=== PATIENT | female | born 1955 | race Caucasian/White ===

== ENCOUNTER 2018-06-15 10:02 | Outpatient (CLI) | payer OTHER ==
--- NOTE | 2018-06-15 14:52 | PET ---
PET WITH CT SKULL TO MID THIGH 06/15/18 CLINICAL HISTORY: Anal cancer. RADIOPHARMACEUTICAL: 13 millicuries fluorine 18 FDG IV. FINDINGS: Corresponding to the patient's provided clinical history of anal cancer, there is abnormal hypermetab olic activity conforming to a mass at the anal verge, with SUV measurements up to 11.2. Additionally, at the perineal region, there is hypermetabolic activity likely related to adjacent malignancy with SUV measuring 5.8. Numerous prominent, hypermetabolic bilateral iliac chain lymph nodes are present, SUV up to approximately 3. There are numerous bilateral perihilar/mediastinal hypermetabolic lymph n odes with SUV measurement up to 5.2. Multifocal abnormal pleural based and parenchymal densities of the chest are present, most pronounced on the right. There is a mild nodular contour of the liver which may be on the basis of cirrhosis. E vidence of prior cholecystectomy. Diffuse soft tissue edema is present. There is colonic diverticulos is. IMPRESSION: Evidence of hypermetabolic activity at the anal verge and adjacent perineum compatible with malignanc y. Bilateral iliac chain adenopathy is present. There is multifocal bilateral perihilar/mediastinal adenopathy. Prominent pleural based and parenchymal disease of the right hemithorax. POS: [facility]
== END 2018-06-15 10:03 | disposition home or self-care (01) ==
LOC: PET 10:02
PROVIDERS: ATTEND Internal Medicine Hematology & Oncology
DX: C21.0 Malignant neoplasm of anus, unspecified (principal); R59.0 Localized enlarged lymph nodes; R91.8 Other nonspecific abnormal finding of lung field
CPT/HCPCS: 78815; A9552

== ENCOUNTER 2018-07-25 12:04 | Inpatient (IN) | payer OTHER ==
[~2018-07-25 12:04] MED LIST: ISOVUE-370 76%-LOCM 1 ML ONE
[2018-07-25 13:37] LABS: Bilirubin Negative (Negative); Blood, Urine Large (Negative); Clarity CLEAR (Clear); Glucose, Urine (Dipstick) Negative (Negative); Leukocyte Moderate (Negative); Nitrite Negative (Negative); Protein, Urine (Dipstick) Negative (Neg-Trace); Specific Gravity, Urine 1.003 (1.002-1.036); Urobilinogen 0.2 mg/dL (0.2-1.0)
[2018-07-25 13:55] LABS: Bacteria/HPF None Seen HPF (None Seen); Hyaline Casts/LPF 0-3 HYALINE CAST LPF (0-3 Hyaline); Pathc Cast-AUWi Flag 0.14 (0-2.49); Squamous Epithelial None Seen HPF (0-3); WBC/HPF 0-3 HPF (0-3)
--- NOTE | 2018-07-25 14:24 | RAD ---
SINGLE VIEW OF THE CHEST: Comparison: 02-28-03 History: Increased shortness of breath. FINDINGS: Single view of the chest shows an enlarged but stable cardiomediastinal silhouette. There is a right sided Mediport with tip in the superior vena cava. There is a moderate right pleural effusion with ad jacent atelectasis versus infiltrate. IMPRESSION: Right pleural effusion with adjacent atelectasis versus infiltrate. POS: [facility]
[2018-07-25] MEDS ORDERED: cefTRIAXone\\ROCEPHIN 1 GM VIAL ONE (14:30)
--- NOTE | 2018-07-25 14:40 | PDOC.FPRHP ---
- History of Present Illness Chief Complaint: SOB History of Present Illness: Ms Jiménez is a 62yo female with pmh of sarcoidosis, Anal CA, Afib, DM, and HTN presenting with SOB. Reports SOB started this morning. Also reports chest congestion and new leg edema. This afternoon she had appt with Oncologist, Dr Boone and Radiation onc, Dr Kumari. At her appt her SpO2 was noted to be 77% and she was instructed to go to ED. She is on chronic O2 at 3L during the day and 5L at night along with CPAP for sleep apnea. Her oncologist Dr Boone started her on a 7 week course of Cipro that ended due to her low WBC count. She is evaluated annually over the past 6 years for pleural effusions, has required thoracentesis twice with 2L taken off and one month ago attempt to drain/test a loculated effusion was unsuccessful. Symptoms are consistent with symptoms she has had in the past when her effusion has gotten too large. Recently had lasix increased to BID from once daily a few months ago. Denies fever, chills, nausea, vomiting, chest pain, dyspnea with position changes. Her Anal cancer was diagnosed end of May this year. She has been receiving radiation and chemo but that last dose of radiation was held due to rash and open lesion on ground as well as a low WBC. The open area are in groin creases and under pannus. She has been treating at home with aquaphor and warm soaks. She reports some bleeding from the area but denies drainage or change in odor. ED Course: Duoneb - Allergies/Adverse Reactions Allergies Allergy/AdvReac Type Severity Reaction Status Date / Time celecoxib [From Celebrex] Allergy Verified 07/25/18 17:55 codeine Allergy Verified 07/25/18 17:55 naproxen Allergy Verified 07/25/18 17:55 Sulfa (Sulfonamide Allergy Verified 07/25/18 17:55 Antibiotics) - Home Medications Medication Instructions Recorded Confirmed Type Carvedilol 1 tab PO BID 02/12/17 07/25/18 History Fluticasone/Salmeterol [Advair 2 puff INH TID 02/12/17 07/25/18 History Diskus 250/50] Rivaroxaban [Xarelto] 1 tab PO HS 02/12/17 07/25/18 History sitaGLIPtin Phosphate [Januvia] 50 mg PO DAILY 02/12/17 07/25/18 History Acetaminophen [Tylenol Regular 325 mg PO Q4H PRN 07/25/18 07/25/18 History Strength] Acetaminophen [Tylenol Regular 650 mg PO Q4H PRN 07/25/18 07/25/18 History Strength] Ciprofloxacin HCl 1 tab PO BID 07/25/18 07/25/18 History Escitalopram Oxalate [Lexapro] 1 tablet PO DAILY-AC 07/25/18 07/25/18 History Furosemide 1 tablet PO DAILY 07/25/18 07/25/18 History Lisinopril [Zestril] 1 tablet PO DAILY 07/25/18 07/25/18 History Potassium Chloride [Klor-Con M10] 1 tab PO DAILY 07/25/18 07/25/18 History Prochlorperazine Maleate 10 mg PO ASDIR 07/25/18 07/25/18 History Sildenafil Citrate [Sildenafil] 1 tablet PO TID 07/25/18 07/25/18 History diphenhydrAMINE HCl 1 tablet PO DAILY 07/25/18 07/25/18 History [Diphenhydramine HCl] - History PMHx: Anal CA, sarcoidosis, Afib, DM2, HTN, MARLENE, Osteoporosis, L1 compression fx PSHx: Cholecystectomy, , hysterectomy FHx: Dad - lung cancer, Mom - aneurysm Social: Denies tobacco, alcohol or drug use. - Review of Systems General: reports: weight/appetite/sleep changes (lost 4 lbs last week). denies : fever/chills ENT: denies: nasal congestion, rhinorrhea Respiratory: reports: cough (at night), shortness of breath Cardiovascular: reports: edema. denies: chest pain Gastrointestinal: reports: diarrhea (chronic, on imodium). denies: abdominal pain Genitourinary: denies: incontinence, dysuria Skin: reports: rashes. denies: lesions Musculoskeletal: reports: arthritis/arthralgias. denies: tenderness Neurological: reports: numbness, weakness - Vital signs BP: 142/71 HR: 108 RR: 26 Tmax: 99.3 Pox: 99% on 4L Wt: 108.4kg - Physical Exam Constitutional: NAD, awake, alert and oriented, well developed -Constitutional: Speaking in short sentences due to SOB HEENT: normocephalic and atraumatic, conjunctiva clear, MMM, oropharynx clear Neck: supple, trachea midline Heart: other (2+ pitting edema on b/l LE) -Heart: Irregular rate and rhythm. Murmur present -Lungs: Decreased breath sounds, mild wheezing in upper lung mejias bilaterally Abdomen: soft, non-tender, bowel sounds present Neurological: no focal deficit -Skin: Radiation skin changes superimposed with moist erythematous open skin areas in bilateral groin and under pannus. No purulent drainage. Psychiatric: normal mood and affect, good judgment and insight, intact recent and remote memory FMR H&P: Results - Labs Result Diagrams: 07/26/18 04:14 07/26/18 04:14 Lab results: Urine Ketones Negative mg/dL (Negative) 07/25/18 13:19 Urine Blood Large (Negative) H 07/25/18 13:19 Urine Nitrite Negative (Negative) 07/25/18 13:19 Ur Leukocyte Esterase Moderate (Negative) H 07/25/18 13:19 Urine RBC 4-6 HPF (0-3) 07/25/18 13:19 Urine WBC 0-3 HPF (0-3) 07/25/18 13:19 Ur Squamous Epith Cells None Seen HPF (0-3) 07/25/18 13:19 Urine Bacteria None Seen HPF (None Seen) 07/25/18 13:19 - EKG Interpretation EKG: Afib with controlled ventricular response - Radiology Interpretation Chest x-ray Status: report reviewed by me Additional comment: Right pleural effusion with atelectasis vs infiltrate CT scan - chest Status: report reviewed by me Additional comment: No evidence of PE, slight interval worsening of loculated R pleural fluid and patchy areas of parenchymal air space and interstitial infilatrate throughout each lung. FMR H&P: A/P - Problem List (1) HTN (hypertension) Current Visit: Yes Status: Chronic Code(s): I10 - ESSENTIAL (PRIMARY) HYPERTENSION (2) MARLENE (obstructive sleep apnea) Current Visit: Yes Status: Chronic Code(s): G47.33 - OBSTRUCTIVE SLEEP APNEA (ADULT) (PEDIATRIC) (3) Pulmonary HTN Current Visit: Yes Status: Chronic Code(s): I27.20 - PULMONARY HYPERTENSION , UNSPECIFIED (4) Afib Current Visit: Yes Status: Chronic Code(s): I48.91 - UNSPECIFIED ATRIAL FIBRILLATION (5) DMII (diabetes mellitus, type 2) Current Visit: Yes Status: Chronic (6) Anal carcinoma Current Visit: Yes Status: Chronic Code(s): C21.0 - MALIGNANT NEOPLASM OF ANUS, UNSPECIFIED (7) Sarcoidosis Current Visit: Yes Status: Chronic Code(s): D86.9 - SARCOIDOSIS, UNSPECIFIED (8) Osteoporosis Current Visit: Yes Status: Chronic Code(s): M81.0 - AGE-RELATED OSTEOPOROSIS W/O CURRENT PATHOLOGICAL FRACTURE (9) Compression fracture of L1 lumbar vertebra Current Visit: Yes Status: Chronic Code(s): S32.010A - WEDGE COMPRESSION FRACTURE OF FIRST LUMBAR VERTEBRA, INIT (10) Acute and chronic respiratory failure with hypoxia Current Visit: Yes Status: Acute Code(s): J96.21 - ACUTE AND CHRONIC RESPIRATORY FAILURE WITH HYPOXIA - Plan Acute on Chronic Respiratory Failure - likely 2/2 pleural effusion vs fluid overload in pt with sarcoidosis - No evidence of PE on CTA, BNP elevated at 418 - CT with worsening of R pleural effusion and patchy areas of parenchymal airspace and interstitial infiltrate bilaterally - Pt on home O2 @2L and 5L at HS with CPAP at HS for MARLENE - Continue to titrate O2 to maintain O2 >90% - Pulmonology consulted, apprec recs - Lasix 40mg IV BID - Strict I&Os/daily wts/fluid restriction - Echo in AM - Procal to eval for infection - Admit to IMCU Hyponatremia - 128, unknown baseline - Will order Urine Na/Osm & Serum Osm - Fluid restriction as pt appears to by hypervolemic Radiation dermatitis with possible infection - Appears to have yeast infection on exam - Consult wound care Afib - Currently rate controlled at 108 - Continue home Xarelto, Coreg Diarrhea - C diff ordered DMII - Mild SSI - Hypoglycemic protocol - ACHS accuchecks - Continue home Januvia Leukocytopenia - Pt recently completed 7 day course Cipro rx'ed by Dr Boone pts oncologist for ppx due to immunocompromised state - Will place pt on neutropenic precautions and diet HTN - Continue home Lisinopril, Coreg Sarcoidosis, Pulm HTN - Continue home Advair and duonebs - Continue O2 MARLENE - Continue CPAP at HS Anal Cancer - Follows with Dr Kumari and Dr Boone Code Status: FULL DVT ppx: Xarelto FMR H&P: Upper Level - Pertinent history 62 y/o F PMHx sarcoidosis, a-fib, anal cancer, and pulmonary HTN presents to the ED complaining of SOB. She reports that she went to her oncologist and was found to have O2 sats of 78% . She reports that her oncologist, Dr. Boone, started her on abx because her WBC count was low. She is chronically on 3L O2 during the day and CPAP at night for her MARLENE. She reports that this morning she could tell that her chest was more congested and over the weekend she was noticing more swelling in her legs. She has been getting her effusion drained for the past 6 years. It has gotten drained twice. They check her effusion every year, but this year when she checked it she said they didn't have to drain it. She states that this is about how she feels whenever her effusion gets too large. She has a cough at night that she states is normal this time of year. She reports some SOB on exertion. She had her lasix increased to twice a day about 2 months ago. She states she had a thoracentesis around that time as well, but they couldn't get into the pocket to drain it. She denies any fever, chills, chest pain, orthopnea. She started radiation for her anal cancer at the end of May 2018 and she was on chemo at the start of the radiation and she will have another dose after radiation. She states that her WBC count was low, so Dr. Boone gave her one week of cipro that she completed last . She has a rash in her groin area and under her panus that she has been using aquaphor and soaks for. She reports that she sweats a lot and the wound will bleed some. She denies any foul odor or drainage otherwise. She states that she had the rash prior to radiation, but it got worse after radiation was started. - Pertinent findings Vitals: BP 148/75, HR 106, RR 18, Temp 99.3, O2 sat 95% on 4L O2 PE: Gen - alert, oriented, appears in respiratory distress CV - irregularly irregular, no murmurs Resp - Speaking in short sentences, tachypenic, decreased breath sounds on R, with some diffuse rales bilaterally. Ext - 2+ pitting edema in BLE Skin - erythematous, moist rash under pannus and in the fold between inner thighs and groin - Plan Date/Time: 07/25/18 1439 I, Brielle Curry MD, PGY-2, have evaluated this patient and agree with findings/ plan as outlined by procurement internship resident. Pertinent changes/additions are listed here. 62 y/o F PMHx sarcoidosis, a-fib, anal cancer presented in Acute Respiratory Failure 1. Acute on Chronic Hypoxic Respiratory Failure Could be 2/2 worsened sarcoidosis vs worsened R pleural effusion vs CHF. Pt initially presented with O2 sat 75% on RA. She was promptly started on O2 by NC and her O2 sats improved, however she would drop down into the 80s when talking. She has been tachycardic and tachypneic, but afebrile. CTA showed no evidence of PE, but worsening of R pleural effusion and patchy areas of parenchymal airspace and interstitial infiltrate bilaterally. Pt fluid overloaded on exam. -Admit to IMCU -Continue O2 prn with CPAP at night for MARLENE -Consult Efrain with Pulmonology, appreciate recs -Echo -Lasix 40mg IV BID -Fluid restrict, daily weights, strict I/O's -Procalcitonin as pt is immunocompromised 2. Pancytopenia Pt chronically pancytopenic since cancer diagnosis, unsure if this was before or after she started chemo. -Neutropenic precautions -Monitor 3. Hyponatremia Initial Na 128. -Will check urine Na, Osm -Concern for hypervolemic hyponatremia, so will fluid restrict pending results 4. Chronic R Pleural Effusion Gets thoracentesis by Dr. Torres at the [facility]. Appears worsened on CT from prior. -Consult Dr. Zuniga with pulm, appreciate recs 5. Radiation dermatitis with possible yeast infection -Consult wound care 6. A-Fib -Continue home meds 7. Sarcoidosis Pt chronically on 3L O2. -Continue duonebs -Continue O2 prn -Pulm on board, appreciate recs 8. Anal Cancer Pt is receiving radiation for anal cancer. Dr. Boone is oncologist. Dr. Kumari radiation oncologist. -Will notify Dr. Boone that pt is admitted -Check c. diff due to pt's ongoing diarrhea 9. DM2 -continue home meds, accuchecks, diabetic diet 10. MARLENE -Continue CPAP at night Code Status: Full VTE ppx: pt on xarelto, will continue Attending Addendum - Attending Addendum Date/Time: 07/26/18 0856 I personally evaluated the patient and discussed the management with Dr. Torres at time of admission yesterday evening. I agree with the History, Examination, Assessment and Plan documented above with any addition or exceptions noted below.
[2018-07-25 15:07] LABS: Hemoglobin 8.8 g/dL (12.0-16.0); Mean Corpuscular HGB CONC 32.6 g/dL (32.0-36.0); Mean Corpuscular Hemoglobin 33.5 pg (27.0-31.0); RBC Distribution Width 23.1 % (11.5-14.5); Red Blood Cell (RBC) Count 2.61 mill/uL (4.20-5.40); White Blood Cell (WBC) Count 1.5 thou/uL (4.8-10.8)
[2018-07-25] MEDS ORDERED: Azithromycin 500 MG VIAL ONE (15:15)
[2018-07-25 15:19] LABS: ALT (SGPT) 9 U/L (8-55); AST (SGOT) 25 U/L (5-34); Albumin 3.7 g/dL (3.4-4.8); Alkaline Phosphatase 240 U/L (40-150); Anion Gap 12 mmol/L (10-20); BUN (Urea Nitrogen) 11 mg/dL (9.8-20.1); Bilirubin, Total 0.9 mg/dL (0.2-1.2); Calc. Creatinine Clearance 0 mL/min (70-130); Calcium 9.5 mg/dL (7.8-10.44); Carbon Dioxide 28 mmol/L (23-31); Chloride 92 mmol/L (98-107); Estimated GFR-MDRD 77; Globulin 4.2 g/dL (2.4-3.5); Glucose 99 mg/dL (80-115); Potassium 4.3 mmol/L (3.5-5.1); Protein, Total 7.9 g/dL (6.0-8.3); Sodium 128 mmol/L (136-145)
[2018-07-25 15:23] LABS: CKMB 0.5 ng/mL (0-6.6); Troponin I Less than 0.010 ng/mL (< 0.028)
[2018-07-25 15:30] LABS: #Lymphocytes 0.2 thou/uL (1.20-3.40); #Monocytes 0.2 thou/uL (0.11-0.59); #Neutrophils 1.1 thou/uL (1.40-6.50); %Basophils 0.3 % (0.0-1.0); %Lymphocytes 10.3 % (21.0-51.0); %Monocytes 14.7 % (0.0-10.0); %Neutrophils 73.6 % (42.0-75.0); Anisocytosis SLIGHT = 6-15 cells (100X) (0-5/hpf); Elliptocytes SLIGHT = 2-5 cells (100X) (0-1/hpf); Hypochromia SLIGHT = 6-15 cells (100X) (0-5/hpf); MDiff Complete? YES; Mean Platelet Volume 10.6 fL (7.4-10.4); Microcytosis SLIGHT = 6-15 cells (100X) (0-5/hpf); PLT Morphology Comment Appears Decreased; Platelet Count 75 thou/uL (130-400); Poikilocytosis SLIGHT = 6-15 cells (100X) (0-5/hpf)
[2018-07-25] MEDS ORDERED: Acetaminophen 500 MG TAB ONE (15:55)
--- NOTE | 2018-07-25 16:16 | CT ---
CT ARTERIOGRAM CHEST WITH IV CONTRAST AND 3D MIP IMAGING: Date: 07/25/18 HISTORY: Dyspnea. COMPARISON: PET CT exam from 06/15/18. FINDINGS: There is good contrast opacification of the pulmonary arteries and thoracic aorta with normal branchi ng of the great vessels from the aortic arch. Scattered areas of enlarged lymph nodes throughout the mediastinum are similar in appearance to recent PET CT. Loculated pleural fluid on the right has incr eased slightly. Patchy areas of parenchymal infiltrate throughout each lung, right worse than left, h ave also progressed somewhat. No evidence of pneumothorax. IMPRESSION: 1. No CT evidence of pulmonary embolus. 2. Slight interval worsening of loculated right pleural fluid and patchy areas of parenchymal air sp mable and interstitial infiltrate throughout each lung. Mediastinal adenopathy appears stable. POS: [facility]
[2018-07-25] MEDS ORDERED: Ondansetron ODT 4 MG TAB SL PRN (17:31)
[2018-07-25] MEDS ORDERED: Acetaminophen 325 MG TAB PO PRN ×3 (17:31→18:49)
[2018-07-25] MEDS ORDERED: Ondansetron PF 4 MG/2 ML Vial IVP PRN (17:31)
[2018-07-25] MEDS ORDERED: Dextrose 50% Abboject 50 ML SYRINGE SLOW IVP PRN (17:45)
[2018-07-25] MEDS ORDERED: Dextrose 5% in Water 1,000 ML IV PRN (17:45)
[2018-07-25] MEDS ORDERED: HumaLOG 300 UNITS/3 ML VIAL SC PRN ×2 (17:45)
[2018-07-25] MEDS ORDERED: Furosemide 40 MG/4 ML VIAL SLOW IVP SCH (18:30)
[2018-07-25] MEDS ORDERED: Prochlorperazine Maleate 5 MG TAB PO SCH (19:00)
[2018-07-25] MEDS ORDERED: Rivaroxaban 10 MG TAB PO SCH (21:00)
[2018-07-25] MEDS: Sildenafil Citrate 20 MG TAB PO SCH (21:19)
[2018-07-25] MEDS: Carvedilol 3.125 MG TAB PO SCH (21:19)
[2018-07-25 21:53] LABS: Osmolality, Urine 217 mOsm/kg (300-900)
[2018-07-25 22:04] LABS: Sodium, Urine 84 mmol/L (Not Available)
[2018-07-25] MEDS ORDERED: Aquaphor 30 GM JAR TOP PRN (22:29)
[2018-07-26] MEDS: Loperamide HCl 2 MG CAP PO PRN ×4 (03:00→20:11)
[2018-07-26 04:51] LABS: Anion Gap 9 mmol/L (10-20); BUN (Urea Nitrogen) 10 mg/dL (9.8-20.1); Calc. Creatinine Clearance 138 mL/min (70-130); Calcium 9.2 mg/dL (7.8-10.44); Carbon Dioxide 35 mmol/L (23-31); Chloride 91 mmol/L (98-107); Cholesterol 117 mg/dl (< 200 Desired); Estimated GFR-MDRD 81; Glucose 94 mg/dL (80-115); HDL Cholesterol 60 mg/dL (>60 Neg Risk); LDL Cholesterol, Calculated 45 mg/dL; Potassium 3.4 mmol/L (3.5-5.1); Sodium 132 mmol/L (136-145); Triglycerides 58 mg/dL (Less than 150)
--- NOTE | 2018-07-26 06:26 | PDOC.FM ---
- Subjective Subjective: Pt has had multiple bloody stools overnight. She has had 2 doses of imodium. Reports difficulty breathing and fatigue related to frequent urination after lasix doses. She expressed having a catheter would help with comfort and shortness of breath. Denies pain at this time. Per Dr Torres he first remembers meeting pt during a 2014 admission for anasarca. She was noted to have nephrotic range proteinuria. Momo Ellison ( Nephrology) was consulted and the workup was ultimately negative. The pleural effusion at this time was not loculated, pleural fluid was slightly exudative. Reports Pt was most recently hospitalized Apr 2018, They removed 40lbs with diuresis. At this time it was noted her pleural effusion had become loculated. Dr Hung Silverio was consulted for decortication but he did not pursue surgery due to her cardiac risk being too high to tolerate surgery. Dr Jarrell Turner is her bushing press operator. Her most recent Echo was 2017: right side of the heart was severely dilated, with severely elevated pulmonary pressures. Pro BNP was 1300. No known left heart failure. Unknown etiology of Pulm HTN. She does have hx of MARLENE but has reportedly been very compliant with CPAP, no smoking hx. Possible hx of previous FenPhen use. - Objective MAR Reviewed: Yes Vital Signs & Weight: Vital Signs (12 hours) Temp Pulse Resp BP Pulse Ox 07/26/18 04:00 97.3 F L 102 H 18 161/78 H 95 07/26/18 00:00 98.2 F 88 17 111/67 92 L 07/25/18 19:00 98.9 F 104 H 18 150/80 H 91 L Weight Weight 107.671 kg I&O: 07/24/18 07/25/18 07/26/18 06:59 06:59 06:59 Intake Total 500 Output Total 1595 Balance -1095 Result Diagrams: 07/26/18 04:14 07/26/18 04:14 <Katt Torres - Last Filed: 07/26/18 11:52> - Objective Vital Signs & Weight: Vital Signs (12 hours) Temp Pulse Resp BP BP Pulse Ox 07/26/18 14:38 117 H 20 92 L 07/26/18 11:10 110 H 28 H 90 L 07/26/18 09:39 121 H 136/82 07/26/18 08:04 95 07/26/18 08:00 98.2 F 121 H 28 H 128/68 34 L 07/26/18 04:00 97.3 F L 102 H 18 161/78 H 95 Weight Admit Weight 110.677 kg Weight 107.671 kg I&O: 07/25/18 07/26/18 07/27/18 06:59 06:59 06:59 Intake Total 500 Output Total 1595 Balance -1095 Result Diagrams: 07/26/18 04:14 07/26/18 04:14 <Reza Little - Last Filed: 07/26/18 15:59> Phys Exam - Physical Examination Constitutional: NAD Respiratory: no wheezing, clear to auscultation bilateral Irregular rate and rhythm Gastrointestinal: soft, non-tender, positive bowel sounds Musculoskeletal: edema present Neurological: moves all 4 limbs Psychiatric: normal affect, A&O x 3 <Katt Torres - Last Filed: 07/26/18 11:52> Dx/Plan (1) HTN (hypertension) Code(s): I10 - ESSENTIAL (PRIMARY) HYPERTENSION Status: Chronic (2) MARLENE (obstructive sleep apnea) Code(s): G47.33 - OBSTRUCTIVE SLEEP APNEA (ADULT) (PEDIATRIC) Status: Chronic (3) Pulmonary HTN Code(s): I27.20 - PULMONARY HYPERTENSION, UNSPECIFIED Status: Chronic (4) Afib Code(s): I48.91 - UNSPECIFIED ATRIAL FIBRILLATION Status: Chronic (5) DMII (diabetes mellitus, type 2) Status: Chronic (6) Anal carcinoma Code(s): C21.0 - MALIGNANT NEOPLASM OF ANUS, UNSPECIFIED Status: Chronic (7) Sarcoidosis Code(s): D86.9 - SARCOIDOSIS, UNSPECIFIED Status: Chronic (8) Osteoporosis Code(s): M81.0 - AGE-RELATED OSTEOPOROSIS W/O CURRENT PATHOLOGICAL FRACTURE Status: Chronic (9) Compression fracture of L1 lumbar vertebra Code(s): S32.010A - WEDGE COMPRESSION FRACTURE OF FIRST LUMBAR VERTEBRA, INIT Status: Chronic (10) Acute and chronic respiratory failure with hypoxia Code(s): J96.21 - ACUTE AND CHRONIC RESPIRATORY FAILURE WITH HYPOXIA Status: Acute - Plan Plan: Acute on Chronic Respiratory Failure - likely 2/2 fluid overload vs pleural effusion - No evidence of PE on CTA, BNP elevated at 418 - CT with worsening of R pleural effusion and patchy areas of parenchymal airspace and interstitial infiltrate bilaterally - Pt on home O2 @2L and 5L at HS with CPAP at HS for MARLENE - Continue to titrate O2 to maintain O2 >90% - Pulmonology consulted, apprec recs - Lasix 40mg IV BID - Strict I&Os/daily wts/fluid restriction - Echo today - Talked with Dr Torres regarding pts previous hospitalizations. - Will consult palliative care - Obtain records from Dr Boone, will call her to find out what her interpretation of the PET scan and the prognosis was. Squamous Cell Rectal Carcinoma - Follows with Dr Kumari and Dr Boone - PET scan 06/15/18 shows metastatic disease to lungs - possible cause of recurrent pleural effusion Hyponatremia, improving - Urine studies support hypervolemic hyponatremia - Continue with Fluid restriction Radiation dermatitis with possible infection - Appears to have yeast infection on exam - Consulted wound care Afib - Continue home Xarelto, Coreg Diarrhea - C diff neg DMII - Mild SSI - Hypoglycemic protocol - ACHS accuchecks - Continue home Januvia Leukocytopenia - Pt recently completed 7 day course Cipro rx'ed by Dr Boone pts oncologist for ppx due to immunocompromised state - Continue neutropenic precautions HTN - Continue home Lisinopril, Coreg Sarcoidosis, Pulm HTN - Reportedly stable per Dr Torres, pts conformal pad former - Continue home Advair and duonebs - Continue O2 Iron Deficiency anemia MARLENE - Continue CPAP at HS - Possible cause of pts Pulm HTN Code Status: FULL DVT ppx: Xarelto <Katt Torres - Last Filed: 07/26/18 11:52> (1) HTN (hypertension) Code(s): I10 - ESSENTIAL (PRIMARY) HYPERTENSION Status: Chronic (2) MARLENE (obstructive sleep apnea) Code(s): G47.33 - OBSTRUCTIVE SLEEP APNEA (ADULT) (PEDIATRIC) Status: Chronic (3) Pulmonary HTN Code(s): I27.20 - PULMONARY HYPERTENSION, UNSPECIFIED Status: Chronic (4) Afib Code(s): I48.91 - UNSPECIFIED ATRIAL FIBRILLATION Status: Chronic (5) DMII (diabetes mellitus, type 2) Status: Chronic (6) Anal carcinoma Code(s): C21.0 - MALIGNANT NEOPLASM OF ANUS, UNSPECIFIED Status: Chronic (7) Sarcoidosis Code(s): D86.9 - SARCOIDOSIS, UNSPECIFIED Status: Chronic (8) Osteoporosis Code(s): M81.0 - AGE-RELATED OSTEOPOROSIS W/O CURRENT PATHOLOGICAL FRACTURE Status: Chronic (9) Compression fracture of L1 lumbar vertebra Code(s): S32.010A - WEDGE COMPRESSION FRACTURE OF FIRST LUMBAR VERTEBRA, INIT Status: Chronic (10) Acute and chronic respiratory failure with hypoxia Code(s): J96.21 - ACUTE AND CHRONIC RESPIRATORY FAILURE WITH HYPOXIA Status: Acute <Reza Little - Last Filed: 07/26/18 15:59> Attending Addendum - Attending Addendum Date/Time: 07/26/18 0559 I personally evaluated the patient and discussed the management with Dr. Torres. I agree with the History, Examination, Assessment and Plan documented above with any addition or exceptions noted below. Appreciate Dr Zuniga and Dr Boone's input. <Reza Little - Last Filed: 07/26/18 15:59>
[2018-07-26 06:57] LABS: Hemoglobin 8.5 g/dL (12.0-16.0); Mean Corpuscular HGB CONC 32.1 g/dL (32.0-36.0); Mean Corpuscular Hemoglobin 33.5 pg (27.0-31.0); Mean Platelet Volume 10.1 fL (7.4-10.4); Platelet Count 76 thou/uL (130-400); RBC Distribution Width 23.4 % (11.5-14.5); Red Blood Cell (RBC) Count 2.55 mill/uL (4.20-5.40); White Blood Cell (WBC) Count 1.5 thou/uL (4.8-10.8)
[2018-07-26] MEDS: Furosemide 40 MG/4 ML VIAL SLOW IVP SCH ×2 (07:12→13:37)
[2018-07-26] MEDS: Mometasone/Formoterol 120 PUFF INHALER INH SCH ×2 (08:00→19:30)
[2018-07-26 08:20] LABS: Anisocytosis SLIGHT = 6-15 cells (100X) (0-5/hpf); Band 7 % (5-11); Lymphocytes 14 % (21-51); MDiff Complete? YES; Macrocytosis SLIGHT = 6-15 cells (100X) (0-5/hpf); Monocytes 12 % (0-10); Neutrophil 67 % (42-75); PLT Morphology Comment Appears Decreased
[2018-07-26] MEDS: Docusate 100 MG CAP PO SCH ×2 (08:54→20:12)
[2018-07-26] MEDS ORDERED: Alogliptin 25 MG TAB PO SCH (09:00)
[2018-07-26] MEDS: Potassium Chloride 10 MEQ TAB PO SCH (09:39)
[2018-07-26] MEDS: Escitalopram Oxalate 20 mg Tablet PO SCH (09:39)
[2018-07-26] MEDS: Lisinopril 5 MG TAB PO SCH (09:39)
[2018-07-26] MEDS: Carvedilol 3.125 MG TAB PO SCH ×2 (09:39→20:11)
[2018-07-26] MEDS: Sildenafil Citrate 20 MG TAB PO SCH ×3 (09:40→20:14)
[2018-07-26] MEDS: Rivaroxaban 10 MG TAB PO SCH (09:41)
[2018-07-26] MEDS ORDERED: Nystatin Powder 15 GM BOT TOP PRN (10:02)
--- NOTE | 2018-07-26 10:57 | CON ---
DATE OF CONSULTATION: 07/26/2018 HISTORY: She is a 62-year-old morbidly obese female, 108 kilograms. She presented to the ER yesterday after she had difficulty breathing and diarrhea while she was at [facility] for an appointment. Her sats were 75 on room air on arrival. She was placed on 4 liters nasal O2. Her oxygen saturation improved. She was transferred to the [facility], the reason for consultation. Recent diagnosis of anal cancer was made, undergoing radiation and chemotherapy. The patient has a remote diagnosis of sarcoidosis made years ago by Dr. Silverio following a mediastinos copy. She was lost to follow up and has not been seen back. This was made in 02/28/2003, cervical mediasti noscopy. About the same time, she underwent a gallbladder surgery by Dr. Swift for symptomatic gallbladder di sease. She has been seeking medical care at [facility] and is seeing Dr. So, Family Medicine physician the . In 2012, somewhere down the line, she was apparently seen back in the office where PFTs showed a mode rately severe restrictive pulmonary impairment with reduced diffusing capacity at 58%. She denies any history of TB or asthma. She can barely walk even 50 feet without getting markedly sh ort of breath. She does not smoke. Dr. Silverio had planned to do a decortication on her about 4 or 5 months ago when she was referred by a senior java software developer at [facility]. After 2 thoracentesis revealed an exudate, thin brown fluid was loculated , but because of her underlying medical problems surgery was a prohibitive risk. It was withheld. Today, she is denying any coughing or wheezing. PAST MEDICAL HISTORY: 1. Pulmonary hypertension. More than likely secondary to underlying morbid obesity, sleep apnea, in terstitial lung disease. 2. Sarcoidosis. 3. Atrial fibrillation. 4. Diabetes. 5. Hypertension. 6. Recurrent pleural effusion. PAST SURGICAL HISTORY: Gallbladder, cystectomy, multiple thoracentesis, at least 2 that I am aware o f. She had a anal biopsy for carcinoma. CHRONIC MEDICATIONS: Januvia 50, ____ 1 tablet 3 times a day, Xarelto 1 tablet at night time, Zestri l 1, Lasix, Advair 250, Lexapro, Coreg. ALLERGIES: CELEBREX and SULFA. REVIEW OF SYSTEMS: Otherwise, 10-point negative. PHYSICAL EXAMINATION: VITAL SIGNS: Her sats are 90% on 5 liters, respirations 28, pulse 120, temperature 99, blood pressur e 120/68. CHEST: Decreased breath sounds, no wheezing. CARDIAC: Normal S1, S2, no gallops. ABDOMEN: Soft, no masses. LABORATORY: White count 1.1, H&H 8 and 26, platelet count 76. Sodium 132. X-ray shows loculated right-sided pleural effusion. BNP 148. IMPRESSION: 1. Respiratory failure secondary to multiple medical problems. 2. Loculated pleural effusion. PET scan showing extensive mediastinal disease. 3. Metastatic anal cancer, possible. 4. Severe restrictive pulmonary impairment with reduced diffusing capacity, probably secondary to in terstitial lung disease. 5. Anal cancer status post chemo. 6. Pancytopenia. PLAN: Clearly pleural effusion cannot be tapped at this stage. Her long-term prognosis is grave. S he is not a candidate for decortication either considering that the PET scan showed mediastinal disea se. This could very well represent metastatic disease. The best option is to continue her on noctur nal CPAP, BiPAP. Continue neb treatments, supportive care. Pulmonary will follow. Consider palliative care input. Consultation note, 70 minutes, 50% spent in direct patient care.
[2018-07-26 11:31] VITALS: BMI 39.4
[2018-07-26] MEDS: Acetaminophen 325 MG TAB PO PRN (20:11)
--- NOTE | 2018-07-26 21:45 | CON ---
DATE OF CONSULTATION: 07/26/2018 HISTORY OF PRESENT ILLNESS: Ms. 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 She received her first cycle of chemotherapy with 5-FU and mitomycin approx imately 2 weeks ago and has been on daily radiation until last week when she developed increasing fernando rrhea as well as skin breakdown and her radiation was held 2 days out of last week into Tuesday of . She has also had some diarrhea as well as rectal bleeding likely secondary to the disease as well as radiation. Because of her sarcoidosis and other pulmonary problems, she has been hypoxic fo r the last several years and she was increasingly hypoxic as well as weak on the day of admission and was sent to the emergency room from the radiation oncologist office. Today, she states she feels be tter since being in the hospital. Her oxygenation level is up and she has a [place] catheter in place that she is not moving around as much. She states at rest she feels much better. She has had 2 epis odes of diarrhea today. One did have significant blood in it. She denies any fevers or chills. PAST MEDICAL HISTORY: 1. Recent diagnosis stage 3 anal squamous cell carcinoma. 2. Long history of sarcoidosis. 3. Secondary pulmonary hypertension. 4. Hypertension. 5. Depression. 6. Obesity . 7. Pancytopenia with leukopenia, likely secondary to sarcoid. CURRENT MEDICATIONS: 1. Tylenol p.r.n. 2. DuoNeb p.r.n. 3. Carvedilol 3.125 9 mg p.o. b.i.d. 4. Lexapro 20 mg p.o. daily. 5. Lasix 40 mg IV daily. 6. Glucagon insulin p.r.n. 7. Lisinopril 5 mg p.o. daily. 8. Loperamide 2 mg p.o. q.4 hours p.r.n. 9. Nystatin powder. 10. Potassium chloride 10 mEq p.o. daily. 11. Xarelto 20 mg p.o. daily. 12. Sildenafil 20 mg p.o. t.i.d. ALLERGIES: CODEINE and NAPROSYN. SOCIAL HISTORY: She lives alone and has a daughter who is quite supportive. She denies tobacco use. She is on chronic oxygen. FAMILY HISTORY: Negative for malignancies. REVIEW OF SYSTEMS: Ten point review of systems is negative with the exception of shortness of breath . Please see the history of present illness. PHYSICAL EXAMINATION: VITAL SIGNS: Temperature 98.2, pulse 117, respirations 20-28, O2 sat 92% on 4 liters nasal cannula, blood pressure 120/68. GENERAL: She is obese, lying in bed in no acute distress, but somewhat short of breath. HEENT: Extraocular muscles are intact, reactive to light. She has no oral cavity lesions. NECK: Supple, without lymphadenopathy. CARDIOVASCULAR: Tachy, but regular rhythm. LUNGS: Decreased breath sounds mostly in the bases. ABDOMEN: Hypoactive bowel sounds. Soft, nontender, obese. NEUROLOGIC: The skin on the lower part of her abdomen in the skin fold is erythematous with some ble eding. EXTREMITIES: No edema. She does have some ecchymoses. LABORATORY DATA: White blood cell count 1.5, hemoglobin 8.5, platelets 76,000, 67% neutrophils, 7% b ands, 14% lymphocytes. CT of the chest done on admission shows no pulmonary embolism. There is interval worsening of a locu lated right pleural fluid and patchy areas of parenchymal airspace, interstitial infiltrate throughou t each lung. There is mediastinal adenopathy which appears stable. IMPRESSION: Ms. Jiménez is a 62-year-old female with: 1. Squamous cell carcinoma of the anus, status post chemoradiotherapy, currently with treatment on h old due to skin breakdown and diarrhea. 2. Hypoxia secondary to sarcoidosis, but recently worsened with her weakness and I suspect this is d ue to thoracic muscle fatigue. 3. Chronic changes in the lungs including mediastinal lymphadenopathy, she does have a pleural based disease in her lungs, which is somewhat chronic and has been monitored by her clinical social work therapist at the [facility]. 4. Pancytopenia, worsened by chemotherapy, but sarcoidosis. 5. Diarrhea. 6. Skin breakdown secondary to radiation. PLAN: 1. I suspect many of her complaints and symptoms are chronic and will improve slowly with time. I r ecommend we optimize her pulmonary status. I do not think she currently needs any antibiotics unless the Pulmonology team thinks that this is necessary. 2. She is getting wound care and palliative care has been consulted. 3. She is on Imodium for the diarrhea. 4. We will follow with you and also radiation oncology get involved and hopefully she can be dischar ged in the next few days.
[2018-07-27 04:47] LABS: #Lymphocytes 0.3 thou/uL (1.20-3.40); #Monocytes 0.2 thou/uL (0.11-0.59); #Neutrophils 0.9 thou/uL (1.40-6.50); %Eosinophils 1.3 % (0.0-10.0); %Lymphocytes 20.7 % (21.0-51.0); %Monocytes 14.5 % (0.0-10.0); %Neutrophils 63.5 % (42.0-75.0); Hemoglobin 7.6 g/dL (12.0-16.0); Mean Corpuscular HGB CONC 32.4 g/dL (32.0-36.0); Mean Platelet Volume 9.7 fL (7.4-10.4); Platelet Count 88 thou/uL (130-400); RBC Distribution Width 23.4 % (11.5-14.5); Red Blood Cell (RBC) Count 2.24 mill/uL (4.20-5.40); White Blood Cell (WBC) Count 1.5 thou/uL (4.8-10.8)
[2018-07-27 05:03] LABS: Anion Gap 11 mmol/L (10-20); BUN (Urea Nitrogen) 9 mg/dL (9.8-20.1); Calc. Creatinine Clearance 140 mL/min (70-130); Carbon Dioxide 36 mmol/L (23-31); Chloride 89 mmol/L (98-107); Estimated GFR-MDRD 85; Glucose 97 mg/dL (80-115); Potassium 3.4 mmol/L (3.5-5.1); Sodium 133 mmol/L (136-145)
--- NOTE | 2018-07-27 06:09 | PDOC.FM ---
- Subjective Subjective: Ms Jiménez is doing very well this morning. She said she feels relaxed, had a great night of sleep and is breathing easily. She had a bed bath this morning and this has really improved her mood. She had multiple episodes of bloody diarrhea yesterday but reports non yet this morning. The imodium has been helpful for treating this. - Objective MAR Reviewed: Yes Vital Signs & Weight: Vital Signs (12 hours) Temp Pulse Resp BP Pulse Ox 07/27/18 03:55 98.0 F 91 18 129/66 93 L 07/26/18 23:55 98.2 F 95 18 117/50 L 93 L 07/26/18 20:00 99.0 F 118 H 20 129/87 94 L 07/26/18 19:21 120 H 24 H 90 L Weight Admit Weight 110.677 kg Weight 107.671 kg I&O: 07/25/18 07/26/18 07/27/18 06:59 06:59 06:59 Intake Total 500 988 Output Total 1593 0483 Balance -9065 -6290 Result Diagrams: 07/27/18 03:26 07/27/18 03:26 <Katt Torres - Last Filed: 07/27/18 11:26> - Objective Vital Signs & Weight: Vital Signs (12 hours) Temp Pulse Resp BP Pulse Ox 07/27/18 11:19 98.3 F 107 H 21 H 119/78 92 L 07/27/18 10:43 117 H 24 H 95 07/27/18 09:13 115 H 07/27/18 08:00 95 07/27/18 07:33 98.1 F 109 H 19 122/64 94 L 07/27/18 06:34 96 07/27/18 06:33 96 20 96 07/27/18 03:55 98.0 F 91 18 129/66 93 L 07/26/18 23:55 98.2 F 95 18 117/50 L 93 L Weight Admit Weight 110.677 kg Weight 103.873 kg I&O: 07/26/18 07/27/18 07/28/18 06:59 06:59 06:59 Intake Total 500 1398 Output Total 1597 5060 Balance -4544 -9063 Result Diagrams: 07/27/18 03:26 07/27/18 03:26 <Reza Little - Last Filed: 07/27/18 11:40> Phys Exam - Physical Examination Constitutional: NAD Neck: supple Respiratory: no wheezing, clear to auscultation bilateral Irregular rate and rhythm Gastrointestinal: soft, non-tender, positive bowel sounds Neurological: moves all 4 limbs Psychiatric: normal affect, A&O x 3 <Katt Torres - Last Filed: 07/27/18 11:26> Dx/Plan (1) HTN (hypertension) Code(s): I10 - ESSENTIAL (PRIMARY) HYPERTENSION Status: Chronic (2) MARLENE (obstructive sleep apnea) Code(s): G47.33 - OBSTRUCTIVE SLEEP APNEA (ADULT) (PEDIATRIC) Status: Chronic (3) Pulmonary HTN Code(s): I27.20 - PULMONARY HYPERTENSION, UNSPECIFIED Status: Chronic (4) Afib Code(s): I48.91 - UNSPECIFIED ATRIAL FIBRILLATION Status: Chronic (5) DMII (diabetes mellitus, type 2) Status: Chronic (6) Anal carcinoma Code(s): C21.0 - MALIGNANT NEOPLASM OF ANUS, UNSPECIFIED Status: Chronic (7) Sarcoidosis Code(s): D86.9 - SARCOIDOSIS, UNSPECIFIED Status: Chronic (8) Osteoporosis Code(s): M81.0 - AGE-RELATED OSTEOPOROSIS W/O CURRENT PATHOLOGICAL FRACTURE Status: Chronic (9) Compression fracture of L1 lumbar vertebra Code(s): S32.010A - WEDGE COMPRESSION FRACTURE OF FIRST LUMBAR VERTEBRA, INIT Status: Chronic (10) Acute and chronic respiratory failure with hypoxia Code(s): J96.21 - ACUTE AND CHRONIC RESPIRATORY FAILURE WITH HYPOXIA Status: Acute - Plan Plan: Acute on Chronic Respiratory Failure - likely 2/2 fluid overload vs pleural effusion - No evidence of PE on CTA, BNP elevated at 418 - CT with worsening of R pleural effusion and patchy areas of parenchymal airspace and interstitial infiltrate bilaterally - Pt on home O2 @2L and 5L at HS with CPAP at HS for MARLENE - Continue to titrate O2 to maintain O2 >90% - Pulmonology consulted, apprec recs - Lasix 40mg IV BID - Strict I&Os/daily wts/fluid restriction - Echo: Dilated RV, RA, Restrictive filling. Mod enlarged RV, LA moderately to severely dilated. Mod enlarged RA. Mild Mitral & Aortic regurg. Severe tricuspid regurg. Severely elevated pulm artery pressure. Mild/mod pulmonic regurg. - Consulted palliative care for symptom management - Consulted Dr Kumari, Radiation oncology - Will transfer to medical, clinically improving Squamous Cell Rectal Carcinoma - Follows with Dr Kumari and Dr Boone - Treatment currently held due to skin breakdown and diarrhea - Discussed with Dr Boone, metabolic areas in lungs are most likely result of pt's sarcoidosis - Oncology, Dr Boone following, apprec recs - Consulted Dr Kumari, Radiation Oncology Hyponatremia, improving - Urine studies support hypervolemic hyponatremia - Continue with Fluid restriction Radiation dermatitis with possible infection - Appears to have yeast infection on exam - Consulted wound care Contraction Alkalosis - 2/2 diuresis Afib - Continue home Xarelto, Coreg Diarrhea - C diff neg - likely 2/2 radiation therapy for anal cancer DMII - Mild SSI - Hypoglycemic protocol - ACHS accuchecks - Continue home Januvia Leukocytopenia - Pt recently completed 7 day course Cipro - Continue neutropenic precautions HTN - Continue home Lisinopril, Coreg Sarcoidosis, Pulm HTN - Reportedly stable per Dr Torres, pts leasing specialist - Continue home Advair and duonebs - Continue O2 Iron Deficiency anemia - Hgb 7.4 - Will discuss with patient the risks vs benefit of taking Xarelto for Afib - Start PO Iron, this will likely help with patients diarrhea as well. MARLENE - Continue CPAP at HS - Possible cause of pts Pulm HTN Code Status: FULL DVT ppx: Xarelto <Ktat Torres - Last Filed: 07/27/18 11:26> (1) HTN (hypertension) Code(s): I10 - ESSENTIAL (PRIMARY) HYPERTENSION Status: Chronic (2) MARLENE (obstructive sleep apnea) Code(s): G47.33 - OBSTRUCTIVE SLEEP APNEA (ADULT) (PEDIATRIC) Status: Chronic (3) Pulmonary HTN Code(s): I27.20 - PULMONARY HYPERTENSION, UNSPECIFIED Status: Chronic (4) Afib Code(s): I48.91 - UNSPECIFIED ATRIAL FIBRILLATION Status: Chronic (5) DMII (diabetes mellitus, type 2) Status: Chronic (6) Anal carcinoma Code(s): C21.0 - MALIGNANT NEOPLASM OF ANUS, UNSPECIFIED Status: Chronic (7) Sarcoidosis Code(s): D86.9 - SARCOIDOSIS, UNSPECIFIED Status: Chronic (8) Osteoporosis Code(s): M81.0 - AGE-RELATED OSTEOPOROSIS W/O CURRENT PATHOLOGICAL FRACTURE Status: Chronic (9) Compression fracture of L1 lumbar vertebra Code(s): S32.010A - WEDGE COMPRESSION FRACTURE OF FIRST LUMBAR VERTEBRA, INIT Status: Chronic (10) Acute and chronic respiratory failure with hypoxia Code(s): J96.21 - ACUTE AND CHRONIC RESPIRATORY FAILURE WITH HYPOXIA Status: Acute <Reza Little - Last Filed: 07/27/18 11:40> Attending Addendum - Attending Addendum Date/Time: 07/27/18 1140 I personally evaluated the patient and discussed the management with Dr. Torres. I agree with the History, Examination, Assessment and Plan documented above with any addition or exceptions noted below. <Reza Little - Last Filed: 07/27/18 11:40>
[2018-07-27] MEDS: Furosemide 40 MG/4 ML VIAL SLOW IVP SCH ×2 (06:24→14:43)
[2018-07-27] MEDS: Mometasone/Formoterol 120 PUFF INHALER INH SCH ×2 (06:33→19:30)
--- NOTE | 2018-07-27 08:37 | PRG ---
DATE OF SERVICE: 07/27/2018 Nithya Jiménez says she is feeling better. She is less short of breath this morning. PHYSICAL EXAMINATION: VITAL SIGNS: Sats are 97% on 4 liters, temperature 98, pulse 109, blood pressure 120/64. CHEST: Chest reveals decreased breath sounds, no wheezing. CARDIAC: Normal S1, S2. No gallops. ABDOMEN: Soft, no masses. LABORATORY DATA: White count 11.5, H&H is 7 and 23. Platelet count 88. Electrolytes are normal. IMPRESSION: 1. Anal cancer status post apparently chemo and radiation. 2. Abnormal x-ray, locular pleural effusion, unknown etiology 3. Abnormal PET scan. 4. Sleep apnea. 5. Morbid obesity. PLAN: Pulmonary-blackburn, continue her nocturnal CPAP. Fluid cannot be drained at this time. Not a candidate for decortication. PT, supportive care. Home when okay with primary care physician.
[2018-07-27] MEDS: Escitalopram Oxalate 20 mg Tablet PO SCH (09:12)
[2018-07-27] MEDS: Carvedilol 3.125 MG TAB PO SCH ×2 (09:12→20:50)
[2018-07-27] MEDS: Rivaroxaban 10 MG TAB PO SCH (09:13)
[2018-07-27] MEDS: Docusate 100 MG CAP PO SCH ×2 (09:13→20:53)
[2018-07-27] MEDS: Lisinopril 5 MG TAB PO SCH (09:13)
[2018-07-27] MEDS: Potassium Chloride 10 MEQ TAB PO SCH (09:13)
[2018-07-27] MEDS: Sildenafil Citrate 20 MG TAB PO SCH ×3 (09:14→20:50)
--- NOTE | 2018-07-27 12:26 | RAD ---
FRONTAL RADIOGRAPH CHEST: Date: 07/27/18 COMPARISON: 07/25/18. HISTORY: Reevaluate pleural effusion. FINDINGS: There is prominent increased density in the right upper lobe centrally, the right perihilar region, a nd the right infrahilar region suggesting a combination of air space disease, volume loss, and pulmon codi vascular congestion. Stable prominent right-sided lobulated pleural effusion noted. There is incr eased density in the left perihilar region. There is a right-sided Port-A-Cath present. Heart and med iastinal contours are stable. Fullness in the hilar regions and superior mediastinum suggest underlyi ng lymphadenopathy. IMPRESSION: No significant interval change. POS: OFF
[2018-07-27 14:49] LABS: Iron 42 ug/dL (50-170); Iron Binding Capacity, Total 210 mcg/dL (265-497)
[2018-07-27] MEDS: Ferrous Sulfate 325 MG TAB PO SCH (17:14)
[2018-07-27] MEDS: Acetaminophen 325 MG TAB PO PRN (19:08)
[2018-07-28 04:38] VITALS: TEMP 98.3
[2018-07-28 05:30] LABS: Anion Gap 11 mmol/L (10-20); BUN (Urea Nitrogen) 10 mg/dL (9.8-20.1); Calc. Creatinine Clearance 139 mL/min (70-130); Calcium 9.5 mg/dL (7.8-10.44); Carbon Dioxide 36 mmol/L (23-31); Chloride 90 mmol/L (98-107); Estimated GFR-MDRD 87; Glucose 93 mg/dL (80-115); Potassium 3.3 mmol/L (3.5-5.1); Sodium 134 mmol/L (136-145)
[2018-07-28 05:57] LABS: Hemoglobin 8.8 g/dL (12.0-16.0); Hypochromia SLIGHT = 6-15 cells (100X) (0-5/hpf); Lymphocytes 12 % (21-51); MDiff Complete? YES; Macrocytosis SLIGHT = 6-15 cells (100X) (0-5/hpf); Mean Corpuscular HGB CONC 30.7 g/dL (32.0-36.0); Mean Corpuscular Hemoglobin 32.8 pg (27.0-31.0); Mean Platelet Volume 9.1 fL (7.4-10.4); Monocytes 8 % (0-10); Neutrophil 80 % (42-75); PLT Morphology Comment Appears Decreased; Platelet Count 100 thou/uL (130-400); Polychromasia SLIGHT = 2-3 cells (100X) (0-2/hpf); RBC Distribution Width 24.1 % (11.5-14.5); Red Blood Cell (RBC) Count 2.69 mill/uL (4.20-5.40); White Blood Cell (WBC) Count 1.2 thou/uL (4.8-10.8)
--- NOTE | 2018-07-28 06:05 | PDOC.FM ---
- Subjective Subjective: Was transferred out of [facility] yesterday evening. She will be going by wheelchair to receive radiation this morning. Denies SOB. Ready to go home. - Objective MAR Reviewed: Yes Vital Signs & Weight: Vital Signs (12 hours) Temp Pulse Resp BP Pulse Ox 07/28/18 04:00 98.3 F 82 18 123/58 L 90 L 07/28/18 00:07 98.1 F 86 18 129/61 91 L 07/27/18 20:00 91 L 07/27/18 19:38 90 L 07/27/18 19:33 98 20 90 L 07/27/18 19:30 90 L 07/27/18 19:17 98.4 F 118 H 16 112/53 L 91 L Weight Admit Weight 110.677 kg Weight 100.879 kg I&O: 07/26/18 07/27/18 07/28/18 06:59 06:59 06:59 Intake Total 500 1398 1734 Output Total 1598 3275 2625 [facility]1095 -1877 -891 Result Diagrams: 07/28/18 05:00 07/28/18 05:00 <Katt Torres - Last Filed: 07/28/18 12:07> - Objective Vital Signs & Weight: Weight Admit Weight 110.677 kg Weight 100.879 kg Result Diagrams: 07/28/18 05:00 07/28/18 05:00 <Reza Little - Last Filed: 07/31/18 10:34> Phys Exam - Physical Examination Constitutional: NAD Neck: supple Respiratory: no wheezing, clear to auscultation bilateral Irregular rate and rhythm Gastrointestinal: soft, non-tender, positive bowel sounds Psychiatric: normal affect, A&O x 3 <Katt Torres - Last Filed: 07/28/18 12:07> Dx/Plan (1) HTN (hypertension) Code(s): I10 - ESSENTIAL (PRIMARY) HYPERTENSION Status: Chronic (2) MARLENE (obstructive sleep apnea) Code(s): G47.33 - OBSTRUCTIVE SLEEP APNEA (ADULT) (PEDIATRIC) Status: Chronic (3) Pulmonary HTN Code(s): I27.20 - PULMONARY HYPERTENSION, UNSPECIFIED Status: Chronic (4) Afib Code(s): I48.91 - UNSPECIFIED ATRIAL FIBRILLATION Status: Chronic (5) DMII (diabetes mellitus, type 2) Status: Chronic (6) Anal carcinoma Code(s): C21.0 - MALIGNANT NEOPLASM OF ANUS, UNSPECIFIED Status: Chronic (7) Sarcoidosis Code(s): D86.9 - SARCOIDOSIS, UNSPECIFIED Status: Chronic (8) Osteoporosis Code(s): M81.0 - AGE-RELATED OSTEOPOROSIS W/O CURRENT PATHOLOGICAL FRACTURE Status: Chronic (9) Compression fracture of L1 lumbar vertebra Code(s): S32.010A - WEDGE COMPRESSION FRACTURE OF FIRST LUMBAR VERTEBRA, INIT Status: Chronic (10) Acute and chronic respiratory failure with hypoxia Code(s): J96.21 - ACUTE AND CHRONIC RESPIRATORY FAILURE WITH HYPOXIA Status: Acute - Plan Plan: Acute on Chronic Respiratory Failure - likely 2/2 fluid overload vs pleural effusion - No evidence of PE on CTA, BNP elevated at 418 - CT with worsening of R pleural effusion and patchy areas of parenchymal airspace and interstitial infiltrate bilaterally - Pt on home O2 @2L and 5L at HS with CPAP at HS for MARLENE - Continue to titrate O2 to maintain O2 >90% - Pulmonology consulted, apprec recs - Switch from IV to PO Lasix - Strict I&Os/daily wts/fluid restriction - Echo: Dilated RV, RA, Restrictive filling. Mod enlarged RV, LA moderately to severely dilated. Mod enlarged RA. Mild Mitral & Aortic regurg. Severe tricuspid regurg. Severely elevated pulm artery pressure. Mild/mod pulmonic regurg. - Consulted Dr Kumari, Radiation oncology Squamous Cell Rectal Carcinoma - Oncology, Dr Boone following, apprec recs - Consulted Dr Kumari, Radiation Oncology Hyponatremia, improving - Urine studies support hypervolemic hyponatremia - Continue with Fluid restriction Radiation dermatitis with possible infection - Appears to have yeast infection on exam - Consulted wound care - Nystatin powder Contraction Alkalosis - 2/2 diuresis Afib - Continue home Xarelto, Coreg - Discussed with patient risks of Xarelto with blood loss in stools. She plans to follow up with her head esthetician Dr Jarrell Turner for this. Pt would like to continue Xarelto until then. Diarrhea - C diff neg - likely 2/2 radiation therapy for anal cancer DMII - Mild SSI - Hypoglycemic protocol - ACHS accuchecks - Continue home Januvia Leukocytopenia - Pt recently completed 7 day course Cipro - Continue neutropenic precautions HTN - Continue home Lisinopril, Coreg Sarcoidosis, Pulm HTN - Reportedly stable per Dr Torres, pts navigation teacher - Continue home Advair and duonebs - Continue O2 Iron Deficiency anemia - Will discuss with patient the risks vs benefit of taking Xarelto for Afib - Continue PO Iron MARLENE - Continue CPAP at HS - Possible cause of pts Pulm HTN Code Status: FULL DVT ppx: Xarelto <Katt Torres - Last Filed: 07/28/18 12:07> (1) HTN (hypertension) Code(s): I10 - ESSENTIAL (PRIMARY) HYPERTENSION Status: Chronic (2) MARLENE (obstructive sleep apnea) Code(s): G47.33 - OBSTRUCTIVE SLEEP APNEA (ADULT) (PEDIATRIC) Status: Chronic (3) Pulmonary HTN Code(s): I27.20 - PULMONARY HYPERTENSION, UNSPECIFIED Status: Chronic (4) Afib Code(s): I48.91 - UNSPECIFIED ATRIAL FIBRILLATION Status: Chronic (5) DMII (diabetes mellitus, type 2) Status: Chronic (6) Anal carcinoma Code(s): C21.0 - MALIGNANT NEOPLASM OF ANUS, UNSPECIFIED Status: Chronic (7) Sarcoidosis Code(s): D86.9 - SARCOIDOSIS, UNSPECIFIED Status: Chronic (8) Osteoporosis Code(s): M81.0 - AGE-RELATED OSTEOPOROSIS W/O CURRENT PATHOLOGICAL FRACTURE Status: Chronic (9) Compression fracture of L1 lumbar vertebra Code(s): S32.010A - WEDGE COMPRESSION FRACTURE OF FIRST LUMBAR VERTEBRA, INIT Status: Chronic (10) Acute and chronic respiratory failure with hypoxia Code(s): J96.21 - ACUTE AND CHRONIC RESPIRATORY FAILURE WITH HYPOXIA Status: Acute <Reza Little - Last Filed: 07/31/18 10:34> Attending Addendum - Attending Addendum Date/Time: 07/31/18 1034 I personally evaluated the patient and discussed the management with Dr. Torres on 07/28/18. I agree with the History, Examination, Assessment and Plan documented above with any addition or exceptions noted below. <Reza Little - Last Filed: 07/31/18 10:34>
[2018-07-28] MEDS: Furosemide 40 MG/4 ML VIAL SLOW IVP SCH (06:10)
[2018-07-28] MEDS: Mometasone/Formoterol 120 PUFF INHALER INH SCH (06:22)
[2018-07-28] MEDS: Ferrous Sulfate 325 MG TAB PO SCH (08:07)
[2018-07-28] MEDS: Carvedilol 3.125 MG TAB PO SCH (08:07)
[2018-07-28] MEDS: Potassium Chloride 10 MEQ TAB PO SCH (08:07)
[2018-07-28] MEDS: Lisinopril 5 MG TAB PO SCH (08:08)
[2018-07-28] MEDS: Sildenafil Citrate 20 MG TAB PO SCH ×2 (08:08→14:31)
[2018-07-28] MEDS: Escitalopram Oxalate 20 mg Tablet PO SCH (08:08)
[2018-07-28] MEDS: Rivaroxaban 10 MG TAB PO SCH (08:28)
[2018-07-28] MEDS: Acetaminophen 325 MG TAB PO PRN (08:30)
[2018-07-28 09:02] VITALS: BP 140/63
--- NOTE | 2018-07-28 09:24 | PRG ---
DATE OF SERVICE: 07/28/2018 This morning she is awake, alert, responsive, no longer having much difficulty breathing. PHYSICAL EXAMINATION: VITAL SIGNS: Sats are 92 on 3 liters, temperature is 98, pulse 98, blood pressure 140/63. CHEST: Decreased breath sounds in the right lung. Left lung unremarkable. CARDIAC: Normal S1-S2. No gallops. ABDOMEN: Soft. No masses. X-ray shows stable pleural effusions, clearly not significant enough to tap. White count is 1.2, H&H 8 and 28, platelet count is 100. Electrolytes are normal. Potassium 3.3. IMPRESSION: 1. Anal cancer, status post radiation and chemo. 2. Chronic obstructive pulmonary disease. 3. Pleural effusion, etiology unclear. 4. History of sarcoidosis. PLAN: Pulmonary has nothing additional to offer at this time. Continue neb treatments, supportive c are. Please call as needed.
[2018-07-28] MEDS ORDERED: Potassium Chloride 10 MEQ TAB PO SCH (17:00)
--- NOTE | 2018-07-29 23:07 | EKG ---
Test Reason : Blood Pressure : / mmHG Vent. Rate : 095 BPM Atrial Rate : 102 BPM P-R Int : 000 ms QRS Dur : 088 ms QT Int : 342 ms P-R-T Axes : 000 113 -03 degrees QTc Int : 429 ms Atrial fibrillation Right axis deviation Abnormal QRS-T angle, consider primary T wave abnormality Abnormal ECG Confirmed by DRAKE HOWELL ([id number]), editor magazine RADHA FERRARO ([id number]) on 07/29/2018 11:07:11 PM Referred By: Confirmed By:DRAKE HOWELL
--- NOTE | 2018-07-31 09:43 | DIS-2 ---
DATE OF ADMISSION: 07/25/2018 DATE OF DISCHARGE: 07/28/2018 RESIDENT: Katt Torres, PGY-1 ADMITTING ATTENDING: Reza Little M.D. DISCHARGE ATTENDING: Reza Little M.D. CONSULTATIONS: 1. Pulmonology, Dr. Zuniga. 2. Oncology, Dr. Boone. 3. Radiation Oncology, Dr. Kumari. PROCEDURES: 1. Chest x-ray: Right pleural effusion with adjacent atelectasis versus infiltrate. 2. Chest thorax CTA: No evidence of PE. Slight interval receiving of loculated right pleural effusion and patchy areas of parenchymal airspace and interstitial infiltrate throughout each lung. Mediastinal adenopathy appears stable. 3. Echocardiogram dilated RV and RA EF 50%-55%. Restrictive filling pattern. Moderately enlarged right ventricle. Left atrium moderately to severely dilated. Moderately enlarged right atrium. Mild mitral and aortic regurgitation. Severe tricuspid regurgitation. Severely elevated pulmonary arterial pressure. [id number] pulmonic regurg present. PRIMARY DIAGNOSIS: Acute on chronic respiratory failure. SECONDARY DIAGNOSES: 1. Squamous cell rectal carcinoma. 2. Hyponatremia, improving. 3. 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 4. Contraction alkalosis. 5. Atrial fibrillation. 6. Diarrhea, resolved. 7. Type 2 diabetes. 8. Leukocytopenia. 9. Hypertension. 10. Sarcoidosis. 11. Pulmonary hypertension. 12. Iron-deficiency anemia. 13. Obstructive sleep apnea. DISCHARGE MEDICATIONS: 1. Acetaminophen 650 q.4 hours p.r.n. 2. Carvedilol 3.125 mg b.i.d. 3. Diphenhydramine 25 mg daily. 4. Lexapro 20 mg daily. 5. Ferrous sulfate 325 mg b.i.d. 6. Fluticasone Solu-Medrol 2 inhalations t.i.d. 7. Furosemide 40 mg daily. 8. DuoNeb 3 mL nebulized q.4 hours. 9. Lisinopril 5 mg daily. 10. Loperamide 2 mg p.o. p.r.n. 11. Nystatin powder b.i.d. 12. Potassium chloride 10 mEq daily. 13. Prochlorperazine maleate 10 mg as directed. 14. Xarelto 20 mg at bedtime. 15. Sildenafil 20 mg t.i.d. 16. Januvia 50 mg daily. DISCONTINUED MEDICATIONS: None. HISTORY OF PRESENT ILLNESS AND HOSPITAL COURSE: Ms. 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 She had a Radiation Oncology appointment when she was noted to have SpO2 at 75% on 3 liters. She has chronic O2 of 3 liters during the day, 5 liters at night along with CPAP for her sleep apnea. 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 She was diagnosed with sarcoidosis by Dr. Silverio following a mediastinoscopy, 02/28/2003. She had recently been hospitalized in 04/2018, where they removed 40 pounds of fluid with diuresis. During this hospitialization Dr. Torres noted her pleural effusion had become loculated. Dr. Silverio was consulted for decortication. Two thoracentesis revealed an exudate thin-brown fluid, but because of her underlying medical problems, surgery was contraindicated at the time. During this admission patient was started on IV Lasix 40 mg b.i.d. Oxygen was titrated to maintain O2 sats greater than 90%. CT showed worsening of right pleural effusion and patchy areas of parenchymal airspace and interstitial infiltrate bilaterally. After IV diuresis, patient denied shortness of breath and was titrated down to her home dose of oxygen. It is likely that her symptoms were related to volume overload rather than her pleural effusion and sarcoidosis. In regards to her squamous cell rectal carcinoma, she follows with Dr. Boone and Dr. Kumari. They both consulted and patient received radiation on 2017. Patient was noted to be hyponatremic to 128 on admission, this improved and urine studies reported hypervolemic hyponatremia. She was put on fluid restriction and this improved. Patient did have some open skin irritation and redness around the groin. Redness likely secondary to radiation dermatitis, but open wounds in skin folds were likely [place] infection. Wound Care was consulted and patient was treated with nystatin powder. Prior to hospitalization, patient had complained of diarrhea that continued during first 2 days of hospitalization. Stools were bloody as a result of her radiation and underlying anal cancer. C. diff was negative and symptoms were controlled with Imodium. Patient does have iron-deficiency anemia. Her initial hemoglobin was 8.8, this dropped to 7.6 on the third day of her hospitalization. Iron was started b.i.d., and there was concern for possible transfusion if the patient continued to have bloody diarrhea. Diarrhea did resolve and hemoglobin increased to 8.8 prior to discharge without needing a transfusion. There was discussion with patient over benefit of stopping Xarelto due to her risk of bleeding vs the risk of clot or stroke in setting of chronic atrial fibrillation. She plans to continue Xarelto and discuss these risks with her grocery worker, Dr. Sivakumar Turner as an outpatient. Patient's medical conditions of atrial fibrillation are controlled with Coreg. Type 2 diabetes, hypertension were controlled throughout hospitalization with home medications. Patient does have leukocytopenia 1.2. Prior to admission, she had just completed a 7-day course of Cipro prescribed by oncology. BRIONNA
== END 2018-07-28 15:01 | disposition home or self-care (01) | DRG 189 ==
LOC: ERS 12:04 → IMCU/EMU 17:42 → ONC 07-27 16:07
PROVIDERS: ADMIT Family Medicine; ATTEND Family Medicine
DX: J96.21 Acute and chronic respiratory failure with hypoxia (principal); D61.810 Antineoplastic chemotherapy induced pancytopenia; S32.010A Wedge compression fracture of first lumbar vertebra, initial encounter for closed fracture; C21.0 Malignant neoplasm of anus, unspecified; J90 Pleural effusion, not elsewhere classified; E87.1 Hypo-osmolality and hyponatremia; E87.3 Alkalosis; Z92.3 Personal history of irradiation; Z92.21 Personal history of antineoplastic chemotherapy; D86.9 Sarcoidosis, unspecified; E66.01 Morbid (severe) obesity due to excess calories; T45.1X5A Adverse effect of antineoplastic and immunosuppressive drugs, initial encounter; I27.20 Pulmonary hypertension, unspecified; Z99.81 Dependence on supplemental oxygen; Z68.38 Body mass index [BMI] 38.0-38.9, adult; E11.9 Type 2 diabetes mellitus without complications; I10 Essential (primary) hypertension; L59.8 Other specified disorders of the skin and subcutaneous tissue related to radiation; B37.9 Candidiasis, unspecified; R19.7 Diarrhea, unspecified; G47.33 Obstructive sleep apnea (adult) (pediatric); Z79.899 Other long term (current) drug therapy; Z79.84 Long term (current) use of oral hypoglycemic drugs; Z79.01 Long term (current) use of anticoagulants; Z79.51 Long term (current) use of inhaled steroids; F32.9 Major depressive disorder, single episode, unspecified; Z88.5 Allergy status to narcotic agent; Z88.8 Allergy status to other drugs, medicaments and biological substances; M81.0 Age-related osteoporosis without current pathological fracture; D50.9 Iron deficiency anemia, unspecified
CPT/HCPCS: 36415; 36416; 71045; 71275; 77336; 77386; 80048; 80053; 80061; 81003; 81015; 82553; 82728; 83540; 83550; 83605; 83880; 83930; 83935; 84145; 84300; 84484; 85025; 85060; 87324; 87449; 93005; 93306; 94640; 94664; 94760; 96365; 96367; J0456; J0696; J1940; J3480; J7620

== ENCOUNTER 2018-08-07 12:42 | Day surgery (SDC) | payer OTHER ==
[2018-08-07] MEDS ORDERED: Sodium Chloride 0.9% 20 ML ONE (12:55)
[2018-08-07] MEDS ORDERED: Acetaminophen 500 MG TAB PO SCH (13:15)
[2018-08-07] MEDS ORDERED: diphenhydrAMINE 25 MG CAP PO SCH (13:15)
[2018-08-07 17:01] LABS: Hemoglobin 8.3 g/dL (12.0-16.0)
[2018-08-07 18:53] VITALS: BP 145/64; TEMP 98.4
== END 2018-08-07 19:24 | disposition home or self-care (01) ==
LOC: ONC/OP 12:42
PROVIDERS: ATTEND Internal Medicine Hematology & Oncology
PROC: 30233N1 Transfusion of Nonautologous Red Blood Cells into Peripheral Vein, Percutaneous Approach (ICD-10-PCS; principal; 2018-08-07)
DX: D64.9 Anemia, unspecified (principal); D69.6 Thrombocytopenia, unspecified; Z79.01 Long term (current) use of anticoagulants; Z79.84 Long term (current) use of oral hypoglycemic drugs; Z79.899 Other long term (current) drug therapy; Z88.2 Allergy status to sulfonamides; Z88.5 Allergy status to narcotic agent; Z88.6 Allergy status to analgesic agent
CPT/HCPCS: 36430; 85014; 85018; 86850; 86900; 86901; J1642; P9016

== ENCOUNTER 2018-08-19 17:01 | Inpatient (IN) | payer OTHER ==
[2018-08-19] MEDS ORDERED: Morphine 4 MG/ML VIAL ONE (17:49)
[2018-08-19 18:14] LABS: Hemoglobin 8.1 g/dL (12.0-16.0); Mean Corpuscular HGB CONC 32.1 g/dL (32.0-36.0); Mean Corpuscular Hemoglobin 34.7 pg (27.0-31.0); RBC Distribution Width 21.8 % (11.5-14.5); Red Blood Cell (RBC) Count 2.34 mill/uL (4.20-5.40); White Blood Cell (WBC) Count 1.5 thou/uL (4.8-10.8)
[2018-08-19 18:29] LABS: ALT (SGPT) 8 U/L (8-55); AST (SGOT) 17 U/L (5-34); Alkaline Phosphatase 192 U/L (40-150); Anion Gap 13 mmol/L (10-20); BUN (Urea Nitrogen) 23 mg/dL (9.8-20.1); Bilirubin, Total 0.8 mg/dL (0.2-1.2); Calc. Creatinine Clearance 0 mL/min (70-130); Calcium 8.6 mg/dL (7.8-10.44); Carbon Dioxide 25 mmol/L (23-31); Chloride 93 mmol/L (98-107); Estimated GFR-MDRD 38; Globulin 3.8 g/dL (2.4-3.5); Glucose 92 mg/dL (80-115); Potassium 4.4 mmol/L (3.5-5.1); Protein, Total 6.8 g/dL (6.0-8.3); Sodium 127 mmol/L (136-145)
[2018-08-19 18:34] LABS: Anisocytosis SLIGHT = 6-15 cells (100X) (0-5/hpf); Hypochromia SLIGHT = 6-15 cells (100X) (0-5/hpf); MDiff Complete? YES; Mean Platelet Volume 9.5 fL (7.4-10.4); Monocytes 2 % (0-10); Neutrophil 98 % (42-75); PLT Morphology Comment Appears Decreased; Platelet Count 88 thou/uL (130-400)
[2018-08-19] MEDS ORDERED: Piperacillin/Tazobactam 4.5 GM VIAL ONE (18:58)
--- NOTE | 2018-08-19 19:19 | PDOC.FPRHP ---
- History of Present Illness Chief Complaint: rectal bleeding, skin breakdown s/p radiation History of Present Illness: This is a 62yo F with a PMH significant for anal cancer, atrial fibrillation, DM , HTN, and sarcoidosis. Patient presents to the ED today due to rectal bleeding and pain in the groin and genital area. The patient notes that the bleeding started around 0300 this morning. The patient was unable to move due to the pain and urinated on herself today. The patient states it was allyson blood that ran down her leg, but she was unable to quantify the amount. The patient states she has had diarrhea since starting chemo/radiation. Patient endorses dysuria worse over the last day. Patient states that pain at home was 8/10, and upon our exam in the ED, patient has 0/10 pain after being given morphine. Patient called her oncologist who prescribed her ciprofloxacin for this infection. Patient has taken 2 days of this medication. Patient states she took a shower today but is unable to fully clean the area due to body habitus and pain. Patient denies other symptoms including NV, fever, chills, abdominal pain, chest pain, dizziness or lightheadedness. Of note, patient was recently discharged from [facility] on 07/28 for acute on chronic resp failure. ED Course: 1g IV Vancomycin, 4.5g IV zosyn, 900 mg IV clindamycin, 8mg IV morphine, 1L NS - Allergies/Adverse Reactions Allergies Allergy/AdvReac Type Severity Reaction Status Date / Time celecoxib [From Celebrex] Allergy Verified 08/19/18 23:06 codeine Allergy Verified 08/19/18 23:06 naproxen Allergy Verified 08/19/18 23:06 Sulfa (Sulfonamide Allergy Verified 08/19/18 23:06 Antibiotics) - Home Medications Medication Instructions Recorded Confirmed Type Carvedilol 1 tab PO BID 02/12/17 08/19/18 History Fluticasone/Salmeterol [Advair 2 puff INH TID 02/12/17 08/19/18 History Diskus 250/50] Rivaroxaban [Xarelto] 2 tab PO DAILY 02/12/17 08/19/18 History sitaGLIPtin Phosphate [Januvia] 50 mg PO DAILY 02/12/17 08/19/18 History Acetaminophen [Tylenol Regular 650 mg PO Q4H PRN 07/25/18 08/19/18 History Strength] Ciprofloxacin HCl 1 tab PO BID 07/25/18 08/19/18 History Escitalopram Oxalate [Lexapro] 1 tablet PO DAILY-AC 07/25/18 08/19/18 History Furosemide 1 tablet PO DAILY 07/25/18 08/19/18 History Lisinopril [Zestril] 1 tablet PO DAILY 07/25/18 08/19/18 History Potassium Chloride [Klor-Con M10] 1 tab PO DAILY 07/25/18 08/19/18 History Prochlorperazine Maleate 10 mg PO ASDIR 07/25/18 08/19/18 History Sildenafil Citrate [Sildenafil] 1 tablet PO TID 07/25/18 08/19/18 History Ipratropium/Albuterol Sulfate 3 ml NEB [id number] neb 07/28/18 08/19/18 Rx [DuoNeb] Loperamide HCl [Imodium] 2 mg PO PRN PRN cap 07/28/18 08/19/18 Rx - History PMHx: atrial fibrillation, sarcoidosis, DM, HTN, anal cancer, MARLENE PSHx: hysterectomy, , cholecystectomy FHx: father - lung cancer, multiple other cancers in the family Social: denies tobacco or drug use, occasional alcohol use - Review of Systems General: denies: fever/chills, weight/appetite/sleep changes, night sweats, fatigue Eyes: denies: eye pain, vision changes ENT: denies: nasal congestion Respiratory: reports: shortness of breath. denies: cough, congestion Cardiovascular: denies: chest pain, palpitation, edema Gastrointestinal: reports: diarrhea, abdominal pain. denies: nausea, vomiting, constipation Genitourinary: reports: dysuria. denies: incontinence, polyuria, discharge Skin: reports: rashes, lesions. denies: jaundice, itching - Vital signs BP: 137/109 HR: 109 RR: 19 Tmax: 98.6F Pox: 96% on 4L O2 Wt: 107.95kg - Physical Exam Constitutional: NAD, awake, alert and oriented, well developed HEENT: normocephalic and atraumatic, PERRLA, EOMI, grossly normal vision, grossly normal hearing Neck: supple, FROM, trachea midline Chest: no-tender to palpation, no lesions Heart: RRR Lungs: CTAB, no respiratory distress, good air movement, no wheezing Abdomen: soft, non-tender, bowel sounds present, no masses/distention Musculoskeletal: ROM grossly normal Neurological: no focal deficit Skin: capillary refill <2 seconds -Skin: Grade 2 wound extending from panus to perineal area. Purulent drainage from seepage in skin folds, desquamation in skin folds. Warm and erythematous. Erythema spreading to anterior thighs bilaterally Psychiatric: normal mood and affect, good judgment and insight, intact recent and remote memory FMR H&P: Results - Labs Result Diagrams: 08/20/18 04:22 08/20/18 04:22 Lab results: WBC 1.5 thou/uL (4.8-10.8) L 08/19/18 18:00 Hgb 8.1 g/dL (12.0-16.0) L 08/19/18 18:00 Hct 25.3 % (36.0-47.0) L 08/19/18 18:00 MCV 108.0 fL (78.0-98.0) H 08/19/18 18:00 Plt Count 88 thou/uL (130-400) L 08/19/18 18:00 Sodium 127 mmol/L (136-145) L 08/19/18 18:00 Potassium 4.4 mmol/L (3.5-5.1) 08/19/18 18:00 Chloride 93 mmol/L (98-107) L 08/19/18 18:00 Carbon Dioxide 25 mmol/L (23-31) 08/19/18 18:00 BUN 23 mg/dL (9.8-20.1) H 08/19/18 18:00 Creatinine 1.40 mg/dL (0.6-1.1) H 08/19/18 18:00 Glucose 92 mg/dL (80-115) 08/19/18 18:00 Lactic Acid 0.8 mmol/L (0.5-2.2) 08/19/18 18:00 Calcium 8.6 mg/dL (7.8-10.44) 08/19/18 18:00 Total Bilirubin 0.8 mg/dL (0.2-1.2) 08/19/18 18:00 AST 17 U/L (5-34) 08/19/18 18:00 ALT 8 U/L (8-55) 08/19/18 18:00 Alkaline Phosphatase 192 U/L (40-150) H 08/19/18 18:00 Serum Total Protein 6.8 g/dL (6.0-8.3) 08/19/18 18:00 Albumin 3.0 g/dL (3.4-4.8) L 08/19/18 18:00 FMR H&P: A/P - Problem List (1) Cellulitis Current Visit: Yes Status: Acute Code(s): L03.90 - CELLULITIS, UNSPECIFIED (2) Afib Current Visit: No Status: Chronic Code(s): I48.91 - UNSPECIFIED ATRIAL FIBRILLATION (3) Anal carcinoma Current Visit: No Status: Chronic Code(s): C21.0 - MALIGNANT NEOPLASM OF ANUS, UNSPECIFIED (4) DMII (diabetes mellitus, type 2) Current Visit: No Status: Chronic (5) HTN (hypertension) Current Visit: No Status: Chronic Code(s): I10 - ESSENTIAL (PRIMARY) HYPERTENSION (6) MARLENE (obstructive sleep apnea) Current Visit: No Status: Chronic Code(s): G47.33 - OBSTRUCTIVE SLEEP APNEA (ADULT) (PEDIATRIC) (7) Pulmonary HTN Current Visit: No Status: Chronic Code(s): I27.20 - PULMONARY HYPERTENSION, UNSPECIFIED (8) Sarcoidosis Current Visit: No Status: Chronic Code(s): D86.9 - SARCOIDOSIS, UNSPECIFIED (9) Proctitis, radiation Current Visit: Yes Status: Acute Code(s): K62.7 - RADIATION PROCTITIS (10) Hyponatremia Current Visit: Yes Status: Acute Code(s): E87.1 - HYPO-OSMOLALITY AND HYPONATREMIA (11) Leukopenia Current Visit: Yes Status: Acute Code(s): D72.819 - DECREASED WHITE BLOOD CELL COUNT, UNSPECIFIED (12) Neutropenia Current Visit: Yes Status: Acute Code(s): D70.9 - NEUTROPENIA, UNSPECIFIED - Plan Radiation dermatitis w/ superimposed cellulitis - Grade 2 dermatitis extending from panus to perineum - continue vanc, zosyn. Discontinue clindamycin and home med of cipro - Will give IVF - blood and wound cx - Morphine PRN, ultram SKIP - Consult wound care - Will obtain pro-ganesh Proctitis - 2/2 radiation - aware, will monitor H&H - Bowel regimen in place MARS - Cr 1.4, increased from baseline of previous stays - Will give IVF - Monitor with BMP in AM Hyponatremia - Na 127 - Will give IVF - diagnosed with hypervolemic hyponatremia at last visit, can consider fluid restriction/lasix after correction of MARS - Repeat BMP in the AM - Obtain serum urine and urine sodium Leuckopenia with left shift, neutropenia - WBC: 1.5, ANC 1500, Neutrophils 98% - Repeat CBC in the AM - Abx treatment - Wound, blood cx - Will place on neutropenic precautions Hx of DM - aware, continue home meds - mild SS, ACHS accuchecks Hx of MARLENE - on bipap at home, will continue here Hx of Sarcoidosis - aware, continue home meds Hx of atrial fibrillation - aware, continue home meds DISPO: will admit to medical for tx of cellulitis CODE: FULL Case discussed with Dr. Francois FMR H&P: Upper Level - Pertinent history Nithya Jiménez is a 62 year old female with a history of rectal cancer currently undergoing chemo and radiation who presents to the ED with one day history of severe groin pain and rectal bleeding. - Pertinent findings Vitals BP: 137/109 P: 100-115 RR: 19 T: 98.6 SpO2: 96% on 4L NC Physical Exam: General: alert and oriented; in no distress Heart: irregularly irregular rhythm; no murmurs, rubs, or gallops. Skin: significant area of erythema extending from pannus to perineum with superficial moist desquamation; no crepitus noted. Labs reviewed - Plan Date/Time: 08/19/181857 Ayesha Gunter, have evaluated this patient and agree with findings/plan as outlined by corporate legal intern resident. Pertinent changes/additions are listed here. Grade 2 Radiation dermatitis with superimposed cellulitis - no concern for necrotizing infection at this time given lack of edema/ crepitus on exam and lack of toxic systemic symptoms - will continue antibiotic coverage with Vanc and Zosyn. - Procal pending. - will order wound care -Tramadol for pain control. - Blood cultures and wound GS/Culture pending. Radiation proctitis - H/H stable compared to last visit. - antidiarrheals as needed. Acute kidney injury - Cr increased from baseline. - will administer IV fluids - repeat BMP in AM Hyponatremia - likely related to hypovolemia. - IV fluids Chronic hypoxic respiratory failure secondary to PAH and sarcoidosis - 3/4 L NC - Continue Sildenafil for PAH Neutropenia - ANC of 1470. No need for neutropenic precautions at this time. - will continue antibiotics Atrial fibrillation - rate currently controlled. - continue Coreg. - will continue Xarelto for anticoagulation. Obstructive sleep apnea - CPAP at night. Hypertension - stable. - continue home regimen Diabetes Mellitus - continue home regimen - AC/HS accuchecks. Attending Addendum - Attending Addendum Date/Time: 08/20/18 [id number] I personally evaluated the patient and discussed the management with Dr. Ellison/ Teri. I agree with the History, Examination, Assessment and Plan documented above with any addition or exceptions noted below.
[2018-08-19] MEDS ORDERED: Nystatin Powder 15 GM BOT TOP PRN (20:14)
[2018-08-19] MEDS ORDERED: Prochlorperazine Maleate 5 MG TAB PO SCH (20:15)
[2018-08-19] MEDS ORDERED: Clindamycin/D5W 900 mg/50 ml Premix Bag ONE (21:01)
[2018-08-19] MEDS ORDERED: HumaLOG 300 UNITS/3 ML VIAL SC PRN (22:05)
[2018-08-19] MEDS ORDERED: Ondansetron ODT 4 MG TAB PO PRN (22:05)
[2018-08-19] MEDS ORDERED: Dextrose 5% in Water 1,000 ML IV PRN (22:05)
[2018-08-19] MEDS ORDERED: Senokot S 8.6-50 MG TAB PO PRN (22:05)
[2018-08-19] MEDS ORDERED: Ondansetron PF 4 MG/2 ML Vial IVP PRN (22:05)
[2018-08-19] MEDS ORDERED: Dextrose 50% Abboject 50 ML SYRINGE SLOW IVP PRN (22:05)
[2018-08-19 22:29] LABS: Bilirubin Negative (Negative); Blood, Urine Small (Negative); Clarity CLOUDY (Clear); Glucose, Urine (Dipstick) Negative (Negative); Leukocyte Moderate (Negative); Nitrite Negative (Negative); Protein, Urine (Dipstick) Trace mg/dL (Neg-Trace); Specific Gravity, Urine 1.017 (1.002-1.036); Urobilinogen 0.2 mg/dL (0.2-1.0)
[2018-08-19 22:30] LABS: Bacteria/HPF None Seen HPF (None Seen); Hyaline Casts/LPF 7-10 HYALINE CAST LPF (0-3 Hyaline); Pathc Cast-AUWi Flag 1.88 (0-2.49); RBC/HPF 0-3 HPF (0-3)
[2018-08-19 22:31] LABS: Yeast-AUWi Flag 35.7 (0-25.0)
[2018-08-19 22:32] LABS: Yeast-All Forms None Seen HPF (None Seen)
[2018-08-19 22:33] LABS: Crystals/HPF 1+ URIC ACID HPF (Negative)
[2018-08-19] MEDS: Carvedilol 3.125 MG TAB PO SCH ×2 (22:38→22:48)
[2018-08-19] MEDS: Sildenafil Citrate 20 MG TAB PO SCH (22:38)
[2018-08-19 22:39] LABS: Osmolality, Urine 338 mOsm/kg (300-900)
[2018-08-19] MEDS: Rivaroxaban 10 MG TAB PO SCH (22:48)
[2018-08-19] MEDS: Sodium Chloride 0.9% 1,000 ML IV SCH (22:49)
[2018-08-19] MEDS: Morphine 2 MG/ML SYRINGE SLOW IVP PRN (22:52)
[2018-08-20 00:03] LABS: Sodium, Urine Less than 20 mmol/L (Not Available)
[2018-08-20] MEDS: Piperacillin/Tazobactam 3.375 GM in Sodium Chloride 0.9% 100 ML IVPB SCH ×4 (00:28→18:19)
[2018-08-20] MEDS: Acetaminophen 325 MG TAB PO PRN ×2 (00:30→20:00)
[2018-08-20 05:07] LABS: Anion Gap 13 mmol/L (10-20); BUN (Urea Nitrogen) 21 mg/dL (9.8-20.1); Calc. Creatinine Clearance 79 mL/min (70-130); Calcium 8.3 mg/dL (7.8-10.44); Carbon Dioxide 25 mmol/L (23-31); Chloride 97 mmol/L (98-107); Estimated GFR-MDRD 45; Glucose 93 mg/dL (80-115); Potassium 4.5 mmol/L (3.5-5.1); Sodium 130 mmol/L (136-145)
[2018-08-20] MEDS: Sodium Chloride 0.9% 1,000 ML IV SCH ×3 (05:38→17:30)
[2018-08-20 05:46] LABS: Anisocytosis SLIGHT = 6-15 cells (100X) (0-5/hpf); Band 1 % (5-11); Eosinophils 5 % (0-10); Hemoglobin 7.2 g/dL (12.0-16.0); Hypochromia SLIGHT = 6-15 cells (100X) (0-5/hpf); Lymphocytes 3 % (21-51); MDiff Complete? YES; Macrocytosis SLIGHT = 6-15 cells (100X) (0-5/hpf); Mean Corpuscular HGB CONC 33.7 g/dL (32.0-36.0); Mean Corpuscular Hemoglobin 36.4 pg (27.0-31.0); Mean Platelet Volume 9.7 fL (7.4-10.4); Monocytes 6 % (0-10); Neutrophil 85 % (42-75); PLT Morphology Comment Appears Decreased; Platelet Count 73 thou/uL (130-400); Red Blood Cell (RBC) Count 1.97 mill/uL (4.20-5.40); White Blood Cell (WBC) Count 1.2 thou/uL (4.8-10.8)
[2018-08-20] MEDS: Mometasone/Formoterol 120 PUFF INHALER INH SCH ×2 (06:37→19:22)
--- NOTE | 2018-08-20 07:58 | PDOC.FM ---
- Subjective Subjective: Patient in pain this AM 2/2 radiation dermatitis/cellulitis. No significant overnight events. Patient states she also had rectal bleeding yesterday. Since chemo, she has had very infrequent rectal bleeding. She denies chest pain, shortness of breath, N/V. - Objective MAR Reviewed: Yes Vital Signs & Weight: Vital Signs (12 hours) Pulse Resp Pulse Ox 08/20/18 06:37 106 H 20 95 08/20/18 06:34 106 H 20 95 Weight Weight 106.095 kg I&O: 08/18/18 08/19/18 08/20/18 06:59 06:59 06:59 Intake Total 1245 Output Total 375 Balance 870 Result Diagrams: 08/20/18 04:22 08/20/18 04:22 EKG Reviewed by me: Yes Radiology Reviewed by me: Yes <Ivette Recinos - Last Filed: 08/20/18 10:42> - Objective Vital Signs & Weight: Vital Signs (12 hours) Temp Pulse Resp BP Pulse Ox 08/20/18 09:46 86 18 95 08/20/18 08:00 97.3 F L 97 20 109/66 95 08/20/18 06:37 106 H 20 95 08/20/18 06:34 106 H 20 95 Weight Weight 106.095 kg I&O: 08/19/18 08/20/18 08/21/18 06:59 06:59 06:59 Intake Total 1245 Output Total 375 Balance 870 Result Diagrams: 08/20/18 04:22 08/20/18 04:22 <Chip Francois - Last Filed: 08/20/18 10:53> Phys Exam - Physical Examination Mild distress 2/2 pain HEENT: moist MMs Neck: supple Respiratory: clear to auscultation bilateral Cardiovascular: RRR Gastrointestinal: soft, no distention, positive bowel sounds Musculoskeletal: pulses present Neurological: moves all 4 limbs Painful to move lower extremities 2/2 dermatitis/cellulitis Deviation from normal: Diffuse dermatitis of perineum, groin, and suprapubic region -: Excoriations with some purulent drainage in panus and groin <Ivette Recinos - Last Filed: 08/20/18 10:42> Dx/Plan (1) Cellulitis Code(s): L03.90 - CELLULITIS, UNSPECIFIED Status: Acute (2) Hyponatremia Code(s): E87.1 - HYPO-OSMOLALITY AND HYPONATREMIA Status: Acute (3) Leukopenia Code(s): D72.819 - DECREASED WHITE BLOOD CELL COUNT, UNSPECIFIED Status: Acute (4) Neutropenia Code(s): D70.9 - NEUTROPENIA, UNSPECIFIED Status: Acute (5) Acute and chronic respiratory failure with hypoxia Code(s): J96.21 - ACUTE AND CHRONIC RESPIRATORY FAILURE WITH HYPOXIA Status: Acute (6) Physical deconditioning Code(s): R53.81 - OTHER MALAISE Status: Chronic (7) Anal carcinoma Code(s): C21.0 - MALIGNANT NEOPLASM OF ANUS, UNSPECIFIED Status: Chronic (8) DMII (diabetes mellitus, type 2) Status: Chronic (9) HTN (hypertension) Code(s): I10 - ESSENTIAL (PRIMARY) HYPERTENSION Status: Chronic - Plan Plan: Radiation dermatitis w/ superimposed cellulitis - Grade 2 dermatitis extending from panus to perineum - continue vanc, zosyn (08/19) - NS @ 140 mL/hr - blood and wound cx pending - Morphine PRN, ultram SKIP - Consult wound care - procalcitonin 0.08 - Heme/onc consulted; appreciate recs - Will work on transfer to onc floor per heme/onc recs Proctitis - 2/2 radiation - aware, will monitor H&H - Bowel regimen in place MARS, improved - Cr 1.4 --> 1.22 - IVF with NS Hyponatremia - Na 127 --> 130 - continue IVF with NS - diagnosed with hypervolemic hyponatremia at last visit, can consider fluid restriction/lasix after correction of MARS - serum osm 275 Leuckopenia with left shift, neutropenia - WBC: 1.5 --> 1.2, ANC 1500, Neutrophils 98% - Abx treatment as above - Wound, blood cx pending - Continue neutropenic precautions Hx of DM - aware, continue home meds - mild SS, ACHS accuchecks Hx of MARLENE - on bipap at home, will continue here Hx of Sarcoidosis - aware, continue home meds Hx of atrial fibrillation - aware, continue home meds CODE: FULL Dispo: Stable. Heme/onc consulted. Appreciate recs. Continue treatment with antibiotics. Pending would and blood cultures. Pain management. <Ivette Recinos - Last Filed: 08/20/18 10:42> (1) Cellulitis Code(s): L03.90 - CELLULITIS, UNSPECIFIED Status: Acute (2) Afib Code(s): I48.91 - UNSPECIFIED ATRIAL FIBRILLATION Status: Chronic (3) Anal carcinoma Code(s): C21.0 - MALIGNANT NEOPLASM OF ANUS, UNSPECIFIED Status: Chronic (4) DMII (diabetes mellitus, type 2) Status: Chronic (5) HTN (hypertension) Code(s): I10 - ESSENTIAL (PRIMARY) HYPERTENSION Status: Chronic (6) MARLENE (obstructive sleep apnea) Code(s): G47.33 - OBSTRUCTIVE SLEEP APNEA (ADULT) (PEDIATRIC) Status: Chronic (7) Pulmonary HTN Code(s): I27.20 - PULMONARY HYPERTENSION, UNSPECIFIED Status: Chronic (8) Sarcoidosis Code(s): D86.9 - SARCOIDOSIS, UNSPECIFIED Status: Chronic (9) Proctitis, radiation Code(s): K62.7 - RADIATION PROCTITIS Status: Acute (10) Hyponatremia Code(s): E87.1 - HYPO-OSMOLALITY AND HYPONATREMIA Status: Acute (11) Leukopenia Code(s): D72.819 - DECREASED WHITE BLOOD CELL COUNT, UNSPECIFIED Status: Acute (12) Neutropenia Code(s): D70.9 - NEUTROPENIA, UNSPECIFIED Status: Acute <Chip Francois - Last Filed: 08/20/18 10:53> Attending Addendum - Attending Addendum Date/Time: 08/20/18 1050 I personally evaluated the patient and discussed the management with Dr. Recinos. I agree with the History, Examination, Assessment and Plan documented above with any addition or exceptions noted below. Patient here with presumed cellulitis of the inguinal and genital area 2/2 chronic skin breakdown in association with radiation induced injury. She also had some rectal bleeding that was increased which led to her presentation. She apparently has a history of radiation proctitis associated with her treatment for lower GI tract malignancy. She also is in a fair amount of pain. Wound care consulted. Continue broad spectrum abx and await culture results. Will add Nystatin powder to her regimen which may help with some of the maceration of the wounded area. She will be transfused today in association with Onc recs. Afebrile. Continue to trend blood counts. Pain control as needed. Will transfer patient to Oncology unit once bed opens up for more infection precautions. <Chip Francois - Last Filed: 08/20/18 10:53>
[2018-08-20] MEDS: Vancomycin HCl 1.5 GM in Sodium Chloride 0.9% 250 ML 300 ML IVPB SCH ×3 (08:41→22:30)
[2018-08-20] MEDS: Alogliptin 25 MG TAB PO SCH (08:42)
[2018-08-20] MEDS: diphenhydrAMINE 25 MG CAP PO SCH (08:42)
[2018-08-20] MEDS: Escitalopram Oxalate 20 mg Tablet PO SCH (08:43)
[2018-08-20] MEDS: Potassium Chloride 10 MEQ TAB PO SCH (08:43)
[2018-08-20] MEDS: Ferrous Sulfate 325 MG TAB PO SCH ×2 (08:43→17:29)
[2018-08-20] MEDS: Carvedilol 3.125 MG TAB PO SCH ×2 (08:43→20:00)
[2018-08-20] MEDS: Morphine 2 MG/ML SYRINGE SLOW IVP PRN ×4 (08:53→20:03)
[2018-08-20] MEDS: Sildenafil Citrate 20 MG TAB PO SCH ×4 (11:50→22:45)
--- NOTE | 2018-08-20 20:48 | CON ---
REASON FOR CONSULTATION: Squamous cell carcinoma of the rectum, pancytopenia. HISTORY OF PRESENT ILLNESS: This is a 62-year-old female, who was recently diagnosed squam ous cell carcinoma of the anus in 05/2018. She was started on concurrent chemo and radiation therapy . Chemotherapy consisted of mitomycin C and 5-FU. The last dose of chemotherapy was on 08/15/2018 a nd consisted of 80 mg of mitomycin C alone. At that time, her WBC count was 2300 with hemoglobin of 8 and platelet count of 123,000. The patient has been having discomfort in the perineum and perianal area. This became worse and she was hospitalized with rectal and perianal bleeding and pain. The p atient was found to be severely leukopenic and anemic and has been started on broad spectrum antibiot ics. At the present time, she is feeling better. She has been afebrile in the hospital. PHYSICAL EXAMINATION VITAL SIGNS: Temperature 96, respirations 18, blood pressure is 98/61. HEENT: Unremarkable. CHEST: Clear to percussion and auscultation. HEART: Regular rhythm. S1 and S2. ABDOMEN: Full, soft. Perineal and perianal area shows erythema, excoriation and discharge. LABORATORY DATA: CBC shows WBC 1200, hemoglobin 7.2 and a platelet count of 85,000. Differential sh ows 85% neutrophils and 3% lymphocytes. Chemistry profile: Sodium 130, potassium 4.5, creatinine 1. 22. Alkaline phosphatase 192, albumin 3. Blood culture is negative. His urine culture negative at 48 hours. ASSESSMENT AND RECOMMENDATIONS: This patient has a radiation-induced cellulitis and dermatitis resul ting from concurrent chemo and radiation therapy. She is chronically neutropenic, made worse by radi ation and chemotherapy. Chronic neutropenia is likely related to sarcoidosis. She should be continu ed on broad spectrum antibiotics coverage, currently vancomycin and piperacillin-tazobactam. There i s blood component support. She should receive RBC transfusion to maintain her hemoglobin around 8 or 9 grams. Thanks very much for asking us to participate in this patient's care.
[2018-08-20] MEDS: Nystatin Powder 15 GM BOT TOP SCH (21:00)
[2018-08-20] MEDS: Rivaroxaban 10 MG TAB PO SCH (22:26)
[2018-08-20] MEDS: Loperamide HCl 2 MG CAP PO PRN (22:45)
[2018-08-21] MEDS: Piperacillin/Tazobactam 3.375 GM in Sodium Chloride 0.9% 100 ML IVPB SCH ×4 (00:45→17:06)
[2018-08-21] MEDS: Loperamide HCl 2 MG CAP PO PRN ×3 (01:20→17:06)
[2018-08-21] MEDS: Morphine 2 MG/ML SYRINGE SLOW IVP PRN ×5 (01:20→19:35)
[2018-08-21] MEDS: Sodium Chloride 0.9% 1,000 ML IV SCH ×4 (02:41→21:49)
[2018-08-21] MEDS: Diphenoxylate HCl/Atropine Tablet PO SCH ×2 (03:13→03:50)
[2018-08-21 05:52] LABS: Anisocytosis MODERATE=16-30 cells (100X) (0-5/hpf); Band 16 % (5-11); Eosinophils 1 % (0-10); Hemoglobin 7.9 g/dL (12.0-16.0); Lymphocytes 6 % (21-51); MDiff Complete? YES; Macrocytosis SLIGHT = 6-15 cells (100X) (0-5/hpf); Mean Corpuscular HGB CONC 32.7 g/dL (32.0-36.0); Mean Corpuscular Hemoglobin 35.1 pg (27.0-31.0); Mean Platelet Volume 9.9 fL (7.4-10.4); Monocytes 3 % (0-10); Neutrophil 74 % (42-75); PLT Morphology Comment Appears Decreased; Platelet Count 70 thou/uL (130-400); RBC Distribution Width 22.2 % (11.5-14.5); Red Blood Cell (RBC) Count 2.25 mill/uL (4.20-5.40); White Blood Cell (WBC) Count 1.3 thou/uL (4.8-10.8)
--- NOTE | 2018-08-21 06:21 | PDOC.FM ---
- Subjective Subjective: Still complains of pain at radiation dermatitis site. Had BM last night, feeling weak. Says pain is well controlled and does not desire anything stronger. - Objective MAR Reviewed: Yes Vital Signs & Weight: Vital Signs (12 hours) Temp Pulse Resp BP Pulse Ox 08/20/18 23:58 99.3 F 78 16 104/50 L 99 08/20/18 20:01 99.8 F H 20 08/20/18 20:00 95 08/20/18 19:46 99.5 F 20 95 08/20/18 19:22 99.5 F 116 H 20 122/56 L 95 Weight Weight 106.095 kg Most Recent Monitor Data Heart Rate from ECG 112 NIBP 112/68 I&O: 08/19/18 08/20/18 08/21/18 06:59 06:59 06:59 Intake Total 1245 2380 Output Total 375 1050 Balance 870 1330 Result Diagrams: 08/21/18 04:57 08/21/18 04:57 Phys Exam - Physical Examination Constitutional: NAD Nasal CPAP on HEENT: moist MMs Respiratory: no wheezing, no rales difficult to assess due to CPAP Cardiovascular: RRR, no significant murmur Musculoskeletal: pulses present Psychiatric: normal affect, A&O x 3 Deviation from normal: skin erosion in inguinal creases and underneath pannus. No purulence -: but presence of serous fluid Dx/Plan (1) Dermatitis Code(s): L30.9 - DERMATITIS, UNSPECIFIED Status: Acute (2) Anemia Code(s): D64.9 - ANEMIA, UNSPECIFIED Status: Acute (3) Proctitis, radiation Code(s): K62.7 - RADIATION PROCTITIS Status: Acute (4) Chronic neutropenia Code(s): D70.9 - NEUTROPENIA, UNSPECIFIED Status: Acute (5) Afib Code(s): I48.91 - UNSPECIFIED ATRIAL FIBRILLATION Status: Chronic (6) DMII (diabetes mellitus, type 2) Status: Chronic (7) MARLENE (obstructive sleep apnea) Code(s): G47.33 - OBSTRUCTIVE SLEEP APNEA (ADULT) (PEDIATRIC) Status: Chronic (8) Sarcoidosis Code(s): D86.9 - SARCOIDOSIS, UNSPECIFIED Status: Chronic - Plan Plan: Radiation induced dermatitis with superimposed cellulitis -Area of involvement including pannus and inguinal folds -Pending blood & wound cx, prelim read s. agalactiae, patient is covered -Continue Vanc & Zosyn. Vanc trough tonight at 2200 -Per patient, pain controlled with morphine PRN, continue -Procal of 0.08 -Dr. Rowe following -Will add on diflucan due to moist area. Needs moist-wicking material to prevent fungal infection & further skin breakdown. Will f/u with wound care. 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 Rowe -ANC 1170 Hyponatremia -asx, stable, monitor Hx of DM -aware, continue home meds -mild SS, ACHS accuchecks Hx of MARLENE -on bipap at home, continue here in hospital Hx of Sarcoidosis -MD aware Hx of atrial fibrillation -aware, continue coreg & xarelto MARS, RESOLVED -will continue mIVF DVT ppx: Xarelto Dispo: Stable. Continue broad spectrum IV ABx pending would and blood cultures in addition to pain management. Discussed with Dr. Paiz
[2018-08-21 06:34] LABS: ALT (SGPT) 8 U/L (8-55); AST (SGOT) 17 U/L (5-34); Albumin 2.7 g/dL (3.4-4.8); Alkaline Phosphatase 175 U/L (40-150); Anion Gap 11 mmol/L (10-20); BUN (Urea Nitrogen) 17 mg/dL (9.8-20.1); Bilirubin, Total 1.4 mg/dL (0.2-1.2); Calc. Creatinine Clearance 108 mL/min (70-130); Calcium 8.3 mg/dL (7.8-10.44); Carbon Dioxide 22 mmol/L (23-31); Chloride 101 mmol/L (98-107); Estimated GFR-MDRD 64; Globulin 3.6 g/dL (2.4-3.5); Glucose 89 mg/dL (80-115); Potassium 3.9 mmol/L (3.5-5.1); Protein, Total 6.3 g/dL (6.0-8.3); Sodium 130 mmol/L (136-145)
[2018-08-21] MEDS: Mometasone/Formoterol 120 PUFF INHALER INH SCH ×2 (08:26→18:18)
[2018-08-21] MEDS: Sildenafil Citrate 20 MG TAB PO SCH ×3 (09:14→21:49)
[2018-08-21] MEDS: Alogliptin 25 MG TAB PO SCH (09:14)
[2018-08-21] MEDS: Ferrous Sulfate 325 MG TAB PO SCH ×2 (09:14→16:12)
[2018-08-21] MEDS: diphenhydrAMINE 25 MG CAP PO SCH (09:14)
[2018-08-21] MEDS: Escitalopram Oxalate 20 mg Tablet PO SCH (09:15)
[2018-08-21] MEDS: Potassium Chloride 10 MEQ TAB PO SCH (09:15)
[2018-08-21] MEDS: Carvedilol 3.125 MG TAB PO SCH ×2 (09:15→20:27)
[2018-08-21] MEDS: Nystatin Powder 15 GM BOT TOP SCH ×2 (09:15→20:26)
[2018-08-21 10:34] LABS: Vancomycin, Random 26.2 ug/mL (See Comment)
[2018-08-21] MEDS: Vancomycin HCl 1.5 GM in Sodium Chloride 0.9% 250 ML 300 ML IVPB SCH ×2 (11:37→23:10)
[2018-08-21] MEDS: Fluconazole In NaCl,Iso-Osm 200 MG in Premix Bag 1 BAG IVPB SCH (14:00)
--- NOTE | 2018-08-21 14:40 | ADD-PRG ---
ADDENDUM This is an addendum to the note of Dr. Ibis Eden. Ms. Jiménez is still in some discomfort related to cellulitis and panniculitis of her lower abdomen. She also may have a yeast infection that initiated this event given that she is a type 2 diabetic as well. She is also followed for anal cancer and has been seen in consultation by Dr. Rowe. She i s also neutropenic and has a chronic neutropenia, which may be related to her sarcoidosis. He recomm ended to continue her on current broad spectrum antibiotic coverage. I would suggest several dosages of Diflucan to cover the possibility that the initiating event of her panniculitis and cellulitis wa s yeast infection.
[2018-08-21] MEDS: Diphenoxylate HCl/Atropine Tablet PO PRN (16:18)
[2018-08-21] MEDS: Acetaminophen 325 MG TAB PO PRN (20:23)
[2018-08-21] MEDS: Rivaroxaban 10 MG TAB PO SCH (20:26)
[2018-08-21 22:40] LABS: Vancomycin, Trough 34.9 ug/mL
[2018-08-22] MEDS: Sodium Chloride 0.9% 1,000 ML IV SCH ×4 (00:08→17:45)
[2018-08-22] MEDS: Piperacillin/Tazobactam 3.375 GM in Sodium Chloride 0.9% 100 ML IVPB SCH ×5 (00:19→23:58)
[2018-08-22] MEDS: Morphine 2 MG/ML SYRINGE SLOW IVP PRN ×4 (00:20→18:17)
[2018-08-22] MEDS: Diphenoxylate HCl/Atropine Tablet PO PRN ×3 (02:21→20:35)
[2018-08-22 05:42] LABS: ALT (SGPT) 7 U/L (8-55); AST (SGOT) 18 U/L (5-34); Albumin 2.7 g/dL (3.4-4.8); Alkaline Phosphatase 163 U/L (40-150); Anion Gap 11 mmol/L (10-20); BUN (Urea Nitrogen) 11 mg/dL (9.8-20.1); Bilirubin, Total 0.8 mg/dL (0.2-1.2); Calc. Creatinine Clearance 119 mL/min (70-130); Calcium 8.7 mg/dL (7.8-10.44); Carbon Dioxide 20 mmol/L (23-31); Chloride 106 mmol/L (98-107); Estimated GFR-MDRD 71; Globulin 3.8 g/dL (2.4-3.5); Glucose 84 mg/dL (80-115); Potassium 3.8 mmol/L (3.5-5.1); Protein, Total 6.5 g/dL (6.0-8.3); Sodium 133 mmol/L (136-145)
[2018-08-22 06:07] LABS: Anisocytosis SLIGHT = 6-15 cells (100X) (0-5/hpf); Band 6 % (5-11); Eosinophils 2 % (0-10); Hemoglobin 8.7 g/dL (12.0-16.0); Lymphocytes 1 % (21-51); MDiff Complete? YES; Macrocytosis SLIGHT = 6-15 cells (100X) (0-5/hpf); Mean Corpuscular HGB CONC 32.1 g/dL (32.0-36.0); Mean Platelet Volume 9.9 fL (7.4-10.4); Monocytes 23 % (0-10); Neutrophil 68 % (42-75); PLT Morphology Comment Appears Decreased; Platelet Count 75 thou/uL (130-400); RBC Distribution Width 22.6 % (11.5-14.5); Red Blood Cell (RBC) Count 2.57 mill/uL (4.20-5.40); Tear Drops SLIGHT = 2-5 cells (100X) (0-1/hpf); White Blood Cell (WBC) Count 1.3 thou/uL (4.8-10.8)
[2018-08-22] MEDS: Mometasone/Formoterol 120 PUFF INHALER INH SCH ×2 (06:27→20:25)
--- NOTE | 2018-08-22 06:44 | PDOC.FM ---
- Subjective Subjective: Patient experienced urine leakage, had ibarra changed to 18 icelandic which resolved issue. Still experiencing dysuria & urgency. Pain is controlled, able to sleep better. - Objective MAR Reviewed: Yes Vital Signs & Weight: Vital Signs (12 hours) Temp Pulse Resp BP Pulse Ox 08/22/18 06:27 103 H 18 86 L 08/22/18 06:23 103 H 18 86 L 08/22/18 03:52 97.5 F L 08/22/18 00:00 97.8 F 08/21/18 20:00 101.0 F H 110 H 20 146/66 H 95 Weight Admit Weight 106.095 kg Weight 106.095 kg Most Recent Monitor Data Heart Rate from ECG 94 NIBP 95/54 I&O: 08/20/18 08/21/18 08/22/18 06:59 06:59 06:59 Intake Total 1245 2730 4850 Output Total 375 1050 1076 Balance 870 1680 3774 Result Diagrams: 08/22/18 05:04 08/22/18 05:04 Phys Exam - Physical Examination Constitutional: NAD presence of bipap Neurological: non-focal, moves all 4 limbs Psychiatric: normal affect, A&O x 3 Deviation from normal: skin erions under pannus and in inguinal folds, moist, erythematous, tender Dx/Plan (1) Dermatitis Code(s): L30.9 - DERMATITIS, UNSPECIFIED Status: Acute (2) Anemia Code(s): D64.9 - ANEMIA, UNSPECIFIED Status: Acute (3) Proctitis, radiation Code(s): K62.7 - RADIATION PROCTITIS Status: Acute (4) Chronic neutropenia Code(s): D70.9 - NEUTROPENIA, UNSPECIFIED Status: Acute (5) Afib Code(s): I48.91 - UNSPECIFIED ATRIAL FIBRILLATION Status: Chronic (6) DMII (diabetes mellitus, type 2) Status: Chronic (7) MARLENE (obstructive sleep apnea) Code(s): G47.33 - OBSTRUCTIVE SLEEP APNEA (ADULT) (PEDIATRIC) Status: Chronic (8) Sarcoidosis Code(s): D86.9 - SARCOIDOSIS, UNSPECIFIED Status: Chronic - Plan Plan: Radiation induced dermatitis with superimposed cellulitis -Area of involvement including pannus and inguinal folds -wound culture prelim shows s. agalactiae-pending S/S -Last vanc trough supratherapeutic, will hold, rpt trough at 1100 today -Per patient, pain controlled with morphine PRN, consider oral pain meds -Dr. 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 Rowe -ANC 1170 Hyponatremia -asx, stable, monitor Hx of DM -aware, continue home meds -mild SS, ACHS accuchecks Hx of MARLENE -on bipap at home, continue here in hospital Hx of Sarcoidosis -MD aware Hx of atrial fibrillation -aware, continue coreg & xarelto MARS, RESOLVED -will continue mIVF DVT ppx: Xarelto Dispo: Stable. Continue broad spectrum IV ABx pending would and blood cultures in addition to pain management. F/u for heme/onc for any further recs Discussed with Dr. Paiz
[2018-08-22] MEDS: Sildenafil Citrate 20 MG TAB PO SCH ×3 (09:57→20:35)
[2018-08-22] MEDS: diphenhydrAMINE 25 MG CAP PO SCH (09:57)
[2018-08-22] MEDS: Loperamide HCl 2 MG CAP PO PRN (09:57)
[2018-08-22] MEDS: Ferrous Sulfate 325 MG TAB PO SCH ×2 (09:57→16:07)
[2018-08-22] MEDS: Carvedilol 3.125 MG TAB PO SCH ×2 (09:57→20:35)
[2018-08-22] MEDS: Potassium Chloride 10 MEQ TAB PO SCH (09:57)
[2018-08-22] MEDS: Alogliptin 25 MG TAB PO SCH (09:57)
[2018-08-22] MEDS: Escitalopram Oxalate 20 mg Tablet PO SCH (09:57)
[2018-08-22] MEDS: Nystatin Powder 15 GM BOT TOP SCH ×2 (09:58→20:36)
--- NOTE | 2018-08-22 11:12 | PRG ---
DATE OF SERVICE: 08/22/2018 This is an addendum to the note of Dr. Ibis Eden. Ms. Jiménez looks and feels better this morning. She did have a run of fever last night. She is, how ever, on broad spectrum antibiotic coverage. She may be suffering from some bladder spasms and we wi ll address this with medication. Wound Care has placed a fan and dried up her intertriginous areas w hich I think will greatly aid the healing process. For now, we will continue broad spectrum antibiot ic coverage and wound care.
[2018-08-22 11:31] LABS: Vancomycin, Trough 22.6 ug/mL
[2018-08-22] MEDS: Fluconazole In NaCl,Iso-Osm 200 MG in Premix Bag 1 BAG IVPB SCH (13:26)
[2018-08-22] MEDS: Acetaminophen 325 MG TAB PO PRN ×2 (16:07→23:58)
[2018-08-22 19:41] LABS: Anisocytosis SLIGHT = 6-15 cells (100X) (0-5/hpf); Band 8 % (5-11); Eosinophils 2 % (0-10); Hemoglobin 8.7 g/dL (12.0-16.0); Hypochromia SLIGHT = 6-15 cells (100X) (0-5/hpf); Lymphocytes 9 % (21-51); MDiff Complete? YES; Macrocytosis SLIGHT = 6-15 cells (100X) (0-5/hpf); Mean Corpuscular HGB CONC 32.5 g/dL (32.0-36.0); Mean Corpuscular Hemoglobin 34.6 pg (27.0-31.0); Mean Platelet Volume 9.2 fL (7.4-10.4); Monocytes 11 % (0-10); Neutrophil 70 % (42-75); PLT Morphology Comment Appears Decreased; Platelet Count 69 thou/uL (130-400); Poikilocytosis SLIGHT = 6-15 cells (100X) (0-5/hpf); RBC Distribution Width 22.7 % (11.5-14.5); Red Blood Cell (RBC) Count 2.51 mill/uL (4.20-5.40); Toxic Granulation SLIGHT; White Blood Cell (WBC) Count 1.1 thou/uL (4.8-10.8)
[2018-08-22] MEDS: Vancomycin HCl 750 MG in Sodium Chloride 0.9% 250 ML 250 ML IVPB SCH (20:34)
[2018-08-22] MEDS: Rivaroxaban 10 MG TAB PO SCH (20:38)
[2018-08-22] MEDS ORDERED: Vancomycin HCl 750 GM in Sodium Chloride 0.9% 250 ML 250 ML IVPB SCH (21:00)
[2018-08-23] MEDS: Morphine 2 MG/ML SYRINGE SLOW IVP PRN ×4 (02:33→21:40)
[2018-08-23] MEDS: Sodium Chloride 0.9% 1,000 ML IV SCH ×3 (02:45→17:36)
[2018-08-23] MEDS: Piperacillin/Tazobactam 3.375 GM in Sodium Chloride 0.9% 100 ML IVPB SCH ×3 (05:15→17:00)
[2018-08-23] MEDS: Mometasone/Formoterol 120 PUFF INHALER INH SCH ×2 (06:07→20:15)
--- NOTE | 2018-08-23 06:13 | PDOC.FM ---
- Subjective Subjective: Feels better today, was able to tolerate some small snacks yesterday. Denies fevers. Reports control of pain. - Objective MAR Reviewed: Yes Vital Signs & Weight: Vital Signs (12 hours) Temp Pulse Resp BP BP Pulse Ox 08/23/18 02:54 97.7 F 94 16 98/47 L 97 08/22/18 23:58 97.2 F L 89 16 113/56 L 92 L 08/22/18 20:25 112 H 20 95 08/22/18 20:00 98.2 F 112 H 20 113/81 96 Weight Admit Weight 106.095 kg Weight 106.095 kg Most Recent Monitor Data Heart Rate from ECG 94 NIBP 95/54 I&O: 08/21/18 08/22/18 08/23/18 06:59 06:59 06:59 Intake Total 2730 4850 700 Output Total 1050 1076 475 Balance 1680 3774 225 Result Diagrams: 08/23/18 05:50 08/23/18 05:50 Phys Exam - Physical Examination Constitutional: NAD large body habitus HEENT: moist MMs, sclera anicteric Neck: full ROM presence of bipap, difficult to assess at the time Gastrointestinal: soft, non-tender Neurological: non-focal Psychiatric: A&O x 3 Deviation from normal: Mildly improved from yesterday-inguinal rash red, with presence of green-ye -: llow dischage, pain with movement, eroded skin Dx/Plan (1) Dermatitis Code(s): L30.9 - DERMATITIS, UNSPECIFIED Status: Acute (2) Cellulitis Code(s): L03.90 - CELLULITIS, UNSPECIFIED Status: Acute (3) Anemia Code(s): D64.9 - ANEMIA, UNSPECIFIED Status: Acute (4) Proctitis, radiation Code(s): K62.7 - RADIATION PROCTITIS Status: Acute (5) Chronic neutropenia Code(s): D70.9 - NEUTROPENIA, UNSPECIFIED Status: Acute (6) Afib Code(s): I48.91 - UNSPECIFIED ATRIAL FIBRILLATION Status: Chronic (7) DMII (diabetes mellitus, type 2) Status: Chronic (8) MARLENE (obstructive sleep apnea) Code(s): G47.33 - OBSTRUCTIVE SLEEP APNEA (ADULT) (PEDIATRIC) Status: Chronic (9) Sarcoidosis Code(s): D86.9 - SARCOIDOSIS, UNSPECIFIED Status: Chronic - Plan Plan: 62 yo F with SCC anal cancer undergoing radiation here with radiation dermatitis with superimposed cellulitis of inguinal folds, underneath pannus. Radiation induced dermatitis with superimposed cellulitis -Area of involvement including pannus and inguinal folds -Wound cx- S. agalactiae-pending S/S -Continue vanc, zosyn, diflucan -Afebrile >24 hours -Last vanc trough was 22 on 08/23, dose was dec. to 50% (750mg), received last night. Pending vanc trough this AM -Per patient, pain controlled with morphine PRN, consider oral pain meds -Dr. 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 Rowe -ANC 1170 Hyponatremia -asx, stable, monitor Hx of DM -aware, continue home meds -mild SS, ACHS accuchecks Hx of MARLENE -on bipap at home, continue here in hospital Hx of Sarcoidosis -MD aware Hx of atrial fibrillation -aware, continue coreg & xarelto MARS, RESOLVED -will continue mIVF DVT ppx: Xarelto Dispo: Stable. Continue broad spectrum IV Abx. Wound cultures with strep/yeast infections with little CFU. Will touch base with heme/onc for further recs on abx mgmt. Consulted case mgmt for SNF placement to help with wound care. Discussed with Dr. Paiz
[2018-08-23 07:03] LABS: ALT (SGPT) Less than 7 U/L (8-55); AST (SGOT) 13 U/L (5-34); Albumin 2.7 g/dL (3.4-4.8); Alkaline Phosphatase 154 U/L (40-150); Anion Gap 10 mmol/L (10-20); BUN (Urea Nitrogen) 9 mg/dL (9.8-20.1); Bilirubin, Total 0.6 mg/dL (0.2-1.2); Calc. Creatinine Clearance 119 mL/min (70-130); Calcium 8.5 mg/dL (7.8-10.44); Carbon Dioxide 24 mmol/L (23-31); Chloride 108 mmol/L (98-107); Estimated GFR-MDRD 71; Globulin 3.5 g/dL (2.4-3.5); Glucose 85 mg/dL (80-115); Potassium 3.5 mmol/L (3.5-5.1); Protein, Total 6.2 g/dL (6.0-8.3); Sodium 138 mmol/L (136-145)
[2018-08-23 07:33] LABS: Anisocytosis MODERATE=16-30 cells (100X) (0-5/hpf); Band 6 % (5-11); Eosinophils 4 % (0-10); Hemoglobin 8.3 g/dL (12.0-16.0); Lymphocytes 20 % (21-51); MDiff Complete? YES; Macrocytosis SLIGHT = 6-15 cells (100X) (0-5/hpf); Mean Corpuscular HGB CONC 32.7 g/dL (32.0-36.0); Mean Corpuscular Hemoglobin 35.3 pg (27.0-31.0); Mean Platelet Volume 10.1 fL (7.4-10.4); Monocytes 6 % (0-10); Neutrophil 64 % (42-75); Nucleated RBC 2 % (0); PLT Morphology Comment Appears Decreased; Platelet Count 71 thou/uL (130-400); Polychromasia SLIGHT = 2-3 cells (100X) (0-2/hpf); RBC Distribution Width 22.7 % (11.5-14.5); Red Blood Cell (RBC) Count 2.36 mill/uL (4.20-5.40); White Blood Cell (WBC) Count 1.1 thou/uL (4.8-10.8)
[2018-08-23] MEDS: Potassium Chloride 10 MEQ TAB PO SCH (08:03)
[2018-08-23] MEDS: Carvedilol 3.125 MG TAB PO SCH ×2 (08:03→21:44)
[2018-08-23] MEDS: Alogliptin 25 MG TAB PO SCH (08:04)
[2018-08-23] MEDS: diphenhydrAMINE 25 MG CAP PO SCH (08:04)
[2018-08-23] MEDS: Ferrous Sulfate 325 MG TAB PO SCH ×2 (08:04→17:00)
[2018-08-23] MEDS: Escitalopram Oxalate 20 mg Tablet PO SCH (08:04)
[2018-08-23] MEDS: Nystatin Powder 15 GM BOT TOP SCH ×2 (08:13→21:52)
[2018-08-23] MEDS: Sildenafil Citrate 20 MG TAB PO SCH ×3 (08:17→21:44)
[2018-08-23] MEDS: Vancomycin HCl 750 MG in Sodium Chloride 0.9% 250 ML 250 ML IVPB SCH ×2 (08:21→21:43)
[2018-08-23] MEDS: traMADol HCl 50 MG TAB PO PRN (09:27)
--- NOTE | 2018-08-23 10:32 | PQF ---
CLINICAL DOCUMENTATION IMPROVEMENT CLARIFICATION FORM: ICD-10 Updated PLEASE DO AN ADDENDUM TO THE PROGRESS NOTE WITH ANY DOCUMENTATION UPDATES OR ADDITIONS AND CARRY THROUGH TO DC SUMMARY. THANK YOU. DATE: 08/23/18 ATTN: Dr. Ibis Eden/ Dr. Paiz Please exercise your independent, professional judgment in responding to the clarification form. Clinical indicators are provided on the bottom of this form for your review Please check appropriate box(s): Pancytopenia due to: [ x ] Chemotherapy/antineoplastic drugs [ ] Other drug-induced (please specify if known): ___ [ ] Other diagnosis [ ] Unable to determine In addition, please specify: Present on Admission (POA): [ x ] Yes [ ] No [ ] Unable to determine For continuity of documentation, please document condition throughout progress notes and discharge summary. Thank You. CLINICAL INDICATORS - SIGNS / SYMPTOMS / LABS H&P 08/19: BP 137/109 HR 109 RR 19 TEMP 98.6 Pulse OX 96% on 4L O2 WBC 1.5 Hgb 8.1 Plt count 88 Radiation dermatitis w/ superimposed cellulitis MARS Leukopenia with left shift , neutropenia LAB 08/19: RBC 2.34 ONCOLOGY 08/20: WBC 1200, hemoglobin 7.2 Platelet count of 85,000 She is chronically neutropenic, made worse by radiation & chemotherapy. RISKS: H&P: Hx of rectal cancer currently undergoing chemo and radiation. Radiation dermatitis w/ superimposed cellulitis. MARS. Leukopenia w/ left shift, neutropenia Hx of DM, Sarcoidosis. TREATMENT: H&P: Will continue antibiotic coverage with Vanc and Zosyn. Received Leukocyte-RBC's on 08/20 & 08/21 Thank you, Jayshree (This form is maintained as a part of the permanent medical record) 2014 [employer]. All Rights Reserved Jayshree Estrada RN, BSN [email or web address] Office: [phone] [facility]
[2018-08-23] MEDS: Fluconazole In NaCl,Iso-Osm 200 MG in Premix Bag 1 BAG IVPB SCH (13:49)
--- NOTE | 2018-08-23 15:53 | PRG ---
DATE OF SERVICE: 08/23/2018 ADDENDUM: This is an addendum to the note of Dr. Ibis Eden. Ms. Jiménez is much more comfortable and her wounds appeared to be healing well. She is currently at radiotherapy for continued treatment of her anal carcinoma. Job ID: [id number]
[2018-08-23] MEDS: Rivaroxaban 10 MG TAB PO SCH (21:45)
[2018-08-24] MEDS: Piperacillin/Tazobactam 3.375 GM in Sodium Chloride 0.9% 100 ML IVPB SCH ×4 (00:10→17:47)
--- NOTE | 2018-08-24 01:00 | CON ---
DATE OF CONSULTATION: 08/23/2018 REASON FOR CONSULTATION: Intertriginous inflammation following radiation therapy with neutropenia and fever. HISTORY OF PRESENT ILLNESS: 62-year-old patient, who has a history of sarcoidosis, managed in [place] by Dr. 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 The patient had a Cartagena catheter inserted, had another course of radiation therapy and feeling a little better. No headaches, visual symptoms, sore throat, odynophagia, or dysphagia. Some dyspnea. No chest pain. No sputum production. No back pain. No abdominal pain. Little bit constipated. Bowel movements are moderately painful. She has a Cartagena catheter inserted. PAST MEDICAL HISTORY: AFib, sarcoidosis with lung involvement, type 2 diabetes, hypertension, obstructive sleep apnea, recently diagnosed anal cancer, and squamous cell, on radiation therapy. PAST SURGICAL HISTORY: Hysterectomy, , and cholecystectomy. FAMILY HISTORY: Lung cancer. SOCIAL HISTORY: Never smoker. Used to work as a patient care secretary. ALLERGIES: CELECOXIB, CODEINE, NAPROXEN, SULFA DRUGS WITH RASH. PHYSICAL EXAMINATION: VITAL SIGNS: T-max 101, now she is 97.7. Blood pressure 133/63, pulse 92, respirations 18, and O2 sat 96%. GENERAL: Pleasant female, in no acute distress, oriented. The patient has a port in the right subclavian location, which is accessed at this time and then, she has the intertriginous areas of inflammatory change, hyperpigmentation, superficial erosions, maceration in the groin area, in lower abdominal region. She has a Cartagena catheter in place with a little bit of bleeding around those areas. No lymphadenopathy. HEENT: Ocular movements are conjugate. Oral cavity is normal. NECK: Supple. LUNGS: Symmetric air entry. No crackles or wheezing. HEART: S1, S2. Irregular rate and rhythm. Spearfish and pulse are normal. ABDOMEN: Soft, not distended or tender. No bladder distention. No ascites. No organomegaly. EXTREMITIES: She is able to move extremities with limitations imposed by the inflammatory process in the groin region. Cognitive function appears to be normal. LABORATORY DATA: Her white cell count was 1.5 and now is 1.1. Hemoglobin is down to 8.3. MCV is 108. 64% neutrophils, 6% bands, total neutrophil count is about 750. Platelets 88,000. The morphology showed poikilocytosis, anisocytosis, and some macrocytosis. Chemistry: Creatinine 0.81. Liver profile normal except for alkaline phosphatase 154, albumin 2.7, globulin 3.5. Urinalysis with 11-20 wbc's. Vancomycin trough is down to 22. Microbiology with urine culture is Iona albicans and the intertrigo cultures with group B strep and yeast, 1 set of blood cultures with coagulase-negative staph, most likely a contaminant. IMAGING STUDIES: There is a chest CT done on July 05, which shows no pulmonary embolism and loculated right pleural fluid and patchy areas of parenchymal airspace, interstitial infiltrates, and stable mediastinal adenopathy. This is felt to represent her sarcoidosis. Chest x-ray from the beginning of July with no significant interval changes. ASSESSMENT: 1. Sarcoidosis, treated by Dr. Karimi in [place]. 2. Newly diagnosed anal cancer, squamous cell, on radiation therapy with adjuvant chemotherapy, now with neutropenia and severe intertriginous inflammatory change, which is a side effect of the treatment. The patient has been receiving antimicrobial therapy with vancomycin and Zosyn. The patient has some topical therapy as well plus management of her cardiomyopathy and lung disease. The total neutrophil count is within a reasonable range. She is not at high risk for the usual bacterial complications that one sees with severe neutropenia. At this point, I do not have any further modifications to suggest and the treatment in a few days probably should be able to transition to oral antimicrobial therapy with Diflucan and a penicillin. Job ID: [id number]
[2018-08-24] MEDS: Sodium Chloride 0.9% 1,000 ML IV SCH ×3 (04:03→22:59)
--- NOTE | 2018-08-24 05:33 | PDOC.FM ---
- Subjective Subjective: Pt received radiation treatment yesterday. States feeling better today & intertriginous rash has improved. No complaints today. - Objective MAR Reviewed: Yes Vital Signs & Weight: Vital Signs (12 hours) Temp Pulse Resp BP Pulse Ox 08/23/18 22:09 107 H 18 95 08/23/18 20:15 107 H 18 95 08/23/18 20:00 95 08/23/18 19:26 98.0 F 112 H 16 136/60 95 Weight Admit Weight 106.095 kg Weight 106.095 kg Most Recent Monitor Data Heart Rate from ECG 94 NIBP 95/54 I&O: 08/22/18 08/23/18 08/24/18 06:59 06:59 06:59 Intake Total 4850 3190 2500 Output Total 1076 775 250 Balance 3774 6757 2657 Result Diagrams: 08/24/18 05:35 08/24/18 05:35 Phys Exam - Physical Examination Constitutional: NAD HEENT: moist MMs, sclera anicteric Gastrointestinal: soft, non-tender, no distention Neurological: non-focal, moves all 4 limbs Psychiatric: normal affect, A&O x 3 Deviation from normal: rash in intertriginous areas, improved from yesterday. Dx/Plan (1) Dermatitis Code(s): L30.9 - DERMATITIS, UNSPECIFIED Status: Acute (2) Cellulitis Code(s): L03.90 - CELLULITIS, UNSPECIFIED Status: Acute (3) Anemia Code(s): D64.9 - ANEMIA, UNSPECIFIED Status: Acute (4) Proctitis, radiation Code(s): K62.7 - RADIATION PROCTITIS Status: Acute (5) Chronic neutropenia Code(s): D70.9 - NEUTROPENIA, UNSPECIFIED Status: Acute (6) Afib Code(s): I48.91 - UNSPECIFIED ATRIAL FIBRILLATION Status: Chronic (7) DMII (diabetes mellitus, type 2) Status: Chronic (8) MARLENE (obstructive sleep apnea) Code(s): G47.33 - OBSTRUCTIVE SLEEP APNEA (ADULT) (PEDIATRIC) Status: Chronic (9) Sarcoidosis Code(s): D86.9 - SARCOIDOSIS, UNSPECIFIED Status: Chronic - Plan Plan: 62 yo F with SCC anal cancer undergoing radiation here with radiation dermatitis with superimposed cellulitis of inguinal folds, underneath pannus. Radiation induced dermatitis with superimposed cellulitis -Continue vanc, zosyn, diflucan. 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 Rowe -stable Hyponatremia, RESOLVED Hx of DM -aware, continue home meds -mild SS, ACHS accuchecks Hx of MARLENE -on bipap at home, continue here in hospital Hx of Sarcoidosis -MD aware Hx of atrial fibrillation -aware, continue coreg & xarelto MARS, RESOLVED -will continue fluids DVT ppx: Xarelto Dispo: Stable. Resumed radiation treatments. Will consider transition to orals. Pending SNF placement, need to ensure transportation to radiation appts. Discussed with Dr. Paiz
[2018-08-24 06:11] LABS: ALT (SGPT) Less than 7 U/L (8-55); AST (SGOT) 13 U/L (5-34); Albumin 2.7 g/dL (3.4-4.8); Alkaline Phosphatase 160 U/L (40-150); Anion Gap 7 mmol/L (10-20); BUN (Urea Nitrogen) 8 mg/dL (9.8-20.1); Bilirubin, Total 0.6 mg/dL (0.2-1.2); Calc. Creatinine Clearance 112 mL/min (70-130); Calcium 8.5 mg/dL (7.8-10.44); Carbon Dioxide 24 mmol/L (23-31); Chloride 109 mmol/L (98-107); Estimated GFR-MDRD 67; Globulin 3.6 g/dL (2.4-3.5); Glucose 88 mg/dL (80-115); Potassium 3.5 mmol/L (3.5-5.1); Protein, Total 6.3 g/dL (6.0-8.3); Sodium 136 mmol/L (136-145)
[2018-08-24 06:12] LABS: Band 4 % (5-11); Hemoglobin 8.1 g/dL (12.0-16.0); Lymphocytes 10 % (21-51); MDiff Complete? YES; Mean Corpuscular HGB CONC 32.8 g/dL (32.0-36.0); Mean Corpuscular Hemoglobin 35.3 pg (27.0-31.0); Mean Platelet Volume 9.7 fL (7.4-10.4); Monocytes 22 % (0-10); Neutrophil 64 % (42-75); PLT Morphology Comment Appears Decreased; Platelet Count 73 thou/uL (130-400); RBC Distribution Width 22.4 % (11.5-14.5); Red Blood Cell (RBC) Count 2.29 mill/uL (4.20-5.40); White Blood Cell (WBC) Count 1.1 thou/uL (4.8-10.8)
[2018-08-24] MEDS: Mometasone/Formoterol 120 PUFF INHALER INH SCH ×2 (07:15→19:02)
[2018-08-24] MEDS: Potassium Chloride 10 MEQ TAB PO SCH (07:51)
[2018-08-24] MEDS: diphenhydrAMINE 25 MG CAP PO SCH (07:51)
[2018-08-24] MEDS: Escitalopram Oxalate 20 mg Tablet PO SCH (07:51)
[2018-08-24] MEDS: Alogliptin 25 MG TAB PO SCH (07:52)
[2018-08-24] MEDS: Carvedilol 3.125 MG TAB PO SCH ×2 (07:52→21:57)
[2018-08-24] MEDS: Ferrous Sulfate 325 MG TAB PO SCH ×2 (07:52→17:47)
[2018-08-24] MEDS: Morphine 2 MG/ML SYRINGE SLOW IVP PRN (07:53)
[2018-08-24] MEDS: Vancomycin HCl 750 MG in Sodium Chloride 0.9% 250 ML 250 ML IVPB SCH (07:54)
[2018-08-24] MEDS: Nystatin Powder 15 GM BOT TOP SCH ×2 (07:56→21:58)
[2018-08-24 08:34] LABS: Vancomycin, Trough 24.9 ug/mL
[2018-08-24] MEDS: Sildenafil Citrate 20 MG TAB PO SCH ×3 (10:12→21:57)
[2018-08-24] MEDS: Loperamide HCl 2 MG CAP PO PRN (10:20)
--- NOTE | 2018-08-24 13:15 | PRG ---
DATE OF SERVICE: 08/24/2018 ADDENDUM: This is an addendum to the note of Dr. Ibis Eden. Ms. Jiménez is still having some bladder spasm. We will switch her to hyoscyamine, which is less expensive and perhaps more effective. In the event otherwise, she offers no new complaints. Her wound/panniculitis seems to be healing much better now that the moisture has been removed. We will continue to follow. Job ID: [id number]
[2018-08-24] MEDS: Fluconazole In NaCl,Iso-Osm 200 MG in Premix Bag 1 BAG IVPB SCH (18:37)
[2018-08-24] MEDS: AMOXicillin 250 MG CAP PO SCH (21:56)
[2018-08-24] MEDS: Rivaroxaban 10 MG TAB PO SCH (21:57)
[2018-08-24] MEDS: Acetaminophen 325 MG TAB PO PRN (23:09)
[2018-08-24] MEDS: HYDROcodone/Acetaminophen 10/325 mg Tablet PO PRN (23:50)
[2018-08-25] MEDS: Piperacillin/Tazobactam 3.375 GM in Sodium Chloride 0.9% 100 ML IVPB SCH ×3 (00:58→12:35)
[2018-08-25] MEDS: Sodium Chloride 0.9% 1,000 ML IV SCH ×3 (04:31→16:32)
--- NOTE | 2018-08-25 05:30 | PDOC.FM ---
- Subjective Subjective: No acute events overnight. Reports improvement in rash. Radiation today. Feeling SOB but improved after turned the air down. - Objective Vital Signs & Weight: Vital Signs (12 hours) Temp Pulse Resp BP Pulse Ox 08/25/18 04:24 97.4 F L 94 16 130/61 95 08/24/18 23:58 97.4 F L 97 18 111/60 95 08/24/18 20:00 95 08/24/18 19:25 98.7 F 120 H 18 144/67 H 95 08/24/18 19:02 100 20 94 L Weight Admit Weight 106.095 kg Weight 106.095 kg Most Recent Monitor Data Heart Rate from ECG 94 NIBP 95/54 I&O: 08/23/18 08/24/18 08/25/18 06:59 06:59 06:59 Intake Total 3190 2500 2360 Output Total 775 675 600 Balance 2415 1824 1760 Result Diagrams: 08/25/18 06:08 08/25/18 06:08 Phys Exam - Physical Examination Constitutional: NAD HEENT: PERRLA, moist MMs Neck: full ROM Respiratory: no rales, no rhonchi mild end expiratory wheezing Cardiovascular: RRR, no significant murmur Gastrointestinal: soft, non-tender Musculoskeletal: no edema Neurological: non-focal, moves all 4 limbs Psychiatric: normal affect, A&O x 3 Deviation from normal: rash in intertriginous areas. red, emacerated, but healing with presence of -: scar formation Dx/Plan (1) Dermatitis Code(s): L30.9 - DERMATITIS, UNSPECIFIED Status: Acute (2) Cellulitis Code(s): L03.90 - CELLULITIS, UNSPECIFIED Status: Acute (3) Anemia Code(s): D64.9 - ANEMIA, UNSPECIFIED Status: Acute (4) Proctitis, radiation Code(s): K62.7 - RADIATION PROCTITIS Status: Acute (5) Chronic neutropenia Code(s): D70.9 - NEUTROPENIA, UNSPECIFIED Status: Acute (6) Afib Code(s): I48.91 - UNSPECIFIED ATRIAL FIBRILLATION Status: Chronic (7) DMII (diabetes mellitus, type 2) Status: Chronic (8) MARLENE (obstructive sleep apnea) Code(s): G47.33 - OBSTRUCTIVE SLEEP APNEA (ADULT) (PEDIATRIC) Status: Chronic (9) Sarcoidosis Code(s): D86.9 - SARCOIDOSIS, UNSPECIFIED Status: Chronic - Plan Plan: 62 yo F with SCC anal cancer undergoing radiation here with radiation dermatitis with superimposed cellulitis of intertriginous areas. Radiation induced dermatitis with possible superimposed cellulitis -Oral amoxicillin & diflucan -Last fever 08/21 -Branch 10 for pain; tramadol & morphine for breakthrough -Continue fan, nystatin powder & thin sheets to minimize moisture Iona UTI -likely contaminant since <100,000 CFU -however, continue covering with diflucan due to immunosuppressed state -continue nystatin powder -hyosyamine for bladder spasms Chronic neutropenia likely 2/2 sarcoidosis -Likely 2/[address] 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 Resumed radiation treatments. Continue oral abx/antifungal. Pending approval placement at [facility]. Discussed with Dr. Paiz
[2018-08-25] MEDS: Mometasone/Formoterol 120 PUFF INHALER INH SCH ×2 (06:53→18:50)
[2018-08-25 06:54] LABS: Anisocytosis SLIGHT = 6-15 cells (100X) (0-5/hpf); Band 8 % (5-11); Eosinophils 4 % (0-10); Hypochromia SLIGHT = 6-15 cells (100X) (0-5/hpf); Lymphocytes 4 % (21-51); MDiff Complete? YES; Mean Corpuscular HGB CONC 31.8 g/dL (32.0-36.0); Mean Corpuscular Hemoglobin 34.5 pg (27.0-31.0); Monocytes 4 % (0-10); Neutrophil 80 % (42-75); PLT Morphology Comment Appears Decreased; Platelet Count 56 thou/uL (130-400); RBC Distribution Width 21.9 % (11.5-14.5); Red Blood Cell (RBC) Count 2.31 mill/uL (4.20-5.40); White Blood Cell (WBC) Count 1.1 thou/uL (4.8-10.8)
[2018-08-25 06:56] LABS: ALT (SGPT) Less than 7 U/L (8-55); AST (SGOT) 16 U/L (5-34); Albumin 2.6 g/dL (3.4-4.8); Alkaline Phosphatase 160 U/L (40-150); Anion Gap 9 mmol/L (10-20); BUN (Urea Nitrogen) 8 mg/dL (9.8-20.1); Bilirubin, Total 0.5 mg/dL (0.2-1.2); Calc. Creatinine Clearance 103 mL/min (70-130); Calcium 8.5 mg/dL (7.8-10.44); Carbon Dioxide 21 mmol/L (23-31); Chloride 111 mmol/L (98-107); Estimated GFR-MDRD 60; Globulin 3.4 g/dL (2.4-3.5); Glucose 86 mg/dL (80-115); Potassium 3.5 mmol/L (3.5-5.1); Sodium 137 mmol/L (136-145)
[2018-08-25] MEDS: Escitalopram Oxalate 20 mg Tablet PO SCH (07:40)
[2018-08-25] MEDS: Ferrous Sulfate 325 MG TAB PO SCH ×2 (07:40→16:20)
[2018-08-25] MEDS: Potassium Chloride 10 MEQ TAB PO SCH (07:43)
[2018-08-25] MEDS: diphenhydrAMINE 25 MG CAP PO SCH (07:43)
[2018-08-25] MEDS: Carvedilol 3.125 MG TAB PO SCH ×2 (07:44→22:29)
[2018-08-25] MEDS: Alogliptin 25 MG TAB PO SCH (07:45)
[2018-08-25] MEDS: Sildenafil Citrate 20 MG TAB PO SCH ×3 (07:47→22:29)
[2018-08-25] MEDS: AMOXicillin 250 MG CAP PO SCH ×2 (07:48→22:31)
[2018-08-25] MEDS: Nystatin Powder 15 GM BOT TOP SCH ×2 (07:48→22:31)
[2018-08-25] MEDS ORDERED: Fluconazole 100 MG TAB PO SCH (09:00)
--- NOTE | 2018-08-25 12:25 | PRG ---
DATE OF SERVICE: ADDENDUM: To the note of Dr. Ibis Eden. Ms. Jiménez is resting quietly in bed, in no distress. Her wounds continue to heal well. We are currently awaiting SNF bed placement. Job ID: [id number]
[2018-08-25] MEDS: traMADol HCl 50 MG TAB PO PRN (12:31)
[2018-08-25] MEDS: Fluconazole 100 MG TAB PO SCH (12:34)
[2018-08-25] MEDS: HYDROcodone/Acetaminophen 10/325 mg Tablet PO PRN (22:28)
[2018-08-25] MEDS: Rivaroxaban 10 MG TAB PO SCH (22:29)
[2018-08-25] MEDS: Loperamide HCl 2 MG CAP PO PRN (22:39)
[2018-08-26] MEDS: Sodium Chloride 0.9% 1,000 ML IV SCH ×3 (03:42→19:09)
--- NOTE | 2018-08-26 05:38 | PDOC.FM ---
- Subjective Subjective: no acute events overnight. afebrile. no complaints. rash improving. - Objective MAR Reviewed: Yes Vital Signs & Weight: Vital Signs (12 hours) Temp Pulse Resp BP Pulse Ox 08/25/18 20:00 98 08/25/18 19:44 98.2 F 96 16 131/61 98 08/25/18 18:47 100 20 100 Weight Admit Weight 106.095 kg Weight 106.095 kg Most Recent Monitor Data Heart Rate from ECG 94 NIBP 95/54 I&O: 08/24/18 08/25/18 08/26/18 06:59 06:59 06:59 Intake Total 2500 2360 1680 Output Total 675 600 650 Balance 1825 1760 1030 Result Diagrams: 08/25/18 06:08 08/25/18 06:08 <Ibis Eden - Last Filed: 08/26/18 07:11> - Objective Vital Signs & Weight: Vital Signs (12 hours) Temp Pulse Resp BP Pulse Ox 08/26/18 11:21 97.5 F L 99 16 124/59 L 96 08/26/18 10:08 84 18 98 08/26/18 08:00 97.5 F L 92 16 120/55 L 96 08/26/18 06:43 102 H 20 98 08/26/18 06:40 102 H 18 98 Weight Admit Weight 106.095 kg Weight 106.095 kg Most Recent Monitor Data Heart Rate from ECG 94 NIBP 95/54 I&O: 08/25/18 08/26/18 08/27/18 06:59 06:59 06:59 Intake Total 2360 1680 240 Output Total 600 650 Balance 1760 1030 240 Result Diagrams: 08/26/18 06:53 08/26/18 06:53 <Belen Santiago - Last Filed: 08/26/18 13:56> Phys Exam - Physical Examination Constitutional: NAD HEENT: PERRLA, moist MMs, sclera anicteric presence of bipap Neck: full ROM Respiratory: no wheezing, no rales, no rhonchi, clear to auscultation bilateral Cardiovascular: RRR, no significant murmur Gastrointestinal: soft, non-tender, no distention Musculoskeletal: no edema, pulses present Neurological: moves all 4 limbs Psychiatric: normal affect, A&O x 3 Deviation from normal: intertriginous rash, no fluid or purulence. no emacerated skin <EdenIbis - Last Filed: 08/26/18 07:11> Dx/Plan (1) Dermatitis Code(s): L30.9 - DERMATITIS, UNSPECIFIED Status: Acute (2) Cellulitis Code(s): L03.90 - CELLULITIS, UNSPECIFIED Status: Acute (3) Anemia Code(s): D64.9 - ANEMIA, UNSPECIFIED Status: Acute (4) Chronic neutropenia Code(s): D70.9 - NEUTROPENIA, UNSPECIFIED Status: Chronic (5) Proctitis, radiation Code(s): K62.7 - RADIATION PROCTITIS Status: Acute (6) Afib Code(s): I48.91 - UNSPECIFIED ATRIAL FIBRILLATION Status: Chronic (7) DMII (diabetes mellitus, type 2) Status: Chronic (8) MARLENE (obstructive sleep apnea) Code(s): G47.33 - OBSTRUCTIVE SLEEP APNEA (ADULT) (PEDIATRIC) Status: Chronic (9) Sarcoidosis Code(s): D86.9 - SARCOIDOSIS, UNSPECIFIED Status: Chronic (10) Neutropenic fever Code(s): D70.9 - NEUTROPENIA, UNSPECIFIED; R50.81 - FEVER PRESENTING WITH CONDITIONS CLASSIFIED ELSEWHERE Status: Resolved (11) 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 - MALIGNANT NEOPLASM OF ANUS, UNSPECIFIED Status: Chronic - Plan Plan: 62 yo F with SCC anal cancer undergoing radiation here with radiation dermatitis with superimposed cellulitis of intertriginous areas. Radiation induced dermatitis & possible superimposed cellulitis -Cultures grew strep & genaro -Continue oral amoxicillin & diflucan -Last fever 08/21 -[place]ra 10/325 for pain; tramadol & morphine for breakthrough -Continue fan, nystatin powder & thin sheets to minimize moisture Chronic neutropenia likely 2/2 sarcoidosis -Likely 2/[address] 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 Jae Anal SCC -Followed by Dr. Kumari -Resumed radiation treatments Bladder spasm -Continue hyocyamine & mirbetriq Hx of DM -aware, glucoses controlled Hx of MARLENE -on bipap at home, continue here in hospital Hx of Sarcoidosis -MD aware Hx of atrial fibrillation -aware, continue coreg & xarelto MARS, RESOLVED -will continue fluids Hyponatremia, RESOLVED Neutropenic fever, RESOLVED DVT ppx: Xarelto Dispo: Stable. Resumed radiation treatments. Continue oral abx/antifungal. Pending insurance approval and [facility] bed placement. Discussed with Dr. Santiago <Ibis Eden - Last Filed: 08/26/18 07:11> Attending Addendum - Attending Addendum Date/Time: 08/26/18 2015 I personally evaluated the patient and discussed the management with Dr. Eden. I agree with the History, Examination, Assessment and Plan documented above with any addition or exceptions noted below. Pt is doing well, still very weak. We encouraged her to get up out of bed as tolerated. Waiting on insurance approval to move to [facility]. <Belen Santiago - Last Filed: 08/26/18 13:56>
[2018-08-26] MEDS: Mometasone/Formoterol 120 PUFF INHALER INH SCH ×2 (06:40→18:50)
[2018-08-26 07:13] LABS: Hemoglobin 8.4 g/dL (12.0-16.0); Red Blood Cell (RBC) Count 2.39 mill/uL (4.20-5.40); White Blood Cell (WBC) Count 1.3 thou/uL (4.8-10.8)
[2018-08-26 07:30] LABS: ALT (SGPT) 8 U/L (8-55); AST (SGOT) 17 U/L (5-34); Albumin 2.6 g/dL (3.4-4.8); Alkaline Phosphatase 167 U/L (40-150); Anion Gap 6 mmol/L (10-20); BUN (Urea Nitrogen) 9 mg/dL (9.8-20.1); Bilirubin, Total 0.5 mg/dL (0.2-1.2); Calc. Creatinine Clearance 103 mL/min (70-130); Calcium 8.7 mg/dL (7.8-10.44); Carbon Dioxide 24 mmol/L (23-31); Chloride 112 mmol/L (98-107); Estimated GFR-MDRD 60; Globulin 3.8 g/dL (2.4-3.5); Glucose 94 mg/dL (80-115); Potassium 3.6 mmol/L (3.5-5.1); Protein, Total 6.4 g/dL (6.0-8.3); Sodium 138 mmol/L (136-145)
[2018-08-26 07:38] LABS: Anisocytosis MODERATE=16-30 cells (100X) (0-5/hpf); Hypochromia MODERATE=16-30 cells (100X) (0-5/hpf); Large Platelets SLIGHT; Lymphocytes 4 % (21-51); MDiff Complete? YES; Mean Platelet Volume 10.4 fL (7.4-10.4); Microcytosis MODERATE=15-30 cells (100X) (0-5/hpf); Monocytes 18 % (0-10); Neutrophil 74 % (42-75); PLT Morphology Comment Appears Decreased; Platelet Count 65 thou/uL (130-400); Polychromasia SLIGHT = 2-3 cells (100X) (0-2/hpf); Reactive Lymphocytes 4 % (0-10)
[2018-08-26] MEDS: Escitalopram Oxalate 20 mg Tablet PO SCH (07:58)
[2018-08-26] MEDS: Potassium Chloride 10 MEQ TAB PO SCH (07:58)
[2018-08-26] MEDS: Carvedilol 3.125 MG TAB PO SCH ×2 (07:59→20:07)
[2018-08-26] MEDS: Alogliptin 25 MG TAB PO SCH (07:59)
[2018-08-26] MEDS: diphenhydrAMINE 25 MG CAP PO SCH (07:59)
[2018-08-26] MEDS: Ferrous Sulfate 325 MG TAB PO SCH ×2 (08:00→15:40)
[2018-08-26] MEDS: AMOXicillin 250 MG CAP PO SCH ×2 (08:01→20:06)
[2018-08-26] MEDS: Nystatin Powder 15 GM BOT TOP SCH ×2 (08:02→22:18)
[2018-08-26] MEDS: Sildenafil Citrate 20 MG TAB PO SCH ×3 (08:02→20:07)
--- NOTE | 2018-08-26 14:27 | EKG ---
Test Reason : AFIB Blood Pressure : / mmHG Vent. Rate : 109 BPM Atrial Rate : 150 BPM P-R Int : 000 ms QRS Dur : 076 ms QT Int : 266 ms P-R-T Axes : 000 108 -42 degrees QTc Int : 358 ms Atrial fibrillation with rapid ventricular response Rightward axis Nonspecific ST and T wave abnormality , probably digitalis effect Abnormal ECG Confirmed by LIV RUSH MD ([id number]), design editor RADHA FERRARO ([id number]) on 08/26/2018 2:27:02 PM Referred By: Confirmed By:LIV RUSH MD
[2018-08-26] MEDS: Fluconazole 100 MG TAB PO SCH (15:40)
[2018-08-26] MEDS ORDERED: Furosemide 40 MG/4 ML VIAL SLOW IVP SCH ×2 (16:15→22:00)
[2018-08-26] MEDS: Potassium Chloride 20 MEQ TAB PO SCH (16:47)
--- NOTE | 2018-08-26 16:49 | RAD ---
SINGLE VIEW OF THE CHEST: 08/26/18 COMPARISON: 07/27/18 HISTORY: Shortness of breath and fluid overload. FINDINGS: Single view of the chest shows an enlarged cardiomediastinal silhouette. The Mediport is unchanged in position. There is a moderate right pleural effusion with adjacent atelectasis. IMPRESSION: Moderate right pleural effusion with adjacent atelectasis. POS: [facility]
[2018-08-26] MEDS: Rivaroxaban 10 MG TAB PO SCH (20:07)
[2018-08-26] MEDS: traMADol HCl 50 MG TAB PO PRN (23:09)
[2018-08-27 07:22] LABS: ALT (SGPT) Less than 7 U/L (8-55); AST (SGOT) 14 U/L (5-34); Albumin 2.6 g/dL (3.4-4.8); Alkaline Phosphatase 162 U/L (40-150); Anion Gap 10 mmol/L (10-20); BUN (Urea Nitrogen) 9 mg/dL (9.8-20.1); Bilirubin, Total 0.6 mg/dL (0.2-1.2); Calc. Creatinine Clearance 107 mL/min (70-130); Calcium 8.8 mg/dL (7.8-10.44); Carbon Dioxide 21 mmol/L (23-31); Chloride 110 mmol/L (98-107); Estimated GFR-MDRD 51; Globulin 3.7 g/dL (2.4-3.5); Glucose 85 mg/dL (80-115); Potassium 3.5 mmol/L (3.5-5.1); Protein, Total 6.3 g/dL (6.0-8.3); Sodium 137 mmol/L (136-145)
[2018-08-27 07:39] LABS: Hemoglobin 7.9 g/dL (12.0-16.0); Mean Corpuscular HGB CONC 32.3 g/dL (32.0-36.0); Mean Corpuscular Hemoglobin 35.2 pg (27.0-31.0); Mean Platelet Volume 11.3 fL (7.4-10.4); Platelet Count 63 thou/uL (130-400); Red Blood Cell (RBC) Count 2.26 mill/uL (4.20-5.40); White Blood Cell (WBC) Count 1.1 thou/uL (4.8-10.8)
[2018-08-27 07:43] LABS: Anisocytosis SLIGHT = 6-15 cells (100X) (0-5/hpf); Hypochromia SLIGHT = 6-15 cells (100X) (0-5/hpf); Lymphocytes 4 % (21-51); MDiff Complete? YES; Macrocytosis SLIGHT = 6-15 cells (100X) (0-5/hpf); Microcytosis SLIGHT = 6-15 cells (100X) (0-5/hpf); Monocytes 24 % (0-10); Neutrophil 72 % (42-75); Polychromasia SLIGHT = 2-3 cells (100X) (0-2/hpf)
--- NOTE | 2018-08-27 08:01 | RAD ---
AP VIEW CHEST: INDICATIONS: Shortness of breath. COMPARISON: 08/26/2018 FINDINGS/IMPRESSION: Right-sided pleural parenchymal opacity is unchanged. Right IJ chest wall port is similar appearing. Cardiomegaly and pulmonary vascular congestion persist. No pneumothorax is evident. POS: [facility]
[2018-08-27] MEDS: AMOXicillin 250 MG CAP PO SCH ×2 (08:57→21:04)
[2018-08-27] MEDS: Furosemide 40 MG/4 ML VIAL SLOW IVP SCH (08:58)
[2018-08-27] MEDS: Sildenafil Citrate 20 MG TAB PO SCH ×3 (08:58→21:05)
[2018-08-27] MEDS: Escitalopram Oxalate 20 mg Tablet PO SCH (08:58)
[2018-08-27] MEDS: diphenhydrAMINE 25 MG CAP PO SCH (08:58)
[2018-08-27] MEDS: Potassium Chloride 20 MEQ TAB PO SCH ×2 (08:58→18:53)
[2018-08-27] MEDS: Ferrous Sulfate 325 MG TAB PO SCH ×2 (08:58→18:53)
[2018-08-27] MEDS: Alogliptin 25 MG TAB PO SCH (08:58)
[2018-08-27] MEDS: Carvedilol 3.125 MG TAB PO SCH ×2 (08:58→21:04)
[2018-08-27] MEDS: Mometasone/Formoterol 120 PUFF INHALER INH SCH ×2 (09:00→20:00)
[2018-08-27] MEDS: Nystatin Powder 15 GM BOT TOP SCH ×2 (09:01→21:05)
[2018-08-27] MEDS: Fluconazole 100 MG TAB PO SCH (13:05)
[2018-08-27] MEDS: Diphenoxylate HCl/Atropine Tablet PO PRN ×2 (13:05→21:03)
[2018-08-27] MEDS: Loperamide HCl 2 MG CAP PO PRN (14:47)
[2018-08-27] MEDS: HYDROcodone/Acetaminophen 10/325 mg Tablet PO PRN (21:03)
[2018-08-27] MEDS: Rivaroxaban 10 MG TAB PO SCH (21:05)
[2018-08-28 04:50] LABS: ALT (SGPT) 8 U/L (8-55); AST (SGOT) 19 U/L (5-34); Albumin 2.5 g/dL (3.4-4.8); Alkaline Phosphatase 170 U/L (40-150); Anion Gap 7 mmol/L (10-20); BUN (Urea Nitrogen) 9 mg/dL (9.8-20.1); Bilirubin, Total 0.7 mg/dL (0.2-1.2); Calc. Creatinine Clearance 106 mL/min (70-130); Calcium 8.9 mg/dL (7.8-10.44); Carbon Dioxide 24 mmol/L (23-31); Chloride 109 mmol/L (98-107); Estimated GFR-MDRD 51; Globulin 3.8 g/dL (2.4-3.5); Glucose 86 mg/dL (80-115); Potassium 3.5 mmol/L (3.5-5.1); Protein, Total 6.3 g/dL (6.0-8.3); Sodium 136 mmol/L (136-145)
[2018-08-28 04:58] LABS: Band 4 % (5-11); Hemoglobin 8.1 g/dL (12.0-16.0); Lymphocytes 18 % (21-51); MDiff Complete? YES; Mean Corpuscular HGB CONC 33.3 g/dL (32.0-36.0); Mean Corpuscular Hemoglobin 35.6 pg (27.0-31.0); Mean Platelet Volume 10.7 fL (7.4-10.4); Monocytes 24 % (0-10); Neutrophil 54 % (42-75); PLT Morphology Comment Appears Decreased; Platelet Count 54 thou/uL (130-400); RBC Distribution Width 21.8 % (11.5-14.5); Red Blood Cell (RBC) Count 2.27 mill/uL (4.20-5.40); White Blood Cell (WBC) Count 1.1 thou/uL (4.8-10.8)
[2018-08-28] MEDS: Mometasone/Formoterol 120 PUFF INHALER INH SCH ×2 (06:13→18:18)
--- NOTE | 2018-08-28 07:49 | PRG ---
DATE OF SERVICE: 08/25/2018 SUBJECTIVE: Feeling better with less pain in the intertriginous area of the groin and perineal region. No respiratory symptoms. No cough. No abdominal pain. OBJECTIVE: VITAL SIGNS: Temperature max 98.2, blood pressure is within normal limits, and slightly tachycardic intermittently. GENERAL: Awake, alert, and oriented. LUNGS: Clear. HEART: S1 and S2. Regular rate. ABDOMEN: Soft and there is a marked improvement in the intertriginous maceration and eruption in the groin and perineal region. A lot of hyperpigmentation and some hyperkeratosis noted. Some fissuring is noted as well. NEURO: Nonfocal. LABORATORY DATA: White cell count 1.1, and total neutrophil counts and chemistry with unremarkable findings except for elevation in alkaline phosphatase and hypoalbuminemia. Microbiology with [place] albicans with B strep. ASSESSMENT AND DISCUSSION: 1. Sarcoidosis. 2. Newly diagnosed anal cancer, squamous cell, on radiation therapy and adjuvant chemotherapy. 3. Neutropenia with severe intertriginous inflammatory changes with marked improvement with topical and systemic treatment. At this point, we would transition to oral antimicrobial therapy with Keflex and Diflucan in preparation for a discharge planning. Job ID: [id number] [facility]
[2018-08-28] MEDS: Escitalopram Oxalate 20 mg Tablet PO SCH (08:59)
[2018-08-28] MEDS: Furosemide 40 MG/4 ML VIAL SLOW IVP SCH (08:59)
[2018-08-28] MEDS: AMOXicillin 250 MG CAP PO SCH ×2 (08:59→20:41)
[2018-08-28] MEDS: Carvedilol 3.125 MG TAB PO SCH ×2 (08:59→20:41)
[2018-08-28] MEDS: Potassium Chloride 20 MEQ TAB PO SCH ×2 (08:59→18:40)
[2018-08-28] MEDS: Sildenafil Citrate 20 MG TAB PO SCH ×3 (08:59→20:41)
[2018-08-28] MEDS: Ferrous Sulfate 325 MG TAB PO SCH ×2 (08:59→18:40)
[2018-08-28] MEDS: Alogliptin 25 MG TAB PO SCH (09:00)
[2018-08-28] MEDS: diphenhydrAMINE 25 MG CAP PO SCH (09:03)
[2018-08-28] MEDS: Sodium Chloride 0.65% Nasal 44 ML BOT EA NARE PRN (09:05)
[2018-08-28] MEDS: Nystatin Powder 15 GM BOT TOP SCH ×2 (09:05→20:41)
--- NOTE | 2018-08-28 09:40 | RAD ---
FRONTAL VIEW CHEST: Date: 08/28/18 COMPARISON: Previous day. CLINICAL INDICATION: Pleural effusion, follow-up. FINDINGS: There is a right chest port remaining. Persistent pleural and parenchymal density throughout the indigo rity of the right hemithorax remains. Left lung is hyperinflated with interstitial prominence. Cardia c silhouette and pulmonary vasculature remain prominent. IMPRESSION: Persistent prominent pleural and parenchymal density of the right hemithorax. There remains enlargeme nt of the cardiomediastinal silhouette and notable focal prominence of the right hilum. Recommend con tinued follow-up. POS: [facility]
--- NOTE | 2018-08-28 11:45 | PDOC.FM ---
- Subjective Subjective: No acute events overnight. Pt reports cont pain and swelling to waist. Otherwise improvement in dermatitis vs cellulitis. - Objective MAR Reviewed: Yes Vital Signs & Weight: Vital Signs (12 hours) Temp Pulse Resp BP Pulse Ox 08/28/18 10:12 95 22 H 90 L 08/28/18 08:00 98.2 F 124 H 22 H 144/65 H 94 L 08/28/18 04:00 98.4 F 100 18 138/80 96 08/28/18 00:00 97.6 F 100 18 120/72 93 L Weight Admit Weight 106.095 kg Weight 126.643 kg Most Recent Monitor Data Heart Rate from ECG 94 NIBP 95/54 I&O: 08/27/18 08/28/18 08/29/18 06:59 06:59 06:59 Intake Total 1620 750 Output Total 2450 1974 Balance -835 -2668 Result Diagrams: 08/28/18 04:17 08/28/18 04:17 <Ronald Mendez - Last Filed: 08/28/18 11:44> - Objective Vital Signs & Weight: Vital Signs (12 hours) Temp Pulse Resp BP Pulse Ox 08/28/18 10:12 95 22 H 90 L 08/28/18 08:00 98.2 F 124 H 22 H 144/65 H 94 L 08/28/18 04:00 98.4 F 100 18 138/80 96 Weight Admit Weight 106.095 kg Weight 126.643 kg Most Recent Monitor Data Heart Rate from ECG 94 NIBP 95/54 I&O: 08/27/18 08/28/18 08/29/18 06:59 06:59 06:59 Intake Total 1620 750 Output Total 2450 1974 Balance -948 -7643 Result Diagrams: 08/28/18 04:17 08/28/18 04:17 <Belen Santiago - Last Filed: 08/28/18 13:15> Phys Exam - Physical Examination Constitutional: NAD HEENT: PERRLA, sclera anicteric Neck: no nodes, no JVD Respiratory: no wheezing, no rales, no rhonchi, clear to auscultation bilateral Cardiovascular: RRR, no significant murmur, no rub Gastrointestinal: soft, non-tender, no distention, positive bowel sounds Musculoskeletal: pulses present, edema present (pitting to waist) Neurological: non-focal, moves all 4 limbs Psychiatric: normal affect Skin: cap refill <2 seconds <Ronald Mendez - Last Filed: 08/28/18 11:44> Dx/Plan (1) Cellulitis Code(s): L03.90 - CELLULITIS, UNSPECIFIED Status: Acute (2) Dermatitis Code(s): L30.9 - DERMATITIS, UNSPECIFIED Status: Acute (3) Neutropenia Code(s): D70.9 - NEUTROPENIA, UNSPECIFIED Status: Acute (4) Proctitis, radiation Code(s): K62.7 - RADIATION PROCTITIS Status: Acute (5) 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 - MALIGNANT NEOPLASM OF ANUS, UNSPECIFIED Status: Chronic (6) DMII (diabetes mellitus, type 2) Status: Chronic (7) HTN (hypertension) Code(s): I10 - ESSENTIAL (PRIMARY) HYPERTENSION Status: Chronic (8) MARLENE (obstructive sleep apnea) Code(s): G47.33 - OBSTRUCTIVE SLEEP APNEA (ADULT) (PEDIATRIC) Status: Chronic - Plan Plan: Radiation induced dermatitis & possible superimposed cellulitis -Cultures grew strep & genaro -Continue oral amoxicillin & diflucan -Last fever 08/21 -[place] for pain; tramadol & morphine for breakthrough cont oral abx - stable for DC to swing bed today Chronic neutropenia likely 2/2 sarcoidosis -Likely 2/[address] 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 Kumari -Resumed radiation treatments Bladder spasm -Continue hyocyamine & mirbetriq Hx of DM -stable ook for DC Hx of MARLENE -CPAP qhs Hx of Sarcoidosis -aware Hx of atrial fibrillation -aware, continue coreg & xarelto MARS, RESOLVED -will continue fluids Dispo: Plan for DC to swing bed this afternoon. Pending insurance approval. Iatrogenic overload, lasix IVP X1. <Ronald Mendez - Last Filed: 08/28/18 11:44> Attending Addendum - Attending Addendum Date/Time: 08/28/18 1314 I personally evaluated the patient and discussed the management with Dr. Mendez. I agree with the History, Examination, Assessment and Plan documented above with any addition or exceptions noted below. The patient is still waiting on insurance approval for [facility]. Will increase lasix as she still has abdominal swelling. <Belen Santiago - Last Filed: 08/28/18 13:15>
[2018-08-28] MEDS ORDERED: Cephalexin 250 MG CAP PO SCH (12:00)
[2018-08-28] MEDS ORDERED: Furosemide 40 MG/4 ML VIAL SLOW IVP SCH (12:15)
[2018-08-28] MEDS: Fluconazole 100 MG TAB PO SCH (14:46)
[2018-08-28] MEDS: Fluticasone Propionate Nasal Spray 16 gm Bottle NASAL SCH (18:41)
[2018-08-28] MEDS: Diphenoxylate HCl/Atropine Tablet PO PRN (19:36)
[2018-08-28] MEDS: Rivaroxaban 10 MG TAB PO SCH (20:42)
[2018-08-29 04:49] LABS: ALT (SGPT) 8 U/L (8-55); AST (SGOT) 23 U/L (5-34); Albumin 2.5 g/dL (3.4-4.8); Alkaline Phosphatase 169 U/L (40-150); Anion Gap 6 mmol/L (10-20); BUN (Urea Nitrogen) 9 mg/dL (9.8-20.1); Bilirubin, Total 1.1 mg/dL (0.2-1.2); Calc. Creatinine Clearance 101 mL/min (70-130); Calcium 8.9 mg/dL (7.8-10.44); Carbon Dioxide 26 mmol/L (23-31); Chloride 107 mmol/L (98-107); Estimated GFR-MDRD 49; Globulin 3.8 g/dL (2.4-3.5); Glucose 111 mg/dL (80-115); Potassium 3.4 mmol/L (3.5-5.1); Protein, Total 6.3 g/dL (6.0-8.3); Sodium 136 mmol/L (136-145)
[2018-08-29 05:12] LABS: Band 6 % (5-11); Hemoglobin 7.8 g/dL (12.0-16.0); Hypochromia SLIGHT = 6-15 cells (100X) (0-5/hpf); Lymphocytes 10 % (21-51); MDiff Complete? YES; Macrocytosis SLIGHT = 6-15 cells (100X) (0-5/hpf); Mean Corpuscular HGB CONC 32.7 g/dL (32.0-36.0); Mean Corpuscular Hemoglobin 35.3 pg (27.0-31.0); Mean Platelet Volume 12.1 fL (7.4-10.4); Monocytes 6 % (0-10); Neutrophil 78 % (42-75); PLT Morphology Comment Appears Decreased; Platelet Count 51 thou/uL (130-400); Polychromasia SLIGHT = 2-3 cells (100X) (0-2/hpf); RBC Distribution Width 21.8 % (11.5-14.5); Red Blood Cell (RBC) Count 2.21 mill/uL (4.20-5.40)
[2018-08-29] MEDS: Mometasone/Formoterol 120 PUFF INHALER INH SCH ×2 (07:02→18:30)
--- NOTE | 2018-08-29 07:51 | PDOC.FM ---
- Subjective Subjective: No acute events overnight. Pt reports some sensitivity and redness around intertriginous groin area after radiation therapy yesterday. Otherwise, denies pain. Episodes of diarrhea after radiation therapy. No other complaints. - Objective Vital Signs & Weight: Vital Signs (12 hours) Temp Pulse Resp BP Pulse Ox 08/29/18 07:20 98.3 F 111 H 20 128/77 91 L 08/29/18 07:02 80 16 Weight Admit Weight 106.095 kg Weight 125.554 kg Most Recent Monitor Data Heart Rate from ECG 94 NIBP 95/54 I&O: 08/28/18 08/29/18 08/30/18 06:59 06:59 06:59 Intake Total 750 1900 Output Total 1974 1849 Balance -1225 50 Result Diagrams: 08/29/18 03:55 08/29/18 03:55 <Ronald Mendez - Last Filed: 08/29/18 07:50> - Objective Vital Signs & Weight: Vital Signs (12 hours) Temp Pulse Resp BP Pulse Ox 08/29/18 10:23 100 20 08/29/18 08:00 92 L 08/29/18 07:20 98.3 F 111 H 20 128/77 91 L 08/29/18 07:02 80 16 Weight Admit Weight 106.095 kg Weight 125.554 kg Most Recent Monitor Data Heart Rate from ECG 94 NIBP 95/54 I&O: 08/28/18 08/29/18 08/30/18 06:59 06:59 06:59 Intake Total 750 1900 Output Total 1974 1849 Balance -1225 50 Result Diagrams: 08/29/18 03:55 08/29/18 03:55 <Belen Santiago - Last Filed: 08/29/18 15:22> Phys Exam - Physical Examination Constitutional: NAD HEENT: PERRLA, moist MMs Neck: no nodes, no JVD Respiratory: no rales, no rhonchi, wheezing present (scattered) Cardiovascular: RRR, no significant murmur, no rub Gastrointestinal: soft, non-tender, no distention, positive bowel sounds Musculoskeletal: pulses present, edema present (2+ pitting to above waist) Neurological: non-focal, moves all 4 limbs Skin: normal turgor, cap refill <2 seconds Deviation from normal: mild erythema and sloughing of skin around groin, improved from previously <Ronald Mendez - Last Filed: 08/29/18 07:50> Dx/Plan (1) Cellulitis Code(s): L03.90 - CELLULITIS, UNSPECIFIED Status: Acute (2) Dermatitis Code(s): L30.9 - DERMATITIS, UNSPECIFIED Status: Acute (3) Neutropenia Code(s): D70.9 - NEUTROPENIA, UNSPECIFIED Status: Acute (4) Proctitis, radiation Code(s): K62.7 - RADIATION PROCTITIS Status: Acute (5) 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 - MALIGNANT NEOPLASM OF ANUS, UNSPECIFIED Status: Chronic (6) DMII (diabetes mellitus, type 2) Status: Chronic (7) HTN (hypertension) Code(s): I10 - ESSENTIAL (PRIMARY) HYPERTENSION Status: Chronic (8) MARLENE (obstructive sleep apnea) Code(s): G47.33 - OBSTRUCTIVE SLEEP APNEA (ADULT) (PEDIATRIC) Status: Chronic (9) Volume overload Code(s): E87.70 - FLUID OVERLOAD, UNSPECIFIED Status: Acute - Plan Plan: Volume overload: - pt is approx 11l up since admission and has pitting edema to above the waist. - will give metalozaone in addition to lasix to improve volume status - slight increase in creatinine this am; however, pt likley intravascularly depleted and GFR/Cr will likley improve with improved volume status and mobilazation of fluid - trend BMP Radiation induced dermatitis & possible superimposed cellulitis -cont amoxil and diflucan for today and plan for DC to swing bed vs SNF Chronic neutropenia likely 2/2 sarcoidosis -Likely 2/[address] 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 Kumari -Resumed radiation treatments, lomotil prior to tx Bladder spasm -Continue hyocyamine & mirbetriq Hx of DM -stable ok for DC Hx of MARLENE -CPAP qhs Hx of Sarcoidosis -aware Hx of atrial fibrillation -aware, continue coreg & xarelto MARS, RESOLVED - pt is extremely volume up and + approx 11 L since admission, will diurese in hopes that improved volume status will normalize Cr. Metolazone and lasix today and monitor Is Os. Dispo: Plan for DC to swing bed vs rehab vs snf this afternoon 2/2 deconditioning, denied for swing bed yesterday. Otherwise, medically stable. <Ronald Mendez - Last Filed: 08/29/18 07:50> Attending Addendum - Attending Addendum Date/Time: 08/29/18 1521 I personally evaluated the patient and discussed the management with Dr. Mendez. I agree with the History, Examination, Assessment and Plan documented above with any addition or exceptions noted below. the patient is volume up several liters. Adding metolazone to her IV lasix. Pt denied for swing bed. Looking for alternate placement. <Belen Santiago - Last Filed: 08/29/18 15:22>
[2018-08-29] MEDS ORDERED: Metolazone 2.5 MG TAB PO ONE (08:30)
[2018-08-29] MEDS: Sildenafil Citrate 20 MG TAB PO SCH ×3 (09:44→21:17)
[2018-08-29] MEDS: Escitalopram Oxalate 20 mg Tablet PO SCH (09:45)
[2018-08-29] MEDS: Metolazone 5 MG TAB PO SCH (09:45)
[2018-08-29] MEDS: Potassium Chloride 20 MEQ TAB PO SCH ×2 (09:45→17:31)
[2018-08-29] MEDS: Carvedilol 3.125 MG TAB PO SCH ×2 (09:45→21:17)
[2018-08-29] MEDS: Ferrous Sulfate 325 MG TAB PO SCH ×2 (09:45→17:31)
[2018-08-29] MEDS: Furosemide 40 MG/4 ML VIAL SLOW IVP SCH (09:45)
[2018-08-29] MEDS: AMOXicillin 250 MG CAP PO SCH ×2 (09:49→21:17)
[2018-08-29] MEDS: diphenhydrAMINE 25 MG CAP PO SCH (09:50)
[2018-08-29] MEDS: Nystatin Powder 15 GM BOT TOP SCH ×2 (09:52→21:18)
[2018-08-29] MEDS: Alogliptin 25 MG TAB PO SCH (09:53)
[2018-08-29] MEDS: Sodium Chloride 0.65% Nasal 44 ML BOT EA NARE PRN (09:56)
[2018-08-29] MEDS: Morphine 2 MG/ML SYRINGE SLOW IVP PRN ×2 (11:12→21:22)
[2018-08-29] MEDS: Fluticasone Propionate Nasal Spray 16 gm Bottle NASAL SCH (15:37)
[2018-08-29] MEDS: Fluconazole 100 MG TAB PO SCH (15:41)
[2018-08-29] MEDS: Diphenoxylate HCl/Atropine Tablet PO PRN (17:31)
[2018-08-29] MEDS: Rivaroxaban 10 MG TAB PO SCH (21:17)
[2018-08-30] MEDS: Mometasone/Formoterol 120 PUFF INHALER INH SCH ×2 (06:52→19:16)
[2018-08-30 06:54] LABS: ALT (SGPT) 7 U/L (8-55); AST (SGOT) 26 U/L (5-34); Albumin 2.5 g/dL (3.4-4.8); Alkaline Phosphatase 175 U/L (40-150); Anion Gap 10 mmol/L (10-20); BUN (Urea Nitrogen) 8 mg/dL (9.8-20.1); Bilirubin, Total 1.4 mg/dL (0.2-1.2); Calc. Creatinine Clearance 99 mL/min (70-130); Calcium 9.2 mg/dL (7.8-10.44); Carbon Dioxide 25 mmol/L (23-31); Chloride 105 mmol/L (98-107); Estimated GFR-MDRD 49; Globulin 3.9 g/dL (2.4-3.5); Glucose 100 mg/dL (80-115); Potassium 3.6 mmol/L (3.5-5.1); Protein, Total 6.4 g/dL (6.0-8.3); Sodium 136 mmol/L (136-145)
[2018-08-30 07:08] LABS: Band 16 % (5-11); Hemoglobin 8.1 g/dL (12.0-16.0); Lymphocytes 20 % (21-51); MDiff Complete? YES; Macrocytosis SLIGHT = 6-15 cells (100X) (0-5/hpf); Mean Corpuscular HGB CONC 31.1 g/dL (32.0-36.0); Mean Corpuscular Hemoglobin 34.2 pg (27.0-31.0); Mean Platelet Volume 11.6 fL (7.4-10.4); Monocytes 20 % (0-10); Neutrophil 44 % (42-75); Ovalocytes SLIGHT = 2-5 cells (100X) (0-1/hpf); PLT Morphology Comment Appears Decreased; Platelet Count 51 thou/uL (130-400); Polychromasia SLIGHT = 2-3 cells (100X) (0-2/hpf); RBC Distribution Width 21.8 % (11.5-14.5); Red Blood Cell (RBC) Count 2.38 mill/uL (4.20-5.40); Tear Drops SLIGHT = 2-5 cells (100X) (0-1/hpf); White Blood Cell (WBC) Count 1.3 thou/uL (4.8-10.8)
[2018-08-30] MEDS ORDERED: Magnesium 2 GM/50 ML 2 GM in Premix Bag 1 BAG IVPB SCH (08:00)
[2018-08-30] MEDS: AMOXicillin 250 MG CAP PO SCH ×2 (08:21→20:39)
[2018-08-30] MEDS: Sildenafil Citrate 20 MG TAB PO SCH ×3 (08:21→20:39)
[2018-08-30] MEDS: diphenhydrAMINE 25 MG CAP PO SCH (08:22)
[2018-08-30] MEDS: Alogliptin 25 MG TAB PO SCH (08:22)
[2018-08-30] MEDS: Escitalopram Oxalate 20 mg Tablet PO SCH (08:22)
[2018-08-30] MEDS: Ferrous Sulfate 325 MG TAB PO SCH ×2 (08:22→16:56)
[2018-08-30] MEDS: Metolazone 5 MG TAB PO SCH (08:22)
[2018-08-30] MEDS: Potassium Chloride 20 MEQ TAB PO SCH ×2 (08:22→16:56)
[2018-08-30] MEDS: Nystatin Powder 15 GM BOT TOP SCH ×2 (08:23→20:40)
[2018-08-30] MEDS: Carvedilol 3.125 MG TAB PO SCH ×2 (08:23→20:39)
[2018-08-30] MEDS: Fluticasone Propionate Nasal Spray 16 gm Bottle NASAL SCH (08:23)
[2018-08-30] MEDS: Furosemide 40 MG/4 ML VIAL SLOW IVP SCH (08:23)
--- NOTE | 2018-08-30 09:42 | PDOC.FM ---
- Subjective Subjective: LORNA overnight. Pt ready to go leave hospital and fluid status has improved. No more pain from edema in upper legs. - Objective Vital Signs & Weight: Vital Signs (12 hours) Temp Pulse Resp BP Pulse Ox 08/30/18 08:00 98.9 F 96 16 174/73 H 100 08/30/18 06:53 109 H 20 94 L 08/30/18 06:52 109 H 20 94 L 08/30/18 03:46 98.3 F 99 20 135/67 97 08/30/18 02:12 93 L Weight Admit Weight 106.095 kg Weight 122.016 kg Most Recent Monitor Data Heart Rate from ECG 94 NIBP 95/54 I&O: 08/29/18 08/30/18 08/31/18 06:59 06:59 06:59 Intake Total 1900 1200 Output Total 1850 2850 Balance 50 -1650 Result Diagrams: 08/30/18 06:03 08/30/18 06:03 <Ronald Mendez - Last Filed: 08/30/18 09:38> - Objective Vital Signs & Weight: Vital Signs (12 hours) Temp Pulse Resp BP Pulse Ox 08/30/18 10:22 102 H 20 08/30/18 08:00 98.9 F 96 16 174/73 H 100 08/30/18 06:53 109 H 20 94 L 08/30/18 06:52 109 H 20 94 L 08/30/18 03:46 98.3 F 99 20 135/67 97 08/30/18 02:12 93 L Weight Admit Weight 106.095 kg Weight 122.016 kg Most Recent Monitor Data Heart Rate from ECG 94 NIBP 95/54 I&O: 08/29/18 08/30/18 08/31/18 06:59 06:59 06:59 Intake Total 1900 1200 Output Total 1850 2850 Balance 50 -1650 Result Diagrams: 08/30/18 06:03 08/30/18 06:03 <Belen Santiago - Last Filed: 08/30/18 11:02> Phys Exam - Physical Examination Constitutional: NAD HEENT: PERRLA, sclera anicteric Neck: no nodes, no JVD, supple Respiratory: no wheezing, no rales, no rhonchi, clear to auscultation bilateral Cardiovascular: RRR, no significant murmur, no rub Gastrointestinal: soft, non-tender, no distention, positive bowel sounds Musculoskeletal: no edema, pulses present Neurological: non-focal, normal sensation, moves all 4 limbs Psychiatric: normal affect Skin: no rash, cap refill <2 seconds <Ronald Mendez - Last Filed: 08/30/18 09:38> Dx/Plan (1) Cellulitis Code(s): L03.90 - CELLULITIS, UNSPECIFIED Status: Acute (2) Dermatitis Code(s): L30.9 - DERMATITIS, UNSPECIFIED Status: Acute (3) Neutropenia Code(s): D70.9 - NEUTROPENIA, UNSPECIFIED Status: Acute (4) Proctitis, radiation Code(s): K62.7 - RADIATION PROCTITIS Status: Acute (5) 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 - MALIGNANT NEOPLASM OF ANUS, UNSPECIFIED Status: Chronic (6) DMII (diabetes mellitus, type 2) Status: Chronic (7) HTN (hypertension) Code(s): I10 - ESSENTIAL (PRIMARY) HYPERTENSION Status: Chronic (8) MARLENE (obstructive sleep apnea) Code(s): G47.33 - OBSTRUCTIVE SLEEP APNEA (ADULT) (PEDIATRIC) Status: Chronic (9) Volume overload Code(s): E87.70 - FLUID OVERLOAD, UNSPECIFIED Status: Acute (10) Hypomagnesemia Code(s): E83.42 - HYPOMAGNESEMIA Status: Acute - Plan Plan: Volume overload: - pt is approx 11l up since admission and has pitting edema to above the waist. - cont metolazone and lasix - volume status improved and creatinine stable - stable for dc to rehab vs SNF Radiation induced dermatitis & possible superimposed cellulitis -cont amoxil and diflucan for today and plan for DC to swing bed vs SNF Chronic neutropenia likely 2/2 sarcoidosis -Likely 2/[address] 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 Kumari -Resumed radiation treatments, lomotil prior to tx Bladder spasm -Continue hyocyamine & mirbetriq Hx of DM -stable ok for DC Hx of MARLENE -CPAP qhs Hx of Sarcoidosis -aware Hx of atrial fibrillation -aware, continue coreg & xarelto MARS, RESOLVED -creatinine stable - cont duresis and monitor bun/cr Hypomagnesemia: - replace with 2gm mag sulfate, K= stable Dispo: Stable for DC to swing bed vs rehab vs snf. Cont diuresis and replace elytes as needed. <Ronald Mendez - Last Filed: 08/30/18 09:38> Attending Addendum - Attending Addendum Date/Time: 08/30/18 1102 I personally evaluated the patient and discussed the management with Dr. Mendez. I agree with the History, Examination, Assessment and Plan documented above with any addition or exceptions noted below. Replacing magnesium. will give additional metolazone dose with her lasix today to help with diuresis. Still working on placement. <Belen Santiago - Last Filed: 08/30/18 11:02>
[2018-08-30] MEDS: HYDROcodone/Acetaminophen 10/325 mg Tablet PO PRN (10:02)
[2018-08-30] MEDS: Morphine 2 MG/ML SYRINGE SLOW IVP PRN (12:49)
[2018-08-30] MEDS: Fluconazole 100 MG TAB PO SCH (12:51)
[2018-08-30] MEDS: Loperamide HCl 2 MG CAP PO PRN (14:40)
[2018-08-30] MEDS: Rivaroxaban 10 MG TAB PO SCH (20:39)
[2018-08-31] MEDS: HYDROcodone/Acetaminophen 10/325 mg Tablet PO PRN ×2 (00:02→21:24)
[2018-08-31 06:07] LABS: ALT (SGPT) 7 U/L (8-55); AST (SGOT) 23 U/L (5-34); Albumin 2.5 g/dL (3.4-4.8); Alkaline Phosphatase 173 U/L (40-150); Anion Gap 8 mmol/L (10-20); BUN (Urea Nitrogen) 9 mg/dL (9.8-20.1); Bilirubin, Total 1.1 mg/dL (0.2-1.2); Calc. Creatinine Clearance 104 mL/min (70-130); Calcium 8.9 mg/dL (7.8-10.44); Carbon Dioxide 28 mmol/L (23-31); Chloride 102 mmol/L (98-107); Estimated GFR-MDRD 55; Globulin 3.9 g/dL (2.4-3.5); Glucose 99 mg/dL (80-115); Potassium 3.5 mmol/L (3.5-5.1); Protein, Total 6.4 g/dL (6.0-8.3); Sodium 134 mmol/L (136-145)
[2018-08-31 06:19] LABS: Band 15 % (5-11); Eosinophils 2 % (0-10); Hemoglobin 7.7 g/dL (12.0-16.0); Lymphocytes 18 % (21-51); MDiff Complete? YES; Macrocytosis SLIGHT = 6-15 cells (100X) (0-5/hpf); Mean Corpuscular HGB CONC 32.3 g/dL (32.0-36.0); Mean Corpuscular Hemoglobin 35.3 pg (27.0-31.0); Mean Platelet Volume 11.9 fL (7.4-10.4); Monocytes 21 % (0-10); Neutrophil 44 % (42-75); PLT Morphology Comment Appears Decreased; Platelet Count 59 thou/uL (130-400); RBC Distribution Width 22.1 % (11.5-14.5); Red Blood Cell (RBC) Count 2.19 mill/uL (4.20-5.40); White Blood Cell (WBC) Count 1.3 thou/uL (4.8-10.8)
[2018-08-31] MEDS: Mometasone/Formoterol 120 PUFF INHALER INH SCH ×2 (06:52→19:28)
[2018-08-31] MEDS: Potassium Chloride 20 MEQ TAB PO SCH ×2 (08:52→15:30)
[2018-08-31] MEDS: Carvedilol 3.125 MG TAB PO SCH ×2 (08:52→20:27)
[2018-08-31] MEDS: Metolazone 5 MG TAB PO SCH (08:53)
[2018-08-31] MEDS: Ferrous Sulfate 325 MG TAB PO SCH ×2 (08:53→15:30)
[2018-08-31] MEDS: Alogliptin 25 MG TAB PO SCH (08:53)
[2018-08-31] MEDS: Escitalopram Oxalate 20 mg Tablet PO SCH (08:55)
[2018-08-31] MEDS: diphenhydrAMINE 25 MG CAP PO SCH (08:55)
[2018-08-31] MEDS: Sildenafil Citrate 20 MG TAB PO SCH ×3 (08:56→20:27)
[2018-08-31] MEDS: Nystatin Powder 15 GM BOT TOP SCH ×2 (08:56→20:27)
[2018-08-31] MEDS: Fluticasone Propionate Nasal Spray 16 gm Bottle NASAL SCH (09:00)
[2018-08-31] MEDS: AMOXicillin 250 MG CAP PO SCH ×2 (09:10→20:27)
[2018-08-31] MEDS: Furosemide 100 MG/10 ML VIAL SLOW IVP SCH (10:22)
--- NOTE | 2018-08-31 10:54 | PDOC.FM ---
- Subjective Subjective: LORNA overnight. Pt reports some pain forom swelling in hips and legs, although conts to improve. - Objective Vital Signs & Weight: Vital Signs (12 hours) Temp Pulse Resp BP Pulse Ox 08/31/18 08:00 98.3 F 100 94 H 124/76 20 L 08/31/18 06:53 77 16 95 08/31/18 06:52 77 16 95 08/31/18 04:50 98.2 F 88 18 127/77 94 L 08/31/18 00:57 97.5 F L 97 16 134/78 92 L Weight Admit Weight 106.095 kg Weight 117.027 kg Most Recent Monitor Data Heart Rate from ECG 94 NIBP 95/54 I&O: 08/30/18 08/31/18 09/01/18 06:59 06:59 06:59 Intake Total 1200 810 Output Total 2850 1100 Balance -1650 -290 Result Diagrams: 08/31/18 04:25 08/31/18 04:25 <Ronald Mendez - Last Filed: 08/31/18 10:49> - Objective Vital Signs & Weight: Vital Signs (12 hours) Temp Pulse Resp BP Pulse Ox 08/31/18 08:00 98.3 F 100 94 H 124/76 20 L 08/31/18 06:53 77 16 95 08/31/18 06:52 77 16 95 08/31/18 04:50 98.2 F 88 18 127/77 94 L Weight Admit Weight 106.095 kg Weight 117.027 kg Most Recent Monitor Data Heart Rate from ECG 94 NIBP 95/54 I&O: 08/30/18 08/31/18 09/01/18 06:59 06:59 06:59 Intake Total 1200 810 Output Total 2850 1100 Balance -1650 -290 Result Diagrams: 08/31/18 04:25 08/31/18 04:25 <Belen Santiago - Last Filed: 08/31/18 16:49> Phys Exam - Physical Examination Constitutional: NAD HEENT: PERRLA, moist MMs Neck: no nodes, no JVD, supple Respiratory: no wheezing, no rales, no rhonchi, clear to auscultation bilateral Cardiovascular: RRR, no significant murmur, no rub Gastrointestinal: soft, non-tender, no distention, positive bowel sounds Musculoskeletal: pulses present, edema present (pittingto abdomen, improved) Neurological: non-focal, normal sensation, moves all 4 limbs Skin: no rash, cap refill <2 seconds <Ronald Mendez - Last Filed: 08/31/18 10:49> Dx/Plan (1) Cellulitis Code(s): L03.90 - CELLULITIS, UNSPECIFIED Status: Acute (2) Dermatitis Code(s): L30.9 - DERMATITIS, UNSPECIFIED Status: Acute (3) Neutropenia Code(s): D70.9 - NEUTROPENIA, UNSPECIFIED Status: Acute (4) Proctitis, radiation Code(s): K62.7 - RADIATION PROCTITIS Status: Acute (5) 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 - MALIGNANT NEOPLASM OF ANUS, UNSPECIFIED Status: Chronic (6) DMII (diabetes mellitus, type 2) Status: Chronic (7) HTN (hypertension) Code(s): I10 - ESSENTIAL (PRIMARY) HYPERTENSION Status: Chronic (8) MARLENE (obstructive sleep apnea) Code(s): G47.33 - OBSTRUCTIVE SLEEP APNEA (ADULT) (PEDIATRIC) Status: Chronic (9) Volume overload Code(s): E87.70 - FLUID OVERLOAD, UNSPECIFIED Status: Acute (10) Hypomagnesemia Code(s): E83.42 - HYPOMAGNESEMIA Status: Acute - Plan Plan: Volume overload: - cont metolazone and increase lasix to 80mg, metolazone to be given 30 min prior to lasix - monitor Is/Os 2l fluid restriction Radiation induced dermatitis & possible superimposed cellulitis -cont amoxil and diflucan 10 day course Chronic neutropenia likely 2/2 sarcoidosis -Likely 2/[address] 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 Kumari -2 days of chemo and radiation tx - cw in contact with various facilities, hans dc to snf vs rehab after completion of last chemo radiation cycle Bladder spasm -Continue hyocyamine & mirbetriq Hx of DM -stable ok for DC Hx of MARLENE -CPAP qhs Hx of Sarcoidosis -aware Hx of atrial fibrillation -aware, continue coreg & xarelto MARS, RESOLVED -creatinine stable - cont duresis and monitor bun/cr - cr improved with improved volume status Hypomagnesemia: - resolved, monitor if persistently low K+ Dispo: Stable for DC to swing bed vs rehab vs snf. Cont diuresis and replace elytes as needed. No change from prior. <Ronald Mendez - Last Filed: 08/31/18 10:49> Attending Addendum - Attending Addendum Date/Time: 08/31/18 1201 I personally evaluated the patient and discussed the management with Dr. Mendez. I agree with the History, Examination, Assessment and Plan documented above with any addition or exceptions noted below. Pt remains neutropenic. She still has pitting edema to abdomen though diuresis is improving. Will continue IV lasix and metolazone. Pt will complete radiation tomorrow. Trying to find placement. <Belen Santiago - Last Filed: 08/31/18 16:49>
[2018-08-31] MEDS: Morphine 2 MG/ML SYRINGE SLOW IVP PRN (11:08)
[2018-08-31 12:06] VITALS: BMI 42.9
[2018-08-31] MEDS: Fluconazole 100 MG TAB PO SCH (15:29)
[2018-08-31] MEDS: Rivaroxaban 10 MG TAB PO SCH (20:26)
[2018-09-01] MEDS: Mometasone/Formoterol 120 PUFF INHALER INH SCH ×2 (05:41→18:50)
[2018-09-01 05:54] LABS: ALT (SGPT) Less than 7 U/L (8-55); AST (SGOT) 22 U/L (5-34); Albumin 2.6 g/dL (3.4-4.8); Alkaline Phosphatase 192 U/L (40-150); Anion Gap 9 mmol/L (10-20); BUN (Urea Nitrogen) 9 mg/dL (9.8-20.1); Bilirubin, Total 0.9 mg/dL (0.2-1.2); Calc. Creatinine Clearance 97 mL/min (70-130); Calcium 9.2 mg/dL (7.8-10.44); Carbon Dioxide 29 mmol/L (23-31); Chloride 99 mmol/L (98-107); Estimated GFR-MDRD 50; Globulin 4.2 g/dL (2.4-3.5); Glucose 96 mg/dL (80-115); Potassium 3.4 mmol/L (3.5-5.1); Protein, Total 6.8 g/dL (6.0-8.3); Sodium 134 mmol/L (136-145)
[2018-09-01 06:57] LABS: Hemoglobin 8.7 g/dL (12.0-16.0); Mean Corpuscular HGB CONC 31.8 g/dL (32.0-36.0); Mean Platelet Volume 11.8 fL (7.4-10.4); Platelet Count 65 thou/uL (130-400); RBC Distribution Width 22.6 % (11.5-14.5); Red Blood Cell (RBC) Count 2.48 mill/uL (4.20-5.40); White Blood Cell (WBC) Count 1.4 thou/uL (4.8-10.8)
[2018-09-01 06:59] LABS: Anisocytosis SLIGHT = 6-15 cells (100X) (0-5/hpf); Band 14 % (5-11); Eosinophils 3 % (0-10); Lymphocytes 15 % (21-51); MDiff Complete? YES; Macrocytosis SLIGHT = 6-15 cells (100X) (0-5/hpf); Monocytes 13 % (0-10); Neutrophil 55 % (42-75); Nucleated RBC 1 % (0); PLT Morphology Comment Appears Decreased
[2018-09-01] MEDS: AMOXicillin 250 MG CAP PO SCH ×2 (08:21→20:20)
[2018-09-01] MEDS: Morphine 2 MG/ML SYRINGE SLOW IVP PRN ×2 (08:23→22:14)
[2018-09-01] MEDS: Furosemide 100 MG/10 ML VIAL SLOW IVP SCH ×2 (08:35→12:47)
[2018-09-01] MEDS: Sildenafil Citrate 20 MG TAB PO SCH ×3 (08:36→20:21)
[2018-09-01] MEDS: Alogliptin 25 MG TAB PO SCH (08:36)
[2018-09-01] MEDS: Ferrous Sulfate 325 MG TAB PO SCH ×2 (08:37→17:19)
[2018-09-01] MEDS: Potassium Chloride 20 MEQ TAB PO SCH ×2 (08:37→17:19)
[2018-09-01] MEDS: Escitalopram Oxalate 20 mg Tablet PO SCH (08:37)
[2018-09-01] MEDS: Carvedilol 3.125 MG TAB PO SCH ×2 (08:37→20:20)
[2018-09-01] MEDS: Metolazone 5 MG TAB PO SCH (08:37)
[2018-09-01] MEDS: diphenhydrAMINE 25 MG CAP PO SCH (08:38)
[2018-09-01] MEDS: Nystatin Powder 15 GM BOT TOP SCH ×2 (08:39→20:21)
[2018-09-01] MEDS: Fluticasone Propionate Nasal Spray 16 gm Bottle NASAL SCH (08:39)
--- NOTE | 2018-09-01 10:28 | PDOC.FM ---
- Subjective Subjective: LORNA overnight. Pt has one more session of radiation this afternoon and her regimen is complete. Edmea persists above waist, although improved. - Objective Vital Signs & Weight: Vital Signs (12 hours) Temp Pulse Resp BP Pulse Ox 09/01/18 09:30 111 H 20 94 L 09/01/18 07:12 97.7 F 104 H 20 152/89 H 92 L 09/01/18 05:41 99 20 93 L 09/01/18 05:36 99 20 93 L 09/01/18 02:38 94 L Weight Admit Weight 106.095 kg Weight 97.568 kg Most Recent Monitor Data Heart Rate from ECG 94 NIBP 95/54 I&O: 08/31/18 09/01/18 09/02/18 06:59 06:59 06:59 Intake Total 810 990 Output Total 1100 3650 Balance -290 -2660 Result Diagrams: 09/01/18 03:48 09/01/18 03:48 <Ronald Mendez - Last Filed: 09/01/18 10:27> - Objective Vital Signs & Weight: Vital Signs (12 hours) Temp Pulse Resp BP Pulse Ox 09/01/18 13:51 93 16 95 09/01/18 09:30 111 H 20 94 L 09/01/18 07:12 97.7 F 104 H 20 152/89 H 92 L 09/01/18 05:41 99 20 93 L 09/01/18 05:36 99 20 93 L Weight Admit Weight 106.095 kg Weight 97.568 kg Most Recent Monitor Data Heart Rate from ECG 94 NIBP 95/54 I&O: 08/31/18 09/01/18 09/02/18 06:59 06:59 06:59 Intake Total 810 990 Output Total 1100 3650 Balance -290 -2660 Result Diagrams: 09/01/18 03:48 09/01/18 03:48 <Belen Santiago - Last Filed: 09/01/18 14:43> Phys Exam - Physical Examination Constitutional: NAD HEENT: PERRLA, moist MMs, sclera anicteric Neck: no JVD Respiratory: no wheezing, no rhonchi scattered rales Cardiovascular: RRR, no significant murmur, no rub Gastrointestinal: soft, non-tender, no distention, positive bowel sounds Musculoskeletal: pulses present, edema present Neurological: non-focal, moves all 4 limbs Psychiatric: normal affect Skin: cap refill <2 seconds Deviation from normal: erythema around waist, improved since admission. <Ronald Mendez - Last Filed: 09/01/18 10:27> Dx/Plan (1) Cellulitis Code(s): L03.90 - CELLULITIS, UNSPECIFIED Status: Acute (2) Dermatitis Code(s): L30.9 - DERMATITIS, UNSPECIFIED Status: Acute (3) Neutropenia Code(s): D70.9 - NEUTROPENIA, UNSPECIFIED Status: Acute (4) Proctitis, radiation Code(s): K62.7 - RADIATION PROCTITIS Status: Acute (5) 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 - MALIGNANT NEOPLASM OF ANUS, UNSPECIFIED Status: Chronic (6) DMII (diabetes mellitus, type 2) Status: Chronic (7) HTN (hypertension) Code(s): I10 - ESSENTIAL (PRIMARY) HYPERTENSION Status: Chronic (8) MARLENE (obstructive sleep apnea) Code(s): G47.33 - OBSTRUCTIVE SLEEP APNEA (ADULT) (PEDIATRIC) Status: Chronic (9) Volume overload Code(s): E87.70 - FLUID OVERLOAD, UNSPECIFIED Status: Acute (10) Hypomagnesemia Code(s): E83.42 - HYPOMAGNESEMIA Status: Resolved - Plan Plan: Volume overload: - cont metolazone and increase lasix to 80mg bid, metolazone to be given 30 min prior to lasix - monitor Is/Os 2l fluid restriction Radiation induced dermatitis & possible superimposed cellulitis -cont amoxil and diflucan 10 day course Chronic neutropenia likely 2/2 sarcoidosis -Likely 2/[address] 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 Kumari -2 days of chemo and radiation tx - cw in contact with various facilities, hans dc to snf vs rehab after completion of last chemo radiation cycle Bladder spasm -Continue hyocyamine & mirbetriq Hx of DM -stable ok for DC Hx of MARLENE -CPAP qhs Hx of Sarcoidosis -aware Hx of atrial fibrillation -aware, continue coreg & xarelto MARS, RESOLVED -creatinine stable - cont duresis and monitor bun/cr - cr improved with improved volume status Hypomagnesemia: - resolved, monitor if persistently low K+ Dispo: Stable for DC to swing vs skilled vs rehab, awaiting placement and cm working on placement. Hopefully plan for DC to facility this afternoon, otherwise possibly home tomorrow with PT/OT via home health. Cont diuresis and monitor elytes and renal function while in hospital. <Ronald Mendez - Last Filed: 09/01/18 10:27> Attending Addendum - Attending Addendum Date/Time: 09/01/18 1442 I personally evaluated the patient and discussed the management with Dr. Mendez. I agree with the History, Examination, Assessment and Plan documented above with any addition or exceptions noted below. The patient's lasix will be increased. She has her final radiation today. Still waiting on possible placement at [facility]. If denied, pt will likely go [facility]. <Belen Santiago - Last Filed: 09/01/18 14:43>
[2018-09-01] MEDS: Fluconazole 100 MG TAB PO SCH (12:38)
[2018-09-01] MEDS: Diphenoxylate HCl/Atropine Tablet PO PRN (12:39)
[2018-09-01] MEDS: Acetaminophen 325 MG TAB PO PRN (20:21)
[2018-09-01] MEDS: Rivaroxaban 10 MG TAB PO SCH (20:21)
[2018-09-02] MEDS ORDERED: Metolazone 5 MG TAB PO SCH (05:30)
[2018-09-02] MEDS: Furosemide 100 MG/10 ML VIAL SLOW IVP SCH (05:34)
[2018-09-02] MEDS: Mometasone/Formoterol 120 PUFF INHALER INH SCH ×2 (05:37→18:12)
--- NOTE | 2018-09-02 06:20 | PDOC.FM ---
- Subjective Subjective: Patient reports feeling cold and tired this AM. However, says she feels much better than when she initially came to the hospital. Is eager to go home w/ HH for care and PT. Denies any CP or SOB worse than her baseline. Would like to have her ibarra out so she can move around more easily. - Objective MAR Reviewed: Yes Vital Signs & Weight: Vital Signs (12 hours) Temp Pulse Resp BP Pulse Ox 09/02/18 05:37 110 H 18 94 L 09/02/18 05:33 110 H 18 94 L 09/01/18 19:26 98.7 F 112 H 19 141/71 H 97 09/01/18 18:50 16 Weight Admit Weight 106.095 kg Weight 108.635 kg Most Recent Monitor Data Heart Rate from ECG 94 NIBP 95/54 I&O: 08/31/18 09/01/18 09/02/18 06:59 06:59 06:59 Intake Total 810 990 660 Output Total 1100 3650 6500 Balance -290 -2660 -5840 Result Diagrams: 09/02/18 03:57 09/02/18 03:57 Phys Exam - Physical Examination Constitutional: NAD HEENT: sclera anicteric Neck: supple, full ROM Respiratory: no wheezing, no rales, no rhonchi, clear to auscultation bilateral Cardiovascular: RRR, no significant murmur Gastrointestinal: soft, positive bowel sounds moderate distention with edema in B/L flanks on exam 2+ pitting edema in B/L ankles Neurological: non-focal, moves all 4 limbs Psychiatric: normal affect, A&O x 3 Skin: normal turgor Dx/Plan (1) Anemia Code(s): D64.9 - ANEMIA, UNSPECIFIED Status: Acute (2) Cellulitis Code(s): L03.90 - CELLULITIS, UNSPECIFIED Status: Acute (3) Dermatitis Code(s): L30.9 - DERMATITIS, UNSPECIFIED Status: Acute (4) Hyponatremia Code(s): E87.1 - HYPO-OSMOLALITY AND HYPONATREMIA Status: Chronic (5) Leukopenia Code(s): D72.819 - DECREASED WHITE BLOOD CELL COUNT, UNSPECIFIED Status: Chronic Qualifiers: Leukopenia type: neutropenia (6) Neutropenia Code(s): D70.9 - NEUTROPENIA, UNSPECIFIED Status: Chronic Qualifiers: Neutropenia type: secondary to cancer chemotherapy Qualified Code(s): D70.1 - Agranulocytosis secondary to cancer chemotherapy; T45.1X5A - Adverse effect of antineoplastic and immunosuppressive drugs, initial encounter (7) Proctitis, radiation Code(s): K62.7 - RADIATION PROCTITIS Status: Acute (8) Volume overload Code(s): E87.70 - FLUID OVERLOAD, UNSPECIFIED Status: Acute (9) 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 - MALIGNANT NEOPLASM OF ANUS, UNSPECIFIED Status: Chronic (10) Hypomagnesemia Code(s): E83.42 - HYPOMAGNESEMIA Status: Resolved (11) Acute and chronic respiratory failure with hypoxia Code(s): J96.21 - ACUTE AND CHRONIC RESPIRATORY FAILURE WITH HYPOXIA Status: Acute (12) Afib Code(s): I48.91 - UNSPECIFIED ATRIAL FIBRILLATION Status: Chronic (13) Anal carcinoma Code(s): C21.0 - MALIGNANT NEOPLASM OF ANUS, UNSPECIFIED Status: Chronic (14) Compression fracture of L1 lumbar vertebra Code(s): S32.010A - WEDGE COMPRESSION FRACTURE OF FIRST LUMBAR VERTEBRA, INIT Status: Chronic (15) DMII (diabetes mellitus, type 2) Status: Chronic (16) HTN (hypertension) Code(s): I10 - ESSENTIAL (PRIMARY) HYPERTENSION Status: Chronic (17) MARLENE (obstructive sleep apnea) Code(s): G47.33 - OBSTRUCTIVE SLEEP APNEA (ADULT) (PEDIATRIC) Status: Chronic (18) Osteoporosis Code(s): M81.0 - AGE-RELATED OSTEOPOROSIS W/O CURRENT PATHOLOGICAL FRACTURE Status: Chronic (19) Physical deconditioning Code(s): R53.81 - OTHER MALAISE Status: Chronic (20) Pulmonary HTN Code(s): I27.20 - PULMONARY HYPERTENSION, UNSPECIFIED Status: Chronic (21) Sarcoidosis Code(s): D86.9 - SARCOIDOSIS, UNSPECIFIED Status: Chronic - Plan Plan: Volume overload: - Patient has had a negative fluid balance for the last few days w/ an output of almost 6L yesterday. Will switch back to PO lasix but give 120mg QD rather than normal home dose of 40mg QD since patient still has some significant fluid retention with 2+ pitting edema in her ankles and swelling in abdomen and flanks as well. - Will continue with strict Is/Os & fluid restriction. Radiation induced dermatitis & possible superimposed cellulitis: - Will continue amoxil 10 day course. Chronic neutropenia likely 2/2 sarcoidosis: - Likely 2/[address] Rowe - WBC has been stable but will continue to monitor while in hospital w/ QD labs. [place] UTI: - Stable - Will finish course of diflucan and send home on remaining script if not completed before d/c. 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 - Bleeding has resolved. Hgb stable at 8.4 this AM. - Will continue to monitor H/H w/ QD labs. Hyponatremia: - Resolved, Na 136 this AM. - Will continue to monitor w/ QD bloodwork. Anal SCC: - Followed by Dr. Kumari. - s/p 2 days of chemo and radiation tx Physical deconditioning: - Patient stable from d/c but would benefit from a stay in a SNF given her frail condition and multiple medical issues. Was denied by [facility] [place]. Did not want to pay fee required by [facility] that did not even include PT so opted for [facility]. - Referral made to [facility] yesterday but patient has already established with them prior to admission so free to d/c once back on all PO meds and voiding on her own. Bladder spasm: - Will continue hyocyamine & mirbetriq. - Will do a trial without ibarra today and have patient use bedside commode. - If successful ok to d/c home w/o ibarra in place. pre-DM: - last A1c on February of 2018 5.8. - Will continue w/ ACHS BG checks and mild SSI PRN. Not on any meds at home. Will educate on proper diabetes diet and encourage f/u with PCP to recheck A1c. Hypokalemia: - K was low at 3.2 this AM. Has been low the last several days despite taking 20mEq PO BID. - Will continue PO replacement and recheck a Mg and K level in the AM. Hypomagnesemia: - Resolved but will recheck in the AM 2/2 persistently low K+. Hx of MARLENE: - Will continue CPAP qhs. Hx of Sarcoidosis: - Aware, patient follows w/ Dr. Rowe. Hx of atrial fibrillation: - Aware, will continue coreg & xarelto. MARS: - Resolved. - Will continue diuresis but switch to PO QD rather than IV in anticipation of possible d/c home tomorrow. - Will monitor bun/cr with QD labs. Dispo: Stable for DC; however, patient was denied by [place]. Was accepted by [facility] but will have to pay a QD fee that does not include PT. Patient set up with [facility]. Will monitor closely in the hospital for one more day to monitor urination w/o ibarra and possibly d/c home with HH tomorrow.
[2018-09-02 06:39] LABS: ALT (SGPT) Less than 7 U/L (8-55); AST (SGOT) 20 U/L (5-34); Albumin 2.5 g/dL (3.4-4.8); Alkaline Phosphatase 176 U/L (40-150); Anion Gap 9 mmol/L (10-20); BUN (Urea Nitrogen) 11 mg/dL (9.8-20.1); Bilirubin, Total 0.8 mg/dL (0.2-1.2); Calc. Creatinine Clearance 93 mL/min (70-130); Calcium 9.1 mg/dL (7.8-10.44); Carbon Dioxide 35 mmol/L (23-31); Chloride 95 mmol/L (98-107); Estimated GFR-MDRD 52; Globulin 4.1 g/dL (2.4-3.5); Glucose 84 mg/dL (80-115); Potassium 3.2 mmol/L (3.5-5.1); Protein, Total 6.6 g/dL (6.0-8.3); Sodium 136 mmol/L (136-145)
[2018-09-02 08:39] LABS: Band 8 % (5-11); Eosinophils 1 % (0-10); Hemoglobin 8.4 g/dL (12.0-16.0); Lymphocytes 19 % (21-51); MDiff Complete? YES; Mean Platelet Volume 11.5 fL (7.4-10.4); Metamyelocyte 2 % (0-0); Monocytes 12 % (0-10); Neutrophil 58 % (42-75); PLT Morphology Comment Appears Decreased; Platelet Count 63 thou/uL (130-400); Red Blood Cell (RBC) Count 2.33 mill/uL (4.20-5.40); White Blood Cell (WBC) Count 1.3 thou/uL (4.8-10.8)
[2018-09-02] MEDS: Ferrous Sulfate 325 MG TAB PO SCH ×2 (08:50→16:07)
[2018-09-02] MEDS: Sildenafil Citrate 20 MG TAB PO SCH ×3 (08:50→20:23)
[2018-09-02] MEDS: Potassium Chloride 20 MEQ TAB PO SCH ×2 (08:51→16:07)
[2018-09-02] MEDS: Fluticasone Propionate Nasal Spray 16 gm Bottle NASAL SCH (08:51)
[2018-09-02] MEDS: Carvedilol 3.125 MG TAB PO SCH ×2 (08:51→20:22)
[2018-09-02] MEDS: AMOXicillin 250 MG CAP PO SCH ×2 (08:51→20:21)
[2018-09-02] MEDS: diphenhydrAMINE 25 MG CAP PO SCH (08:51)
[2018-09-02] MEDS: Nystatin Powder 15 GM BOT TOP SCH ×2 (08:52→20:23)
[2018-09-02] MEDS: Alogliptin 25 MG TAB PO SCH (08:52)
[2018-09-02] MEDS: Escitalopram Oxalate 20 mg Tablet PO SCH (09:06)
[2018-09-02] MEDS: Diphenoxylate HCl/Atropine Tablet PO PRN (12:38)
[2018-09-02] MEDS: Fluconazole 100 MG TAB PO SCH (12:39)
[2018-09-02] MEDS ORDERED: Furosemide 40 MG TAB PO SCH (14:00)
[2018-09-02] MEDS: Loperamide HCl 2 MG CAP PO PRN (18:03)
[2018-09-02] MEDS: Rivaroxaban 10 MG TAB PO SCH (20:22)
[2018-09-02] MEDS: HYDROcodone/Acetaminophen 10/325 mg Tablet PO PRN (20:23)
[2018-09-03] MEDS: Mometasone/Formoterol 120 PUFF INHALER INH SCH ×2 (05:34→18:36)
[2018-09-03 06:53] LABS: ALT (SGPT) Less than 7 U/L (8-55); AST (SGOT) 20 U/L (5-34); Albumin 2.6 g/dL (3.4-4.8); Alkaline Phosphatase 174 U/L (40-150); Anion Gap 10 mmol/L (10-20); BUN (Urea Nitrogen) 12 mg/dL (9.8-20.1); Bilirubin, Total 0.9 mg/dL (0.2-1.2); Calc. Creatinine Clearance 85 mL/min (70-130); Calcium 9.1 mg/dL (7.8-10.44); Carbon Dioxide 36 mmol/L (23-31); Chloride 90 mmol/L (98-107); Estimated GFR-MDRD 49; Globulin 4.3 g/dL (2.4-3.5); Glucose 86 mg/dL (80-115); Magnesium 1.5 mg/dL (1.6-2.6); Potassium 3.2 mmol/L (3.5-5.1); Protein, Total 6.9 g/dL (6.0-8.3); Sodium 133 mmol/L (136-145)
[2018-09-03] MEDS ORDERED: Furosemide 40 MG TAB PO SCH ×2 (07:30→08:00)
[2018-09-03] MEDS ORDERED: Potassium Chloride 20 MEQ TAB PO ONE (07:54)
[2018-09-03] MEDS: Sildenafil Citrate 20 MG TAB PO SCH ×3 (08:03→20:13)
[2018-09-03] MEDS: AMOXicillin 250 MG CAP PO SCH ×2 (08:03→20:11)
[2018-09-03] MEDS: Carvedilol 3.125 MG TAB PO SCH ×2 (08:04→20:12)
[2018-09-03] MEDS: Escitalopram Oxalate 20 mg Tablet PO SCH (08:04)
[2018-09-03] MEDS: Ferrous Sulfate 325 MG TAB PO SCH ×2 (08:04→16:40)
--- NOTE | 2018-09-03 08:04 | PDOC.FM ---
- Subjective Subjective: Patient reports feeling well this AM. States she had no issues getting up to urinate yesterday. Feels her swelling is continuing to improve. Denies any SOB, chest pain, N/V, diarrhea or constipation. - Objective MAR Reviewed: Yes Vital Signs & Weight: Vital Signs (12 hours) Temp Pulse Resp BP Pulse Ox 09/03/18 05:34 111 H 19 94 L 09/03/18 05:32 111 H 18 94 L 09/02/18 20:00 98.8 F 113 H 16 111/67 95 Weight Admit Weight 106.095 kg Weight 106.05 kg Most Recent Monitor Data Heart Rate from ECG 94 NIBP 95/54 I&O: 09/02/18 09/03/18 09/04/18 06:59 06:59 06:59 Intake Total 660 260 Output Total 6500 600 Balance -5840 -692 Result Diagrams: 09/03/18 05:17 09/03/18 05:17 <Jayna Domínguez - Last Filed: 09/03/18 11:03> - Objective Vital Signs & Weight: Vital Signs (12 hours) Temp Pulse Resp BP Pulse Ox 09/03/18 09:27 108 H 16 94 L 09/03/18 08:39 98.9 F 108 H 20 130/77 99 09/03/18 05:34 111 H 19 94 L 09/03/18 05:32 111 H 18 94 L Weight Admit Weight 106.095 kg Weight 106.05 kg Most Recent Monitor Data Heart Rate from ECG 94 NIBP 95/54 I&O: 09/02/18 09/03/18 09/04/18 06:59 06:59 06:59 Intake Total 660 260 Output Total 6500 600 Balance -5840 -579 Result Diagrams: 09/03/18 05:17 09/03/18 05:17 <Hussain Hernandez - Last Filed: 09/03/18 11:10> Phys Exam - Physical Examination Constitutional: NAD HEENT: moist MMs, sclera anicteric Neck: supple, full ROM Respiratory: no wheezing, no rales, no rhonchi, clear to auscultation bilateral Cardiovascular: RRR, no significant murmur Gastrointestinal: soft, non-tender, positive bowel sounds Musculoskeletal: edema present (1+ pitting edema in B/L ankles) Neurological: non-focal, moves all 4 limbs Psychiatric: normal affect, A&O x 3 Skin: no rash, normal turgor <Jayna Domínguez - Last Filed: 09/03/18 11:03> Dx/Plan (1) Anemia Code(s): D64.9 - ANEMIA, UNSPECIFIED Status: Acute (2) Cellulitis Code(s): L03.90 - CELLULITIS, UNSPECIFIED Status: Acute (3) Dermatitis Code(s): L30.9 - DERMATITIS, UNSPECIFIED Status: Acute (4) Hyponatremia Code(s): E87.1 - HYPO-OSMOLALITY AND HYPONATREMIA Status: Chronic (5) Leukopenia Code(s): D72.819 - DECREASED WHITE BLOOD CELL COUNT, UNSPECIFIED Status: Chronic Qualifiers: Leukopenia type: neutropenia (6) Neutropenia Code(s): D70.9 - NEUTROPENIA, UNSPECIFIED Status: Chronic Qualifiers: Neutropenia type: secondary to cancer chemotherapy Qualified Code(s): D70.1 - Agranulocytosis secondary to cancer chemotherapy; T45.1X5A - Adverse effect of antineoplastic and immunosuppressive drugs, initial encounter (7) Proctitis, radiation Code(s): K62.7 - RADIATION PROCTITIS Status: Acute (8) Volume overload Code(s): E87.70 - FLUID OVERLOAD, UNSPECIFIED Status: Acute (9) 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 - MALIGNANT NEOPLASM OF ANUS, UNSPECIFIED Status: Chronic (10) Hypomagnesemia Code(s): E83.42 - HYPOMAGNESEMIA Status: Resolved (11) Acute and chronic respiratory failure with hypoxia Code(s): J96.21 - ACUTE AND CHRONIC RESPIRATORY FAILURE WITH HYPOXIA Status: Acute (12) Afib Code(s): I48.91 - UNSPECIFIED ATRIAL FIBRILLATION Status: Chronic (13) Anal carcinoma Code(s): C21.0 - MALIGNANT NEOPLASM OF ANUS, UNSPECIFIED Status: Chronic (14) Compression fracture of L1 lumbar vertebra Code(s): S32.010A - WEDGE COMPRESSION FRACTURE OF FIRST LUMBAR VERTEBRA, INIT Status: Chronic (15) DMII (diabetes mellitus, type 2) Status: Chronic (16) HTN (hypertension) Code(s): I10 - ESSENTIAL (PRIMARY) HYPERTENSION Status: Chronic (17) MARLENE (obstructive sleep apnea) Code(s): G47.33 - OBSTRUCTIVE SLEEP APNEA (ADULT) (PEDIATRIC) Status: Chronic (18) Osteoporosis Code(s): M81.0 - AGE-RELATED OSTEOPOROSIS W/O CURRENT PATHOLOGICAL FRACTURE Status: Chronic (19) Physical deconditioning Code(s): R53.81 - OTHER MALAISE Status: Chronic (20) Pulmonary HTN Code(s): I27.20 - PULMONARY HYPERTENSION, UNSPECIFIED Status: Chronic (21) Sarcoidosis Code(s): D86.9 - SARCOIDOSIS, UNSPECIFIED Status: Chronic - Plan Plan: Volume overload: - Patient has had a negative fluid balance for the last few days w/ an output of almost 6L 2 days ago. Was given 1 80mg IV dose yesterday around 6AM and had a negative balance of 340 in the last 24 hours. However, developed a slight MARS overnight so consider holding lasix or giving a much smaller PO dose today after rounding on patient to evaluate clinical volume status. - Will continue with strict Is/Os & fluid restriction. MARS: - Resolved. - Will consider continuing gentle diuresis but will replace Mg with a small bolus of 150mL today which may help improve renal function. - Will monitor bun/cr with QD labs. Radiation induced dermatitis & possible superimposed cellulitis: - Will continue amoxil 10 day course. Chronic neutropenia likely 2/2 sarcoidosis: - Likely 2/[address] Rowe - WBC has been stable but will continue to monitor while in hospital w/ QD labs. [place] UTI: - Stable - Will finish course of diflucan and send home on remaining script if not completed before d/c. 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 - Bleeding has resolved. Hgb stable at 8.4 this AM. - Will continue to monitor H/H w/ QD labs. Hyponatremia: - Na down to 133 this AM. - Will continue to monitor w/ QD bloodwork. Anal SCC: - Followed by Dr. Kumari. - s/p 2 days of chemo and radiation tx Physical deconditioning: - Patient stable from d/c but would benefit from a stay in a SNF given her frail condition and multiple medical issues. Was denied by [facility] [place]. Did not want to pay fee required by [facility] that did not even include PT so opted for [facility]. - Referral made to [facility] yesterday but patient has already established with them prior to admission so free to d/c once back on all PO meds and voiding on her own. Bladder spasm: - Will continue hyocyamine & mirbetriq. - Will do a trial without ibarra today and have patient use bedside commode. - If successful ok to d/c home w/o ibarra in place. pre-DM: - last A1c on February of 2018 5.8. - Will continue w/ ACHS BG checks and mild SSI PRN. Not on any meds at home. Will educate on proper diabetes diet and encourage f/u with PCP to recheck A1c. Hypokalemia: - K low at 3.2 this AM. Has been low the last several days despite taking 20mEq PO BID. - Will continue 20mEq BID PO daily dosing with an additional 20meQ once this AM and recheck a Mg and K level either later today and/or tomorrow. Hypomagnesemia: - Mg down to 1.5 this AM. - Will replace with 6g IV today and repeat level either later today and/or tomorrow. Hx of MARLENE: - Will continue CPAP qhs. Hx of Sarcoidosis: - Aware, patient follows w/ Dr. Rowe. Hx of atrial fibrillation: - Aware, will continue coreg & xarelto. Dispo: Stable for possible d/c later today. Will consider repeating a BMP and electrolytes later this afternoon after replacement or keep one more day to correct derangements and likely d/c tomorrow. <Jyana Domínguez - Last Filed: 09/03/18 11:03> Attending Addendum - Attending Addendum Date/Time: 09/03/18 1107 I personally evaluated the patient and discussed the management with Dr. Domínguez. I agree with the History, Examination, Assessment and Plan documented above with any addition or exceptions noted below. Cellulitis improved. Lytes off, restoring. Diuresing. Radiation dermatitis bleeding from chronically moist from urine--changing BR pattern. <Hussain Hernandez - Last Filed: 09/03/18 11:10>
[2018-09-03] MEDS: Potassium Chloride 20 MEQ TAB PO SCH ×2 (08:06→16:40)
[2018-09-03] MEDS: Fluticasone Propionate Nasal Spray 16 gm Bottle NASAL SCH (08:09)
[2018-09-03] MEDS: diphenhydrAMINE 25 MG CAP PO SCH (08:09)
[2018-09-03] MEDS: Alogliptin 25 MG TAB PO SCH (08:13)
[2018-09-03] MEDS ORDERED: MAGNESIUM SULFATE IVPB SCH ×3 (08:15→09:15)
[2018-09-03] MEDS ORDERED: DEXTROSE 5% IVPB SCH ×3 (08:15→09:15)
[2018-09-03] MEDS ORDERED: WATER IVPB SCH ×3 (08:15→09:15)
[2018-09-03 08:28] LABS: Hemoglobin 8.4 g/dL (12.0-16.0); Mean Corpuscular HGB CONC 31.8 g/dL (32.0-36.0); Mean Corpuscular Hemoglobin 34.5 pg (27.0-31.0); Mean Platelet Volume 10.3 fL (7.4-10.4); Platelet Count 69 thou/uL (130-400); RBC Distribution Width 21.5 % (11.5-14.5); Red Blood Cell (RBC) Count 2.44 mill/uL (4.20-5.40); White Blood Cell (WBC) Count 1.5 thou/uL (4.8-10.8)
[2018-09-03 08:29] LABS: Band 15 % (5-11); Eosinophils 1 % (0-10); Lymphocytes 16 % (21-51); MDiff Complete? YES; Metamyelocyte 2 % (0-0); Monocytes 15 % (0-10); Neutrophil 50 % (42-75); PLT Morphology Comment Appears Decreased
[2018-09-03] MEDS: Nystatin Powder 15 GM BOT TOP SCH ×2 (10:43→20:12)
[2018-09-03] MEDS: Diphenoxylate HCl/Atropine Tablet PO PRN ×2 (11:00→16:40)
[2018-09-03] MEDS ORDERED: Furosemide 80 MG TAB PO SCH (12:00)
[2018-09-03] MEDS: Fluconazole 100 MG TAB PO SCH (13:47)
[2018-09-03] MEDS: Morphine 2 MG/ML SYRINGE SLOW IVP PRN (16:45)
[2018-09-03] MEDS: Rivaroxaban 10 MG TAB PO SCH (20:13)
[2018-09-03] MEDS: Loperamide HCl 2 MG CAP PO PRN (20:13)
[2018-09-04] MEDS: Mometasone/Formoterol 120 PUFF INHALER INH SCH (06:12)
[2018-09-04 06:16] LABS: ALT (SGPT) Less than 7 U/L (8-55); AST (SGOT) 19 U/L (5-34); Albumin 2.5 g/dL (3.4-4.8); Alkaline Phosphatase 167 U/L (40-150); Anisocytosis SLIGHT = 6-15 cells (100X) (0-5/hpf); BUN (Urea Nitrogen) 12 mg/dL (9.8-20.1); Band 2 % (5-11); Bilirubin, Total 0.9 mg/dL (0.2-1.2); Calc. Creatinine Clearance 87 mL/min (70-130); Calcium 8.9 mg/dL (7.8-10.44); Estimated GFR-MDRD 51; Glucose 97 mg/dL (80-115); Hemoglobin 8.2 g/dL (12.0-16.0); Lymphocytes 11 % (21-51); MDiff Complete? YES; Macrocytosis SLIGHT = 6-15 cells (100X) (0-5/hpf); Mean Corpuscular HGB CONC 33.1 g/dL (32.0-36.0); Mean Corpuscular Hemoglobin 35.8 pg (27.0-31.0); Mean Platelet Volume 11.1 fL (7.4-10.4); Metamyelocyte 1 % (0-0); Monocytes 19 % (0-10); Neutrophil 67 % (42-75); PLT Morphology Comment Appears Decreased; Platelet Count 61 thou/uL (130-400); Protein, Total 6.5 g/dL (6.0-8.3); RBC Distribution Width 20.8 % (11.5-14.5); Red Blood Cell (RBC) Count 2.29 mill/uL (4.20-5.40); White Blood Cell (WBC) Count 1.5 thou/uL (4.8-10.8)
[2018-09-04 06:52] LABS: Chloride 87 mmol/L (98-107); Sodium 133 mmol/L (136-145)
[2018-09-04 06:55] LABS: Anion Gap 14 mmol/L (10-20); Carbon Dioxide 35 mmol/L (23-31)
[2018-09-04 07:28] VITALS: BP 126/72; TEMP 97.9
[2018-09-04] MEDS: Escitalopram Oxalate 20 mg Tablet PO SCH (08:30)
--- NOTE | 2018-09-04 09:11 | PDOC.FM ---
- Subjective Subjective: LORNA overnight. Pt reports she continues to diurese and swelling/pain have improved from edema. Rash improved. No complaints. - Objective Vital Signs & Weight: Vital Signs (12 hours) Temp Pulse Resp BP Pulse Ox 09/04/18 07:25 97.9 F 100 20 126/72 91 L 09/04/18 06:10 89 16 95 09/04/18 04:00 99.1 F 101 H 18 130/80 100 09/04/18 00:00 97.9 F 100 18 125/70 94 L Weight Admit Weight 106.095 kg Weight 104.19 kg Most Recent Monitor Data Heart Rate from ECG 94 NIBP 95/54 I&O: 09/03/18 09/04/18 09/05/18 06:59 06:59 06:59 Intake Total 260 900 Output Total 600 400 Balance -340 500 Result Diagrams: 09/04/18 03:45 09/04/18 03:45 <Ronald Mendez - Last Filed: 09/04/18 09:09> - Objective Vital Signs & Weight: Vital Signs (12 hours) Temp Pulse Resp BP Pulse Ox 09/04/18 09:50 91 16 94 L 09/04/18 07:25 97.9 F 100 20 126/72 91 L 09/04/18 06:10 89 16 95 09/04/18 04:00 99.1 F 101 H 18 130/80 100 09/04/18 00:00 97.9 F 100 18 125/70 94 L Weight Admit Weight 106.095 kg Weight 104.19 kg Most Recent Monitor Data Heart Rate from ECG 94 NIBP 95/54 I&O: 09/03/18 09/04/18 09/05/18 06:59 06:59 06:59 Intake Total 260 900 Output Total 600 400 Balance -340 500 Result Diagrams: 09/04/18 03:45 09/04/18 03:45 <Liban Montero - Last Filed: 09/04/18 11:56> Phys Exam - Physical Examination Constitutional: NAD HEENT: PERRLA, sclera anicteric Neck: no nodes, no JVD Respiratory: no wheezing, no rales, clear to auscultation bilateral scattered rhonchi Cardiovascular: RRR, no significant murmur, no rub Gastrointestinal: soft, non-tender, no distention, positive bowel sounds Musculoskeletal: pulses present, edema present (pitting above waist; however, 1 + LE, likley dependent) Neurological: non-focal, moves all 4 limbs Skin: no rash, cap refill <2 seconds <Ronald Mendez - Last Filed: 09/04/18 09:09> Dx/Plan (1) Cellulitis Code(s): L03.90 - CELLULITIS, UNSPECIFIED Status: Acute (2) Dermatitis Code(s): L30.9 - DERMATITIS, UNSPECIFIED Status: Acute (3) Neutropenia Code(s): D70.9 - NEUTROPENIA, UNSPECIFIED Status: Chronic Qualifiers: Neutropenia type: secondary to cancer chemotherapy Qualified Code(s): D70.1 - Agranulocytosis secondary to cancer chemotherapy; T45.1X5A - Adverse effect of antineoplastic and immunosuppressive drugs, initial encounter (4) Proctitis, radiation Code(s): K62.7 - RADIATION PROCTITIS Status: Acute (5) 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 - MALIGNANT NEOPLASM OF ANUS, UNSPECIFIED Status: Chronic (6) DMII (diabetes mellitus, type 2) Status: Chronic (7) HTN (hypertension) Code(s): I10 - ESSENTIAL (PRIMARY) HYPERTENSION Status: Chronic (8) MARLENE (obstructive sleep apnea) Code(s): G47.33 - OBSTRUCTIVE SLEEP APNEA (ADULT) (PEDIATRIC) Status: Chronic (9) Volume overload Code(s): E87.70 - FLUID OVERLOAD, UNSPECIFIED Status: Acute (10) Hypomagnesemia Code(s): E83.42 - HYPOMAGNESEMIA Status: Resolved - Plan Plan: Volume overload: - Pts weight is back to near admission weight and symptoms improved - replace K+ and check mag - ok for dc to home today MARS: - Resolved. - improved with increased diuresis Radiation induced dermatitis & possible superimposed cellulitis: - resolved, amoxil and diflucan completed Chronic neutropenia likely 2/2 sarcoidosis: - Likely 2/[address] Rowe - WBC has been stable but will continue to monitor while in hospital w/ QD labs. 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 Anal SCC: - Followed by Dr. Kumari. - s/p 2 days of chemo and radiation tx Physical deconditioning: - stable for DC, insurance has denied all facilities and she cannot afford mendoza alutiiq - will dc to home with HH PT/OT Bladder spasm: - Will continue hyocyamine & mirbetriq. - ibarra removed, ok for DC to home pre-DM: - ACHS accuchecks and mild SSI Hypokalemia: - replace, check mag Hypomagnesemia: - Mg down to 1.5 this AM. - Will replace with 6g IV today and repeat level either later today and/or tomorrow. Hx of MARLENE: - Will continue CPAP qhs. Hx of Sarcoidosis: - Aware, patient follows w/ Dr. Rowe. Hx of atrial fibrillation: - Aware, will continue coreg & xarelto. Dispo: Plan for DC to home with HH pt/ot. Replace elytes and recommend close OP f/u. <Ronald Mendez - Last Filed: 09/04/18 09:09> Attending Addendum - Attending Addendum Date/Time: 09/04/18 [id number] I personally evaluated the patient and discussed the management with Dr. Mendez. I agree with and repeated the History, Examination, Assessment and Plan documented above with any addition or exceptions noted below. NO f/c. No n/v. No cp/sob. Exam reassuring. Plan for d/c today. <Liban Montero - Last Filed: 09/04/18 11:56>
[2018-09-04] MEDS: Sildenafil Citrate 20 MG TAB PO SCH (09:52)
[2018-09-04] MEDS: Alogliptin 25 MG TAB PO SCH (09:53)
[2018-09-04] MEDS: Carvedilol 3.125 MG TAB PO SCH (09:54)
[2018-09-04] MEDS: Ferrous Sulfate 325 MG TAB PO SCH (09:54)
[2018-09-04] MEDS: diphenhydrAMINE 25 MG CAP PO SCH (09:54)
[2018-09-04] MEDS: Potassium Chloride 20 MEQ TAB PO SCH (09:54)
[2018-09-04] MEDS: Fluticasone Propionate Nasal Spray 16 gm Bottle NASAL SCH (09:55)
[2018-09-04] MEDS: Nystatin Powder 15 GM BOT TOP SCH (09:56)
[2018-09-04] MEDS ORDERED: Potassium Chloride 20 MEQ TAB PO SCH (10:15)
[2018-09-04] MEDS: Acetaminophen 325 MG TAB PO PRN (14:02)
== END 2018-09-04 14:22 | disposition home health service (06) | DRG 602 ==
LOC: ERS 17:01 → T4-B 18:20 → ONC 08-20 15:35 → T4-A 08-27 17:22
PROVIDERS: ADMIT Student in an Organized Health Care Education/Training Program; ATTEND Student in an Organized Health Care Education/Training Program
PROC: 30233N1 Transfusion of Nonautologous Red Blood Cells into Peripheral Vein, Percutaneous Approach (ICD-10-PCS; principal; 2018-08-21)
DX: L03.315 Cellulitis of perineum (principal); J96.21 Acute and chronic respiratory failure with hypoxia; D61.810 Antineoplastic chemotherapy induced pancytopenia; C21.0 Malignant neoplasm of anus, unspecified; E87.1 Hypo-osmolality and hyponatremia; N17.9 Acute kidney failure, unspecified; K62.5 Hemorrhage of anus and rectum; N39.0 Urinary tract infection, site not specified; B37.89 Other sites of candidiasis; I48.91 Unspecified atrial fibrillation; E11.9 Type 2 diabetes mellitus without complications; I10 Essential (primary) hypertension; G47.33 Obstructive sleep apnea (adult) (pediatric); I27.20 Pulmonary hypertension, unspecified; K62.7 Radiation proctitis; D72.819 Decreased white blood cell count, unspecified; L59.8 Other specified disorders of the skin and subcutaneous tissue related to radiation; D64.9 Anemia, unspecified; R50.81 Fever presenting with conditions classified elsewhere; E83.42 Hypomagnesemia; E87.70 Fluid overload, unspecified; T45.1X5A Adverse effect of antineoplastic and immunosuppressive drugs, initial encounter; Z88.2 Allergy status to sulfonamides; Z80.1 Family history of malignant neoplasm of trachea, bronchus and lung; Z80.9 Family history of malignant neoplasm, unspecified
CPT/HCPCS: 36415; 36416; 36430; 71045; 71046; 77280; 77386; 77412; 80048; 80053; 80202; 81003; 81015; 82565; 83605; 83735; 83880; 83930; 83935; 84145; 84300; 85025; 86850; 86900; 86901; 87040; 87070; 87077; 87086; 87149; 87205; 93005; 93306; 94640; 96361; 96365; 96367; 96375; G8978-GP-CL; G8979-GP-CI; J1450; J1642; J1940; J2270; J2543; J3370; J3475; J3490; J7050; J7070; J7620; P9016